=== PATIENT | female | born 1935 | race Caucasian/White ===

== ENCOUNTER 2017-01-25 10:34 | Outpatient (CLI) | payer MEDICARE, MEDICAID ==
[2017-01-25 13:15] LABS: ALT (SGPT) 21 U/L (8-55); AST (SGOT) 23 U/L (5-34); Alkaline Phosphatase 141 U/L (40-150); Anion Gap 13 mmol/L (10-20); BUN (Urea Nitrogen) 21 mg/dL (9.8-20.1); Calc. Creatinine Clearance 0 mL/min (70-130); Calcium 10.1 mg/dL (7.8-10.44); Carbon Dioxide 28 mmol/L (23-31); Chloride 104 mmol/L (98-107); Estimated GFR-MDRD 41; Globulin 3.5 g/dL (2.4-3.5); Protein, Total 7.7 g/dL (6.0-8.3)
[2017-01-25 13:17] LABS: #Eosinphils 0.2 thou/uL (0.0-0.7); #Lymphocytes 1.4 thou/uL (1.20-3.40); #Monocytes 0.7 thou/uL (0.11-0.59); #Neutrophils 6.4 thou/uL (1.40-6.50); %Basophils 0.5 % (0.0-1.0); %Eosinophils 2.4 % (0.0-10.0); %Lymphocytes 16.5 % (21.0-51.0); %Monocytes 7.4 % (0.0-10.0); Hematocrit 45.6 % (36.0-47.0); Macrocytosis SLIGHT = 6-15 cells (100X) (0-5/hpf); Mean Platelet Volume 7.6 fL (7.4-10.4); Polychromasia SLIGHT = 2-3 cells (100X) (0-2/hpf); Red Blood Cell (RBC) Count 4.16 mill/uL (4.20-5.40); White Blood Cell (WBC) Count 8.8 thou/uL (4.8-10.8)
--- NOTE | 2017-01-25 16:17 | RAD ---
TWO VIEW CHEST SERIES: 01/25/17 INDICATION: Preoperative evaluation. FINDINGS: The cardiac silhouette is enlarged. There has been placement of a left subclavian approach dual lead cardiac pacing device with leads overlying the expected region of the right atrium and right ventri ruben. There is vascular calcification. Chest is otherwise stable to 11/26/14. IMPRESSION: No focal consolidation. Prominent cardiac silhouette with indwelling left sided cardiac pacing device. POS: [facility]
== END 2017-01-25 10:35 | disposition home or self-care (01) ==
LOC: LABBT 10:34
PROVIDERS: ATTEND Specialist
DX: Z01.818 Encounter for other preprocedural examination (principal)
CPT/HCPCS: 71020; 80053; 85025; 93005; 93010

== ENCOUNTER 2017-02-05 08:43 | Observation (INO) | payer MEDICARE, MEDICAID ==
[2017-01-25 10:58] VITALS: BMI 28.7
[2017-02-05] MEDS ORDERED: CEFAZOLIN/Water 2 GM/20 ML SYRINGE ONE (09:32)
[2017-02-05] MEDS ORDERED: Bupivacaine PF 0.5% 30 ML VIAL ONE (10:06)
[2017-02-05] MEDS ORDERED: Midazolam HCl 2 mg/2 ml Vial ONE (10:07)
[2017-02-05] MEDS ORDERED: Fentanyl 100 MCG/2 ML VIAL ONE ×4 (10:07→15:05)
[2017-02-05] MEDS ORDERED: Ondansetron HCl/PF 4 MG/2 ML Vial ONE (11:10)
[2017-02-05] MEDS ORDERED: Lidocaine 1% PF 5 ML VIAL ONE (11:10)
[2017-02-05] MEDS ORDERED: diphenhydrAMINE 50 MG/ML VIAL ONE (11:10)
[2017-02-05] MEDS ORDERED: Metoclopramide HCl 10 MG/2 ML VIAL ONE (11:10)
[2017-02-05] MEDS ORDERED: Propofol 200 MG/20 ML VIAL ONE (11:10)
[2017-02-05] MEDS ORDERED: Glycopyrrolate 0.2 MG/ML 5 ML SYRINGE ONE (11:10)
[2017-02-05] MEDS ORDERED: Promethazine HCl 25 MG/ML VIAL IM/IV PRN (13:07)
[2017-02-05] MEDS ORDERED: Non-Formulary Medication 1 EACH PO PRN (13:07)
[2017-02-05] MEDS ORDERED: Ondansetron HCl/PF 4 MG/2 ML Vial IVP PRN ×2 (13:07→19:34)
[2017-02-05] MEDS ORDERED: Promethazine HCl 25 MG/ML VIAL ONE (13:23)
[2017-02-05] MEDS ORDERED: Morphine 4 MG/ML Carpuject ONE ×2 (15:36→16:14)
--- NOTE | 2017-02-05 18:52 | OP ---
DATE OF PROCEDURE: 02/05/2017 PREOPERATIVE DIAGNOSIS: Ventral incisional hernia. POSTOPERATIVE DIAGNOSIS: Ventral incisional hernia. OPERATION PERFORMED: Laparoscopic ventral hernia repair using a 10 x 15 cm Ventralex mesh patch. SURGEON: Panchito Martinez M.D. ANESTHESIA: General endotracheal. INDICATIONS: The patient is a 81-year-old white female. She is 3 years status post laparoscopic ri ght hemicolectomy. Her extraction site was in the right upper quadrant. She was recently recognize d to have developed an incisional hernia at this location. This appeared to be reducible, but enlar ging and I recommended repair. OPERATIVE PROCEDURE IN DETAIL: Informed consent was obtained. The patient was taken to the operati ng room where general endotracheal anesthesia was obtained with the patient in supine position. Abd omen was prepped with ChloraPrep and draped in sterile fashion. Local anesthetic was infiltrated an d a 5 mm left lateral abdominal incision was created through which a Veress needle was passed into t he peritoneal cavity and pneumoperitoneum established using carbon dioxide up to a pressure of 15 mm Hg. A 5 mm trocar port was passed through this same incision. Laparoscopic camera was passed throu gh this port. Under direct vision, 2 additional ports were placed including a 12 mm left upper quad rant port and a 5 mm left lower quadrant port. Attention was turned to the hernia in the right upper quadrant. There were absolutely no adhesions to the anterior abdominal wall. The hernia was easily visualized. It was significantly larger than anticipated, although there did not appear to be a large hernia sac. It is possible that this was a partial thickness hernia with complete disruption of the posterior layer and only partial disrupti on of the anterior layer. The fascial dimensions of this appeared to be 7 cm x 4 cm. Using 2 percutaneous puncture sites, the defect was closed using 4 interrupted sutures of 0 Ethibond , placed with the GraNee needle. These were tied with a pressure deflated with excellent closure of the defect. A 10 x 15 cm Ventralex mesh patch was obtained and prepared on the back table with placement of 4 qu adrant stay sutures, again using 0 Ethibond. The mesh was moistened and placed in the abdominal cav ity. The stay sutures were withdrawn through the abdominal wall at appropriate locations again usin g the GraNee needle. These sutures were all secured giving excellent approximation of the mesh over the hernia defect. A final Ethibond suture was placed in the center of the mesh using the GraNee n eedle. The secure strap device was then used to place a series of tacks circumferentially around the outsid e of the mesh patch as well as internally. This led to excellent mesh coverage. The 12 mm port site fascia was closed with 0 Vicryl suture using a GraNee needle. All ports and ins truments were removed under direct vision. Pneumoperitoneum was carefully evacuated. A 0.25% James ine with epinephrine was infiltrated in each port site and skin edges approximated with 4-0 Monocryl subcuticular suture. Dermabond was placed externally. An abdominal binder was placed as well. Th ere were no complications. The patient tolerated the procedure well and was taken to recovery room in stable condition.
[2017-02-05 19:28] LABS: Prothrombin Time 17.9 SEC (12.0-14.7)
[2017-02-05] MEDS ORDERED: Dextrose 50% Abboject 50 ML SYRINGE SLOW IVP PRN (19:34)
[2017-02-05] MEDS ORDERED: Promethazine HCl 25 MG/ML VIAL IM PRN (19:34)
[2017-02-05] MEDS ORDERED: hydrALAZINE 20 MG/ML VIAL SLOW IVP PRN (19:34)
[2017-02-05] MEDS ORDERED: HYDROcodone/Acetaminophen 7.5/325 mg Tablet PO PRN (19:34)
[2017-02-05] MEDS ORDERED: Dextrose 5% in Water 1,000 ML IV PRN (19:34)
[2017-02-05] MEDS ORDERED: Morphine 10 MG/ML VIAL SLOW IVP PRN (19:34)
[2017-02-05] MEDS: Morphine 10 MG/ML VIAL SLOW IVP PRN ×2 (20:03→22:40)
[2017-02-05] MEDS: D5 1/2 NS w/20 mEq KCL 1,000 ML IV SCH (20:09)
[2017-02-05] MEDS: Flecainide 50 MG TAB PO SCH (20:12)
[2017-02-05] MEDS ORDERED: Famotidine 20 MG TAB PO SCH (21:00)
[2017-02-05] MEDS ORDERED: cloNIDine 0.1 MG TAB PO SCH (21:00)
[2017-02-05] MEDS ORDERED: Digoxin 0.125 MG TAB PO SCH (21:00)
[2017-02-05] MEDS ORDERED: Atorvastatin Calcium 20 MG TAB PO SCH (21:00)
[2017-02-05] MEDS ORDERED: Enoxaparin Sodium 30 MG/0.3 ML SYRINGE SC SCH (21:00)
[2017-02-05] MEDS: HYDROcodone/Acetaminophen 7.5/325 mg Tablet PO PRN (21:04)
[2017-02-06 04:33] LABS: #Lymphocytes 1.3 thou/uL (1.20-3.40); #Monocytes 0.5 thou/uL (0.11-0.59); #Neutrophils 11.5 thou/uL (1.40-6.50); %Basophils 0.3 % (0.0-1.0); %Eosinophils 0.3 % (0.0-10.0); %Lymphocytes 9.5 % (21.0-51.0); %Monocytes 3.4 % (0.0-10.0); Hematocrit 45.9 % (36.0-47.0); Mean Platelet Volume 7.3 fL (7.4-10.4); Red Blood Cell (RBC) Count 4.19 mill/uL (4.20-5.40); White Blood Cell (WBC) Count 13.3 thou/uL (4.8-10.8)
[2017-02-06 04:49] LABS: Prothrombin Time 18.5 SEC (12.0-14.7)
[2017-02-06 04:51] LABS: Anion Gap 18 mmol/L (10-20); BUN (Urea Nitrogen) 17 mg/dL (9.8-20.1); Calc. Creatinine Clearance 49 mL/min (70-130); Calcium 9.3 mg/dL (7.8-10.44); Carbon Dioxide 20 mmol/L (23-31); Chloride 102 mmol/L (98-107); Estimated GFR-MDRD 49
[2017-02-06] MEDS: HYDROcodone/Acetaminophen 7.5/325 mg Tablet PO PRN ×2 (05:08→14:57)
[2017-02-06] MEDS ORDERED: Aspirin 325 mg Enteric Coated Tablet PO SCH (09:00)
[2017-02-06] MEDS ORDERED: Allopurinol 100 MG TAB PO SCH (09:00)
[2017-02-06] MEDS ORDERED: Letrozole 2.5 MG TAB PO SCH (09:00)
[2017-02-06] MEDS ORDERED: Potassium Chloride 20 MEQ TAB PO SCH (09:00)
[2017-02-06] MEDS ORDERED: FLU VACC TS2017-18 (>65YR) 0.5 ML SYRINGE IM ONE (09:00)
[2017-02-06] MEDS ORDERED: Furosemide 40 MG TAB PO SCH (09:00)
[2017-02-06] MEDS ORDERED: Hydroxyurea 500 MG CAP PO SCH (09:00)
[2017-02-06] MEDS: D5 1/2 NS w/20 mEq KCL 1,000 ML IV SCH (09:56)
[2017-02-06] MEDS: Flecainide 50 MG TAB PO SCH (09:59)
[2017-02-06] MEDS ORDERED: Aspirin 81 mg Enteric Coated Tablet PO SCH (10:45)
[2017-02-06 12:15] VITALS: BP 142/83; TEMP 98.2
[2017-02-06] MEDS ORDERED: Warfarin Sodium 5 MG TAB PO SCH (17:00)
[2017-02-07] MEDS ORDERED: Aspirin 81 mg Enteric Coated Tablet PO SCH (09:00)
[2017-02-07] MEDS ORDERED: Warfarin Sodium 2.5 MG TAB PO SCH (17:00)
== END 2017-02-06 16:22 | disposition home or self-care (01) ==
LOC: SDC 08:43 → SURG A 19:33
PROVIDERS: ADMIT Specialist; ATTEND Specialist
PROC: 0WUF4JZ Supplement Abdominal Wall with Synthetic Substitute, Percutaneous Endoscopic Approach (ICD-10-PCS; principal; 2017-02-05)
DX: K43.2 Incisional hernia without obstruction or gangrene (principal); I48.0 Paroxysmal atrial fibrillation; I10 Essential (primary) hypertension; Z79.82 Long term (current) use of aspirin; Z79.01 Long term (current) use of anticoagulants; Z79.899 Other long term (current) drug therapy; Z86.73 Personal history of transient ischemic attack (TIA), and cerebral infarction without residual deficits; Z85.3 Personal history of malignant neoplasm of breast; Z82.49 Family history of ischemic heart disease and other diseases of the circulatory system
CPT/HCPCS: 49654; 80048; 85025; 85610 ×2; 96361 ×2; 96372; 96374 ×2; 96376; 97139; G0008; G0378; Q2036; 36415; 90471; 90682; J0131; J1200; J1650; J2001; J2250; J2270; J2405; J2550; J2704; J2765; J3010; S0020

== ENCOUNTER 2017-08-31 13:46 | Observation (INO) | payer MEDICARE, MEDICAID ==
[~2017-08-31 13:46] MED LIST: Iopamidol 370 76% 100 ML VIAL ONE
[2017-08-31 14:13] LABS: Hemoglobin 15.1 g/dL (12.0-16.0); Mean Corpuscular HGB CONC 34.4 g/dL (32.0-36.0); Mean Corpuscular Hemoglobin 37.1 pg (27.0-31.0); Mean Platelet Volume 7.5 fL (7.4-10.4); Platelet Count 346 thou/uL (130-400); RBC Distribution Width 15.1 % (11.5-14.5); Red Blood Cell (RBC) Count 4.08 mill/uL (4.20-5.40); White Blood Cell (WBC) Count 7.9 thou/uL (4.8-10.8)
[2017-08-31 14:19] LABS: INR-International Normal Ratio 2.9; PTT 55.9 SEC (22.9-36.1); Prothrombin Time 31.3 SEC (12.0-14.7)
[2017-08-31 14:24] LABS: ALT (SGPT) 23 U/L (8-55); AST (SGOT) 30 U/L (5-34); Alkaline Phosphatase 110 U/L (40-150); Anion Gap 15 mmol/L (10-20); BUN (Urea Nitrogen) 20 mg/dL (9.8-20.1); CK (CPK) 103 U/L (29-168); Calc. Creatinine Clearance 0 mL/min (70-130); Carbon Dioxide 23 mmol/L (23-31); Chloride 106 mmol/L (98-107); Estimated GFR-MDRD 40; Globulin 3.9 g/dL (2.4-3.5); Glucose 101 mg/dL (83-110); Potassium 4.7 mmol/L (3.5-5.1); Protein, Total 7.9 g/dL (6.0-8.3); Sodium 139 mmol/L (136-145)
[2017-08-31 14:28] LABS: CKMB 3.6 ng/mL (0-6.6); Troponin I 0.015 ng/mL (< 0.028)
--- NOTE | 2017-08-31 14:36 | CT ---
NONCONTRAST HEAD CT: COMPARISON: 05/05/15. TECHNIQUE: Noncontrast head CT is performed from the skull base to the skull vertex. HISTORY: Left arm tingling since this morning. The patient has dizziness, syncope, and nausea. FINDINGS: Stable malacic changes involving the right occipital parietal and posterior frontal lobe. There is a ssociated white matter hypodensity. Additional malacic change is identified in the right frontal lob e. The remainder of the cerebrum demonstrates preservation of cortical peters-white matter differentia tion. No evidence of hydrocephalus. No midline shift. Basilar cisterns are patent. No parenchymal hemorrhage or extraaxial hematoma. Calvarium is intact. Adequate aeration of the sinuses and mastoid air cells. There is cavernous carotid atherosclerosis. IMPRESSION: No acute intracranial process. Results of the study were discussed with Dr. Voss, 08/31/17 at 2:08 p.m. CODE CR POS: [facility]
[2017-08-31 14:37] LABS: #Basophils 0.1 thou/uL (0.0-0.2); #Eosinphils 0.2 thou/uL (0.0-0.7); #Lymphocytes 1.9 thou/uL (1.20-3.40); #Monocytes 0.5 thou/uL (0.11-0.59); #Neutrophils 5.3 thou/uL (1.40-6.50); %Basophils 1.3 % (0.0-1.0); %Lymphocytes 23.6 % (21.0-51.0); %Monocytes 6.4 % (0.0-10.0); %Neutrophils 66.8 % (42.0-75.0); MDiff Complete? YES; Macrocytosis SLIGHT = 6-15 cells (100X) (0-5/hpf); PLT Morphology Comment Appears Adequate; Polychromasia SLIGHT = 2-3 cells (100X) (0-2/hpf)
--- NOTE | 2017-08-31 14:51 | CT ---
CT ANGIOGRAM OF THE NECK CT ANGIOGRAM OF THE HEAD: HISTORY: Left-sided tingling and dizziness. Syncope. COMPARISON: 05/05/15. TECHNIQUE: CT angiogram of the head and neck were performed in the axial plane. Three-dimensional reformatted i mages are submitted for interpretation. FINDINGS: Postcontrast head CT demonstrates malacic and gliotic changes which have already been described. No obvious loss of cortical peters-white matter differentiation. Bilateral ocular lens implants are noted and intact. Both globes are intact. Retrobulbar fat is pre served. Symmetric attenuation of the optic nerve and ocular rectus muscles. Adequate aeration of sinuses and mastoid air cells. Aerodigestive tract is patent. No mucosal abnormality. No obvious masses within the oral cavity. M idline fatty raphae of the tongue appears to be preserved. Epiglottis has a normal caliber. Preepig lottic fat is preserved. Minimal heterogeneity of the right thyroid lobe. Symmetric attenuation of the parotid and submandibular glands. Sternocleidomastoid is unremarkable. No evidence of lymphadenopathy by size criteria. Cervical spine vertebral body height is maintained. No fracture. Varying degrees of central canal s tenosis and foraminal narrowing on the basis of degenerative change. The current study is not tailor ed to assess the overall degree of stenosis. Lung apices and upper mediastinum are unremarkable. CT ANGIOGRAM: The aortic arch has appropriate enhancement and luminal diameter. Atherosclerosis is noted. RIGHT CAROTID: The right carotid artery origin has appropriate enhancement and luminal diameter. There is calcified and noncalcified plaque in the right carotid bifurcation. There is absence of contrast in the right carotid bifurcation and throughout the entire right internal carotid artery to the level of the mast oid segment. LEFT CAROTID: The origin of the left carotid artery is appropriate in terms of its degree of enhancement and lumina l diameter. The left common carotid artery has appropriate enhancement and luminal diameter. There is evidence of previous left carotid endarterectomy change, similar to the prior examination. The le ft carotid bifurcation and internal carotid artery have appropriate enhancement and luminal diameter. Bilateral subclavian arteries are patent. The left and right cervicovertebral arteries are patent th roughout the course of the neck. The left vertebral artery is dominant. CT ANGIOGRAM OF THE HEAD: There is diminutive intracranial right internal carotid artery. Atherosclerosis in both cavernous se gments are noted. The intracranial left internal carotid artery is unremarkable. ANTERIOR CIRCULATION: The left and right A1 segments have appropriate enhancement and luminal diameter. Both A2 segments h ave appropriate enhancement and luminal diameter. The left and right M1 segments have appropriate en hancement and luminal diameter. Symmetric proximal MVA branches. POSTERIOR CIRCULATION: Both vertebral arteries supply a normal-appearing basilar artery. Limited evaluation of the PICA art eries. Both P1 segments have symmetric enhancement and luminal diameter. 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 Findings are similar to the previous exami nation. There is a small amount of enhancement in the intracranial segment of the right internal car otid artery which is presumed to be due to collateral flow. Findings are similar to the previous exa mination. Nevertheless, no significant stenosis in the anterior circulation on the right side. Results of the study were discussed with Dr. Gtz 08/31/17 at 2:26 p.m. CODE CR POS: [facility]
[2017-08-31 15:06] LABS: Bilirubin Negative (Negative); Blood, Urine Small (Negative); Clarity CLEAR (Clear); Glucose, Urine (Dipstick) Negative (Negative); Leukocyte Negative (Negative); Nitrite Negative (Negative); Protein, Urine (Dipstick) Negative (Neg-Trace); Urobilinogen 0.2 mg/dL (0.2-1.0)
[2017-08-31 15:08] LABS: Bacteria/HPF None Seen HPF (None Seen); Hyaline Casts/LPF 0-3 HYALINE CAST LPF (0-3 Hyaline); Pathc Cast-AUWi Flag 0.14 (0-2.49); Squamous Epithelial 0-3 HPF (0-3); WBC/HPF 0-3 HPF (0-3)
[2017-08-31] MEDS ORDERED: hydrALAZINE 20 MG/ML VIAL SLOW IVP PRN (16:38)
[2017-08-31] MEDS ORDERED: Milk Of Magnesia 30 ML UDCUP PO PRN (16:39)
[2017-08-31] MEDS ORDERED: Acetaminophen 325 MG TAB PO PRN (16:39)
[2017-08-31] MEDS ORDERED: Ondansetron HCl/PF 4 MG/2 ML Vial IVP PRN (16:39)
[2017-08-31 17:38] LABS: Troponin I 0.011 ng/mL (< 0.028)
[2017-08-31 18:43] VITALS: BMI 30.7
[2017-08-31 20:26] LABS: Troponin I 0.018 ng/mL (< 0.028)
[2017-08-31] MEDS: Docusate 100 MG CAP PO SCH (22:04)
--- NOTE | 2017-09-01 02:00 | HP ---
PRIMARY CARE PHYSICIAN: Heidi Domingo M.D. PRESENTING COMPLAINT: Left arm tingling, "my face was drooping." HISTORY OF PRESENT ILLNESS: Ms. 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 She presented to the hospital after she had some dizziness and nausea around noon today. It was associated with left facial droop and left arm tingling. She also had some slurred speech and dizziness, associated with headache. She will remain well oriented. Denied chest pain, shortness of breath, fevers, chills, cough, sputum production. She had no other abdominal or urinary symptoms. At the emergency room, she had a NIH score of 2. CT brain and CT [place] of [place] angio with contrast, report negative. Labs were relatively unremarkable. An assessment of TIA, as symptoms had mostly resolved while in the emergency room was made and the patient was admitted for observation. PAST MEDICAL HISTORY: As stated in the HPI. PAST SURGICAL HISTORY: Mastectomy, carotid endarterectomy, herniorrhaphy and colectomy. FAMILY HISTORY: Reviewed and noncontributory. SOCIAL HISTORY: Does not drink alcohol, smoke cigarettes or use illicit drugs. ALLERGIES: No known drug allergies. HOME MEDICATIONS: Allopurinol 100 mg q.a.m., aspirin 81 mg daily, atorvastatin 20 mg at bedtime, clonidine 0.1 mg q.p.m., digoxin 0.125 mg q.p.m., flecainide 100 mg b.i.d., furosemide 40 mg q.a.m., hydrocodone/acetaminophen 1-2 tablets p.o. q.4 hours p.r.n. for pain, Hydrea 500 mg q.a.m., letrozole 2.5 mg q.a.m., potassium chloride 20 mEq q.a.m., warfarin 2.5 mg daily. REVIEW OF SYSTEMS: Twelve point review of systems conducted and negative except as stated in HPI. PHYSICAL EXAMINATION: VITAL SIGNS: On presentation, blood pressure 163/92, pulse rate 65, oxygen saturation is 98% on room air, respiratory rate 20. GENERAL: Not in acute distress, lying comfortably in bed. HEENT: Normocephalic, atraumatic. Not pale, anicteric. Eyes, residual peripheral field defects. Moist mucous membranes. RESPIRATORY: Vesicular breath sounds bilaterally. No wheezes, rales or rhonchi. CARDIOVASCULAR: S1 and S2, only irregularly irregular rhythm, regular rate. No murmurs, rubs or gallops. ABDOMEN: Soft, nontender, nondistended. No hepatosplenomegaly. Bowel sounds normoactive. EXTREMITIES: Moves all extremities. Strength 4/5 bilateral upper and lower extremities. NEUROLOGIC: Alert and well oriented. No obvious focal deficits. No hyperreflexia. SKIN: Warm, dry, well-perfused. No rashes or lesions. PSYCHIATRIC: Normal mood and affect. LABORATORY DATA: WBC 7.9, hemoglobin 15.1, platelet count 346. INR 2.9. Sodium 139, potassium 4.7, chloride 106, carbon dioxide 23, anion gap 15, BUN 20 , creatinine 1.27, glucose 106, calcium 10. IMAGING: Brain CT, CT angiography, CT [place] angio with contrast negative as stated in the HPI. EKG with no signs of acute ischemia. ASSESSMENT AND PLAN: 1. Transient ischemic attack: The patient with history of CVA who presents with TIA-like symptoms, which have likely resumed while in the hospital. She will be admitted to the stroke unit and monitored on telemetry. Lipid profile will be dropping as well as a TSH. A bedside evaluation will be made, PT/OT will also be consulted as well as Neurology. We will monitor her vital signs closely and continue on her home medications of aspirin and atorvastatin for secondary prevention. She might likely require an MRI, but we will await neurologic evaluation for now. 2. Hypertension: Blood pressure was slightly elevated on admission. We will resume her home medications and monitor blood pressure closely. 3. Paroxysmal atrial fibrillation: The patient is currently rate controlled. We will resume home medications and monitor INR daily. 4. History of CVA: See problem #1. 5. Status post pacemaker placement. CODE STATUS: DNR, confirmed with the patient. She has a living will. Deep venous thrombosis prophylaxis: The patient on therapeutic Coumadin. MTDD
[2017-09-01 05:19] LABS: #Basophils 0.1 thou/uL (0.0-0.2); #Eosinphils 0.2 thou/uL (0.0-0.7); #Lymphocytes 2.1 thou/uL (1.20-3.40); #Monocytes 0.6 thou/uL (0.11-0.59); #Neutrophils 6.2 thou/uL (1.40-6.50); %Basophils 0.9 % (0.0-1.0); %Eosinophils 1.9 % (0.0-10.0); %Lymphocytes 23.1 % (21.0-51.0); %Monocytes 6.9 % (0.0-10.0); %Neutrophils 67.1 % (42.0-75.0); Hemoglobin 15.7 g/dL (12.0-16.0); Mean Corpuscular HGB CONC 33.7 g/dL (32.0-36.0); Mean Corpuscular Hemoglobin 36.4 pg (27.0-31.0); Mean Platelet Volume 7.6 fL (7.4-10.4); Platelet Count 360 thou/uL (130-400); Red Blood Cell (RBC) Count 4.33 mill/uL (4.20-5.40); White Blood Cell (WBC) Count 9.3 thou/uL (4.8-10.8)
[2017-09-01 05:22] LABS: INR-International Normal Ratio 2.7; Prothrombin Time 29.7 SEC (12.0-14.7)
[2017-09-01 06:01] LABS: Anion Gap 14 mmol/L (10-20); BUN (Urea Nitrogen) 19 mg/dL (9.8-20.1); Calc. Creatinine Clearance 48 mL/min (70-130); Calcium 9.7 mg/dL (7.8-10.44); Carbon Dioxide 21 mmol/L (23-31); Cardiac Risk 3.7 (Less than 4.5); Chloride 106 mmol/L (98-107); Cholesterol 167 mg/dl (< 200 Desired); Estimated GFR-MDRD 46; Glucose 114 mg/dL (83-110); HDL Cholesterol 45 mg/dL (>60 Neg Risk); LDL Cholesterol, Calculated 94 mg/dL; Potassium 4.1 mmol/L (3.5-5.1); Sodium 137 mmol/L (136-145); Triglycerides 141 mg/dL (Less than 150)
[2017-09-01] MEDS ORDERED: Aspirin 325 mg Enteric Coated Tablet PO SCH ×2 (09:00)
[2017-09-01] MEDS: Allopurinol 100 MG TAB PO SCH (09:32)
[2017-09-01] MEDS: Aspirin 81 mg Enteric Coated Tablet PO SCH (09:32)
[2017-09-01] MEDS: Furosemide 40 MG TAB PO SCH (09:33)
[2017-09-01] MEDS: Docusate 100 MG CAP PO SCH ×2 (09:33→20:22)
[2017-09-01] MEDS: Hydroxyurea 500 MG CAP PO SCH (09:33)
[2017-09-01] MEDS: Potassium Chloride 20 MEQ TAB PO SCH (09:33)
--- NOTE | 2017-09-01 13:44 | PDOC.PN ---
- Subjective Encounter Start Date: 09/01/17 Encounter Start Time: 13:44 Patient seen and examined following admission for stroke-like symptoms which have since resolved and patient feels back to her baseline. Nurology consulted and will evaluate patient. She has no complaints and feels well. No acute events overnight. - Objective Resuscitation Status: Resuscitation Status DNR:Do Not Resuscitate MAR Reviewed: Yes Vital Signs & Weight: Vital Signs (12 hours) Temp Pulse Pulse Pulse Resp BP BP 09/01/17 11:45 97.5 F L 73 20 09/01/17 10:00 70 81 140/77 133/77 09/01/17 08:00 97.4 F L 83 20 09/01/17 03:58 97.3 F L 65 16 BP Pulse Ox 09/01/17 11:45 129/83 98 09/01/17 10:00 09/01/17 08:00 150/78 H 98 09/01/17 03:58 134/98 H 97 Weight Weight 168 lb I&O: 08/31/17 09/01/17 09/02/17 06:59 06:59 06:59 Intake Total 240 Balance 240 Result Diagrams: 09/01/17 04:47 09/01/17 04:47 Phys Exam - Physical Examination Constitutional: NAD HEENT: PERRLA, moist MMs, sclera anicteric Neck: no JVD, supple, full ROM Respiratory: no wheezing, no rales, no rhonchi, clear to auscultation bilateral Cardiovascular: RRR, no significant murmur, no rub Gastrointestinal: soft, non-tender, no distention, positive bowel sounds Musculoskeletal: no edema, pulses present Neurological: non-focal, moves all 4 limbs Psychiatric: normal affect, A&O x 3 Skin: no rash, normal turgor Dx/Plan (1) TIA (transient ischemic attack) Status: Resolved Qualifiers: Transient cerebral ischemia type: unspecified Qualified Code(s): G45.9 - Transient cerebral ischemic attack, unspecified Comment: Imagine without new changes. Patient back to her baseline and awaiting neurology evaluation. (2) S/P placement of cardiac pacemaker Code(s): Z95.0 - PRESENCE OF CARDIAC PACEMAKER Status: Chronic (3) History of CVA (cerebrovascular accident) Code(s): Z86.73 - PRSNL HX OF TIA (TIA), AND CEREB INFRC W/O RESID DEFICITS Status: Chronic (4) Anticoagulant long-term use Code(s): Z79.01 - ASSISTED (CURRENT) USE OF ANTICOAGULANTS Status: Chronic Comment: INR therapeutic. Continue home dose of Coumadin. Daily INR. (5) Atrial fibrillation Code(s): I48.91 - UNSPECIFIED ATRIAL FIBRILLATION Status: Chronic Qualifiers: Atrial fibrillation type: paroxysmal Qualified Code(s): I48.0 - Paroxysmal atrial fibrillation Comment: Stable, rate controlled and chest pain free. (6) HTN (hypertension) Code(s): I10 - ESSENTIAL (PRIMARY) HYPERTENSION Status: Chronic Qualifiers: Hypertension type: essential hypertension Qualified Code(s): I10 - Essential (primary) hypertension Comment: Fairly well controlled. Continue home meds. (7) Paroxysmal atrial fibrillation Code(s): I48.0 - PAROXYSMAL ATRIAL FIBRILLATION Status: Chronic - Plan cont current plan of care, plan discussed w/ family, PT/OT, out of bed/ambulate f/u Neuo recs. Continue current management. PT/OT. Review of Systems - Medications/Allergies Allergies/Adverse Reactions: Allergies Allergy/AdvReac Type Severity Reaction Status Date / Time No Known Allergies Allergy Verified 01/25/17 10:58 Medications: Current Medications Acetaminophen (Tylenol) 650 mg PO Q4H PRN PRN Reason: Headache/Fever or Pain Allopurinol (Zyloprim) 100 mg PO QAM [facility] Last Admin: 09/01/17 09:32 Dose: 100 mg Aspirin (Ecotrin) 81 mg PO DAILY [facility] [place] Last Admin: 09/01/17 09:32 Dose: 81 mg Atorvastatin Calcium (Lipitor) 20 mg PO HS [facility] [place] Digoxin (Lanoxin) 0.125 mg PO QPM [facility] [place] Docusate Sodium (Colace) 100 mg PO BID [facility] [place] Last Admin: 09/01/17 09:33 Dose: Not Given Furosemide (Lasix) 40 mg PO QAM [facility] [place] Last Admin: 09/01/17 09:33 Dose: 40 mg Hydralazine HCl (Apresoline) 10 mg SLOW IVP Q4H PRN PRN Reason: BP > 220/110 Hydroxyurea (Hydrea) 500 mg PO QAM [facility] [place] Last Admin: 09/01/17 09:33 Dose: 500 mg Magnesium Hydroxide (Milk Of Magnesium) 30 ml PO DAILYPRN PRN PRN Reason: Constipation Ondansetron HCl (Zofran) 4 mg IVP Q6H PRN PRN Reason: Nausea/Vomiting Potassium Chloride (K-Dur) 20 meq PO QAM [facility] [place] Last Admin: 09/01/17 09:33 Dose: 20 meq Sodium Chloride (Flush - Normal Saline) 10 ml IVF Q12HR [facility] [place] Last Admin: 09/01/17 09:33 Dose: 10 ml Sodium Chloride (Flush - Normal Saline) 10 ml IVF PRN PRN PRN Reason: Saline Flush Warfarin Sodium (Coumadin) 2.5 mg PO SuTuThSa@1700 JENNIFER Warfarin Sodium (Coumadin) 1.25 mg PO MoWeFr@1700 [facility]
[2017-09-01] MEDS ORDERED: Warfarin Sodium 2.5 MG TAB PO SCH ×2 (17:00)
[2017-09-01] MEDS ORDERED: Warfarin Sodium 5 MG TAB PO SCH (17:00)
[2017-09-01] MEDS ORDERED: Digoxin 0.125 MG TAB PO SCH (21:00)
[2017-09-01] MEDS ORDERED: Atorvastatin Calcium 20 MG TAB PO SCH (21:00)
[2017-09-02 04:43] VITALS: BP 118/59
[2017-09-02 05:40] LABS: #Basophils 0.1 thou/uL (0.0-0.2); #Eosinphils 0.2 thou/uL (0.0-0.7); #Lymphocytes 1.5 thou/uL (1.20-3.40); #Monocytes 0.6 thou/uL (0.11-0.59); #Neutrophils 5.2 thou/uL (1.40-6.50); %Eosinophils 2.7 % (0.0-10.0); %Lymphocytes 19.9 % (21.0-51.0); %Monocytes 7.8 % (0.0-10.0); %Neutrophils 68.6 % (42.0-75.0); Hemoglobin 14.8 g/dL (12.0-16.0); Mean Corpuscular HGB CONC 34.1 g/dL (32.0-36.0); Mean Corpuscular Hemoglobin 36.6 pg (27.0-31.0); Mean Platelet Volume 7.3 fL (7.4-10.4); Platelet Count 312 thou/uL (130-400); RBC Distribution Width 15.1 % (11.5-14.5); Red Blood Cell (RBC) Count 4.04 mill/uL (4.20-5.40); White Blood Cell (WBC) Count 7.5 thou/uL (4.8-10.8)
[2017-09-02 05:44] LABS: INR-International Normal Ratio 2.7; Prothrombin Time 29.7 SEC (12.0-14.7)
[2017-09-02 05:57] LABS: Anion Gap 16 mmol/L (10-20); BUN (Urea Nitrogen) 18 mg/dL (9.8-20.1); Calc. Creatinine Clearance 45 mL/min (70-130); Calcium 9.2 mg/dL (7.8-10.44); Carbon Dioxide 21 mmol/L (23-31); Chloride 102 mmol/L (98-107); Estimated GFR-MDRD 44; Glucose 98 mg/dL (83-110); Potassium 3.9 mmol/L (3.5-5.1); Sodium 135 mmol/L (136-145)
[2017-09-02 08:03] VITALS: TEMP 97.6
[2017-09-02] MEDS: Potassium Chloride 20 MEQ TAB PO SCH (08:03)
[2017-09-02] MEDS: Docusate 100 MG CAP PO SCH (08:03)
[2017-09-02] MEDS: Hydroxyurea 500 MG CAP PO SCH (08:03)
[2017-09-02] MEDS: Allopurinol 100 MG TAB PO SCH (08:03)
[2017-09-02] MEDS: Furosemide 40 MG TAB PO SCH (08:03)
[2017-09-02] MEDS: Aspirin 81 mg Enteric Coated Tablet PO SCH (08:04)
--- NOTE | 2017-09-02 09:41 | CON ---
DATE OF CONSULTATION: 09/02/2017 CONSULTING PHYSICIAN: Hospitalist Service. IMPRESSION: 1. Transient ischemic attack, possibly in the basilar artery distribution despite aspirin and Coumad in. 2. History of atrial fibrillation. 3. 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 4. Pacemaker implantation. PLAN: 1. Continue aspirin and Coumadin for the time being. 2. Discuss the situation with Dr. Gaffney tomorrow to determine whether she wants to change anticoagula nts. HISTORY OF PRESENT ILLNESS: Ms. Rincon is an 82-year-old female with a past history of a right hemisp heric stroke, hypertension, GERD, pacemaker, DVT, and atrial fibrillation. She presented with a 2-da y history of some vertigo-like dizziness with nausea, left facial drooping and left hand tingling. T his lasted throughout the day, but has cleared up at this point. She came in and had a CT and CT ang iogram. There is a right internal carotid artery occlusion. There is encephalomalacia in the right parietal and posterior artery distribution. No acute changes were noted. She had had a therapeutic INR. PAST MEDICAL HISTORY: As listed above. ALLERGIES: None. SOCIAL HISTORY: No tobacco or alcohol use. PAST SURGICAL HISTORY: Endarterectomy, mastectomy. MEDICATION LIST: Reviewed. REVIEW OF SYSTEMS: Positive for excessive platelets and red cells. PHYSICAL EXAMINATION: GENERAL: She is a healthy-appearing elderly lady, sitting up, in no distress. VITAL SIGNS: Stable. She is afebrile. HEENT: Pupils equal and reactive. Conjunctivae clear. Oropharynx clear. NECK: Supple. EXTREMITIES: No cyanosis. NEUROLOGIC EXAM: She is alert and appropriate. Her speech is fluent and clear. Cranial nerve exam shows a left homonomous field cut of a mild degree. Her motor exam shows symmetric strength. She stevenson s good balance. She can walk independently. No abnormal movements were seen. LABORATORY STUDIES: Reviewed with an INR of 2.9. CT images were reviewed. SUMMARY: This is an elderly woman with a past history of stroke and recurrent ischemic symptoms desp ite aspirin and Coumadin. We would consider switching her from Coumadin to Pradaxa if Cardiology is in agreement. She will follow up with her this week and get their opinion.
--- NOTE | 2017-09-02 13:48 | DIS ---
DATE OF ADMISSION: 08/31/2017 DATE OF DISCHARGE: 09/02/2017 DISCHARGE DIAGNOSES: 1. Transient ischemic attack. 2. History of cerebrovascular accident. 3. Status post cardiac pacemaker placement. 4. Long-term anticoagulant use. 5. Atrial fibrillation, paroxysmal. 6. Hypertension. HISTORY OF PRESENT ILLNESS/HOSPITAL COURSE: Ms. Karissa Rincon is an 82-year-old female who presented t o the emergency room with left arm tingling and facial drooping. She has a history of CVA, hypertens ion, GERD, diverticulitis, atrial fibrillation, previous DVTs and PEs, on Coumadin. She presented af ter she sustained dizziness and nausea around noon on the day of presentation. This was associated w ith left facial droop and left arm tingling, as well as slurred speech and a headache. She remained well oriented. She has had no chest pain, shortness of breath, fever, chills, cough or sputum produc tion. She had no other symptoms. At the emergency room, she was evaluated and found to have an NIH score of 2. CT brain without contrast and CTA showed no new findings. It showed old stenosis, but n othing acute, an assessment of TIA was made and the patient was admitted for further workup. On admi ssion, her symptoms completely resolved and she had 5/5 strength and facial droop completely resolved as well as her speech. She was evaluated by Cardiology and no further recommendations were made. C onsideration was made to likely switch her from Coumadin to Pradaxa if Cardiology was in agreement. She is to follow up with Cardiology this week and get their opinion regarding the switch of her medic ations. Otherwise, she was back to her baseline and deemed stable for discharge. DISCHARGE MEDICATIONS: Aspirin 81 mg daily, atorvastatin 20 mg at bedtime, digoxin 0.125 mg every , potassium chloride 20 mEq daily, letrozole 2.5 mg daily, furosemide 40 mg daily, allopurinol 1 00 mg daily, Hydrea 500 mg daily, Coumadin 2.5 mg every Saturday, Saturday, , and Saturday, and Coumadin 1.25 mg every Saturday, Saturday, and Saturday. PHYSICAL EXAMINATION: The patient was seen and examined. VITAL SIGNS: On day of discharge, temperature 97.6 degree Fahrenheit, pulse rate 63, respiratory rat e 18, oxygen saturation 98% on room air, blood pressure 118/59. GENERAL: Not in acute distress, sitting actively in bed. HEENT: Normocephalic and atraumatic. PERRLA, EOMI. Moist mucous membranes. NECK: Supple, full range of movement. No JVD. RESPIRATORY: Vesicular breath sounds bilaterally. No wheezes, rales or rhonchi. CARDIOVASCULAR: S1 and S2 only, with regular rate and irregular rhythm. No murmurs, rubs or gallops . ABDOMEN: Soft, nontender, nondistended, positive bowel sounds. EXTREMITIES: No edema. Moves all extremities spontaneously. NEUROLOGIC: Alert and well-oriented to time, place and person. No focal deficits. Strength 5/5 carlos bally. PSYCHIATRIC: Normal with affect. SKIN: Warm, dry, well-perfused. No rashes or lesions. LABORATORY DATA: WBC is 7.5, hemoglobin 14.8, platelet count 312. INR 2.7. Sodium 135, potassium 3 .9, chloride 102, carbon dioxide 21, anion gap 16, BUN 18, creatinine 1.19, glucose 98, calcium 9.2. IMAGING: CT angiography, normal CT [place] of [place] angio with contrast. CT without contrast, no ac rampart findings. CONSULTS: Neurology. CONDITION AT DISCHARGE: Stable and improved. PROCEDURES: None. DIET: Heart healthy. CARE GOALS: To follow up with Cardiology in clinic this week regarding switching the patient from Co umadin to Pradaxa. ACTIVITIES: Resume as tolerated. Discharge time 65 minutes including chart review and documentation.
[2017-09-02] MEDS ORDERED: Warfarin Sodium 1.25 MG HALF.TAB PO SCH (17:00)
--- NOTE | 2017-09-04 14:24 | EKG ---
Test Reason : Blood Pressure : / mmHG Vent. Rate : 080 BPM Atrial Rate : 096 BPM P-R Int : 000 ms QRS Dur : 158 ms QT Int : 450 ms P-R-T Axes : 000 -77 100 degrees QTc Int : 519 ms Ventricular-paced rhythm Abnormal ECG Confirmed by PARVIN DAVIS, DEAN ([id number]), editor farm journal GRANT NEVAREZ ([id number] on 09/04/2017 2:24:05 PM Referred By: PARVIN Confirmed By:DEAN MELENDREZ MD
== END 2017-09-02 10:25 | disposition home or self-care (01) ==
LOC: ERS 13:46 → 2SE 16:07
PROVIDERS: ADMIT Internal Medicine; ATTEND Internal Medicine
DX: G45.9 Transient cerebral ischemic attack, unspecified (principal); I48.0 Paroxysmal atrial fibrillation; I10 Essential (primary) hypertension; Z79.01 Long term (current) use of anticoagulants; Z86.73 Personal history of transient ischemic attack (TIA), and cerebral infarction without residual deficits; Z95.0 Presence of cardiac pacemaker; Z79.82 Long term (current) use of aspirin; Z79.899 Other long term (current) drug therapy
CPT/HCPCS: 70450; 70496; 70498; 80048 ×2; 80053; 80061; 82550; 82553; 82962; 84484 ×2; 85025 ×3; 85610 ×3; 85730; 86850; 86900; 86901; 93005; 97116; 97139; 99285; G0378; G8978; G8979; G8980; 36415; 36416; 81003; 81015; A4216; G8996-GN-CH; G8997-GN-CH

== ENCOUNTER 2017-10-08 08:55 | Outpatient (CLI) | payer MEDICARE, MEDICAID ==
[2017-10-08 10:10] LABS: Hemoglobin 15.4 g/dL (12.0-16.0); Mean Corpuscular HGB CONC 33.9 g/dL (32.0-36.0); Mean Corpuscular Hemoglobin 36.3 pg (27.0-31.0); Mean Platelet Volume 7.3 fL (7.4-10.4); Platelet Count 368 thou/uL (130-400); RBC Distribution Width 15.1 % (11.5-14.5); Red Blood Cell (RBC) Count 4.25 mill/uL (4.20-5.40); White Blood Cell (WBC) Count 9.3 thou/uL (4.8-10.8)
[2017-10-08 10:19] LABS: INR-International Normal Ratio 2.7; PTT 49.3 SEC (22.9-36.1); Prothrombin Time 28.6 SEC (12.0-14.7)
[2017-10-08 10:25] LABS: Anion Gap 17 mmol/L (10-20); BUN (Urea Nitrogen) 30 mg/dL (9.8-20.1); Calc. Creatinine Clearance 0 mL/min (70-130); Calcium 10.2 mg/dL (7.8-10.44); Carbon Dioxide 26 mmol/L (23-31); Chloride 102 mmol/L (98-107); Estimated GFR-MDRD 36; Glucose 119 mg/dL (83-110); Potassium 4.1 mmol/L (3.5-5.1); Sodium 141 mmol/L (136-145)
--- NOTE | 2017-10-08 17:21 | EKG ---
Test Reason : Blood Pressure : / mmHG Vent. Rate : 082 BPM Atrial Rate : 082 BPM P-R Int : 000 ms QRS Dur : 088 ms QT Int : 358 ms P-R-T Axes : 000 070 -84 degrees QTc Int : 418 ms Atrial fibrillation with premature ventricular or aberrantly conducted complexes and some paced beats Abnormal ECG When compared with ECG of 31-AUG-2017 13:51, Atrial fibrillation has replaced Electronic ventricular pacemaker Confirmed by DR. Terra PINA ([id number]) on 10/08/2017 5:20:59 PM Referred By: [facility] Confirmed By:DR. Terra PINA
== END 2017-10-08 08:56 | disposition home or self-care (01) ==
LOC: LABBT 08:55
PROVIDERS: ATTEND Internal Medicine Cardiovascular Disease
DX: Z01.818 Encounter for other preprocedural examination (principal); I48.91 Unspecified atrial fibrillation
CPT/HCPCS: 80048; 85027; 85610; 85730; 93005; 93010

== ENCOUNTER 2017-10-14 09:24 | Day surgery (SDC) | payer MEDICARE, MEDICAID ==
[2017-10-08 09:14] VITALS: BMI 30.4
[2017-10-14 10:22] LABS: INR-International Normal Ratio 1.8; PTT 40.6 SEC (22.9-36.1); Prothrombin Time 20.9 SEC (12.0-14.7)
[2017-10-14] MEDS ORDERED: Heparin 10,000 UNITS/1 ML VIAL ONE (11:27)
[2017-10-14] MEDS ORDERED: Heparin 0 ML ONE (11:27)
[2017-10-14] MEDS ORDERED: Lidocaine 1% (PF) 30 ML VIAL ONE (11:27)
[2017-10-14] MEDS ORDERED: PROPOFOL 0 ML ONE (12:31)
[2017-10-14] MEDS ORDERED: Propofol 500 MG/50 ML VIAL ONE ×2 (13:25→14:04)
[2017-10-14] MEDS ORDERED: DOPamine 400 MG/D5W 250 ML 250 ML ONE (14:12)
[2017-10-14] MEDS ORDERED: PHENYLEPHRINE-NS 100 MCG/ML 10 ML SYRINGE ONE (14:48)
[2017-10-14] MEDS ORDERED: PROPOFOL 200 MG/20 ML VIAL ONE (14:48)
--- NOTE | 2017-10-14 15:35 | ECHO ---
TRANSESOPHAGEAL ECHOCARDIOGRAM: Date: 10/14/17 Ms. Rincon is an 82-year-old woman with prior history of atrial fibrillation and flutter. She has had a complete right coronary artery occlusion and subsequent induction of the left side, a negative stress test in the past, history of stage III breast cancer with mastectomy and chemotherapy. She has had history of paroxysmal atrial fibrillation/flutter with pacemaker sufficiently controlling her rates and overlying her atrial flutters about 60% of the time. Flecainide was stopped recently. She is here for an ablation procedure. The INR was found to be low and a decision made to proceed with XIOMY to rule out intracardiac clots prior to cardioversion/ablation procedure. PROCEDURE: The patient received propofol from the anesthesia specialist. After adequate level of sedation achieved, the standard transesophageal echocardiogram probe was passed into the esophagus without difficulty. Patient tolerated procedure well. No complications. RESULTS: Left atrium is enlarged about 6.7 cm in horizontal diameter. Left atrial appendage is well visualized, contains no clots. Left atrial appendage velocities up to 60 cm per second. Four of four pulmonary veins are well seen. The mitral valve is without significant regurgitation. Left ventricular systolic function is preserved, about 60% noted. There is mild concentric left ventricle hypertrophy seen. Right chambers nondilated. Pericardial space with fat pad noted in it. The aortic valve leaflet with calcification noted in the right coronary artery a cause. The left main coronary artery is clearly delineated. Calcium deposits noted around it. Tricuspid valve borderline visualized, appears to be normal with mild regurgitation only. Pulmonic valve not well seen. Visualized portion of the ascending and descending aorta without aneurysm or dissection. CONCLUSION: 1. No intracardiac clots. 2. Moderate to severe left atrial enlargement. 3. Normal left ventricular systolic function. 4. Concentric left hypertrophy. 5. No shunts evident with bubble study. 6. Mild aortic regurgitation, heavy focal calcification without evidence of stenosis. 7. No other valvular heart disease. 8. Fat pad in the pericardium. MTDD
--- NOTE | 2017-10-14 22:00 | OP ---
DATE OF PROCEDURE: 10/14/2017 ELECTROPHYSIOLOGY AND RADIOFREQUENCY ABLATION REPORT REFERRING PHYSICIAN: Mercy Gaffney M.D. REASON FOR PROCEDURE: Mrs. Rincon is an 82-year-old woman with history of atrial fibrillation and flutter. She has been on flecainide, which recently stopped, but prior to that she mostly had atrial flutter which was partially pace terminated. She had increasing frequency of episodes and plan was to ablate her cavotricuspid isthmus to reduce the atrial flutter tendency. On arrival to the hospital, though she was in atrial fibrillation. We discussed the merits of both CTI ablation with probably venous isolation procedure, but due to her comorbidities, eventually, she decided not to go for elected ablation. She has a history of carotid artery stenosis and prior CVAs not unreasonable. Plan was to proceed with XIOMY which showed no intracardiac clots and then an ablation procedure for of the cavotricuspid isthmus. PROCEDURE IN DETAIL: The patient received propofol by Anesthesia specialist. After adequate sedation achieved, the right femoral venous area was prepped, draped and anesthetized using subcutaneous lidocaine. Under ultrasound guidance , the right femoral vein was cannulated and two 8-English short sheaths were introduced. Through this, a Decapolar catheter was advanced to the CS position as His bundle position and right ventricle. Pace mapping, recording was performed in each location, then a ThermoCool SF ST ablation catheter was advanced to the right atrium. It was used to obtain right atrial map and cavotricuspid isthmus ablation was performed. Due to the persistent atrial fibrillation, amiodarone IV 150 gram was given, also a cardioversion was performed at 150 joule shock promptly back to sinus rhythm. Following that with proximal CS pacing, a 3D map of the right atrium was performed and we were able to demonstrate cavotricuspid isthmus block. The prolongation of transisthmus time over 200 milliseconds seen due to the longest transisthmus time by the ablation line, a complete cavotricuspid isthmus block was diagnosed. Dopamine was administered at this point and all were able to induce some atypical flutters, no typical flutter was seen. The atrial flutter was self- terminating. No fibrillations were seen at this point. Before end of the case, the preexisting pacemaker was interrogated and found to be adequate order. The cardiac silhouette did not change p.m. post-ablation. CONCLUSION: 1. Successful cavotricuspid isthmus ablation. 2. Successful termination of atrial fibrillation with cardioversion and amiodarone injection. 3. Adequate pacemaker function. PLAN: Consider re-adding flecainide versus amiodarone. MTDD
--- NOTE | 2017-10-15 12:36 | EKG ---
Test Reason : PREOP Blood Pressure : / mmHG Vent. Rate : 061 BPM Atrial Rate : 250 BPM P-R Int : 000 ms QRS Dur : 172 ms QT Int : 492 ms P-R-T Axes : 000 -79 097 degrees QTc Int : 495 ms Electronic ventricular pacemaker Atrial fibrillation Abnormal ECG Confirmed by SIMIN CHAUDHARI ([id number]) on 10/15/2017 12:36:21 PM Referred By: JUAN Confirmed By:SIMIN CHAUDHARI
--- NOTE | 2017-10-15 12:53 | EKG ---
Test Reason : POST ABLATION Blood Pressure : / mmHG Vent. Rate : 060 BPM Atrial Rate : 060 BPM P-R Int : 000 ms QRS Dur : 096 ms QT Int : 450 ms P-R-T Axes : 000 050 264 degrees QTc Int : 450 ms Electronic atrial pacemaker Abnormal ECG Confirmed by SIMIN CHAUDHARI ([id number]) on 10/15/2017 12:53:32 PM Referred By: JUAN Confirmed By:SIMIN CHAUDHARI
== END 2017-10-14 18:10 | disposition home or self-care (01) ==
LOC: CCL 09:24
PROVIDERS: ATTEND Internal Medicine Cardiovascular Disease
DX: I48.0 Paroxysmal atrial fibrillation (principal); I48.92 Unspecified atrial flutter; R60.0 Localized edema; Z79.82 Long term (current) use of aspirin; Z79.899 Other long term (current) drug therapy; Z95.0 Presence of cardiac pacemaker
CPT/HCPCS: 76942; 85610; 85730; 92960; 93005 ×2; 93312; 93613; 93623; 93653; C1730 ×2; C1769; 36415; 93010; J0282; J1265; J1644; J2001; J2704

== ENCOUNTER 2017-10-23 14:50 | Outpatient (CLI) | payer MEDICARE, MEDICAID | END 2017-10-23 14:51 | disposition home or self-care (01) | LOC: BICRAD 14:50 | PROVIDERS: ATTEND Family Medicine | DX: M25.562 Pain in left knee (principal) ==

== ENCOUNTER 2017-12-12 10:22 | Outpatient (CLI) | payer MEDICARE, MEDICAID ==
--- NOTE | 2017-12-12 14:25 | CT ---
LUMBAR SPINE CT WITHOUT CONTRAST: HISTORY: Left-sided lumbar radiculopathy. Low back pain with pain radiating down the left leg x2 months. COMPARISON: None. TECHNIQUE: CT lumbar spine is performed without contrast. Reformatted images are submitted for interpretation. FINDINGS: There are five lumbar type vertebral bodies. Lumbar spine vertebral body height is maintained. Ther e is no fracture. There is vacuum disk phenomenon at L4-L5 and at L5-S1. Mild rightward curvature o f the lumbar spine centered at L2. There is 5.7 mm of anterolisthesis of L2 upon L3. There are dege nerative changes involving the posterior elements at L2-L3 and L3-L4 and, to a lesser extent, at L4-L 5. Symmetric attenuation of the psoas muscles. The visualized solid organs are unremarkable. Atheroscl erosis of the aorta is noted. Lumbar spine vertebral body height is maintained. There is no fracture. Limited evaluation of the contents of the central spinal canal and neural foramina due to technique. Hypodensities noted at the S1 and S2 levels may represent bilateral Tarlov cysts. T11-T12/T12-L1: No high grade central canal stenosis or high grade neural foraminal narrowing. L1-L2: Mild loss of disk space height. No significant central canal stenosis. The right neural for amen is patent. The left neural foramen is mildly narrowed. L2-L3: Generalized disk bulge, ligamentum flavum thickening, and facet hypertrophy result in severe central canal stenosis. Mild bilateral neural foraminal narrowing. L3-L4: Broad-based disk bulge, ligamentum flavum thickening, and facet hypertrophy result in moderat e central canal stenosis. Mild right and minimal left neural foraminal narrowing. L4-L5: Broad-based disk bulge, ligamentum flavum thickening, and facet hypertrophy result in moderat e to severe central canal stenosis. Moderate bilateral neural foraminal narrowing. L5-S1: Generalized disk bulge without high grade central canal stenosis. Moderate right and left ne ural foraminal narrowing. IMPRESSION: Degenerative disk disease of the lumbar spine, as above. There is severe central canal stenosis at L 2-L3, moderate central canal stenosis at L3-L4, and moderate to severe central canal stenosis at L4-L 5. Varying degrees of foraminal stenosis, as defined above. POS: [facility]
== END 2017-12-12 10:23 | disposition home or self-care (01) ==
LOC: CT 10:22
PROVIDERS: ATTEND Family Medicine
DX: M51.16 Intervertebral disc disorders with radiculopathy, lumbar region (principal); M48.061 Spinal stenosis, lumbar region without neurogenic claudication; M99.83 Other biomechanical lesions of lumbar region
CPT/HCPCS: 72131

== ENCOUNTER 2017-12-19 08:47 | Day surgery (SDC) | payer MEDICARE, MEDICAID ==
[2017-12-18 14:51] VITALS: BMI 30.5
[2017-12-19 10:46] LABS: INR-International Normal Ratio 3.6; PTT 55.4 SEC (22.9-36.1); Prothrombin Time 35.9 SEC (12.0-14.7)
[2017-12-19] MEDS ORDERED: PROPOFOL 200 MG/20 ML VIAL ONE (10:53)
--- NOTE | 2017-12-19 17:21 | PRG ---
DATE OF SERVICE: 12/19/2017 SUBJECTIVE: Ms. Rincon is here for cardioversion, but she seems to have already converted back to sinus rhythm. She seems to be feeling fine, occasional palpitation noted. Interrogate the pacemaker reprogram as necessary. OBJECTIVE: VITAL SIGNS: Blood pressure is 132/66, heart rate 61, respirations 16, oxygen saturation 98%. GENERAL: Alert and oriented woman, in no apparent distress. CHEST: Coarse no crackles. HEART: Sounds are regular to rate and rhythm. Pacemaker site is well healed. ABDOMEN: Benign. Bowel sounds positive. DATABASE: The patient's interrogation reveals a MRI compatible dual chamber pacemaker with battery longevity. Lead parameters are good. The patient has been in atrial fibrillation, but most recent fasting episode was in 12/17/2017. Ventricular rate control seems to have improved. There is a long SC is seen. EKG does reveal sinus rhythm prolonged AV conduction and intermittent AV block, Mobitz type 1 second degree AV block is noted. ASSESSMENT AND PLAN: Ms. Rincon is a pleasant 82-year-old woman with history of atrial arrhythmias, previously on flecainide and now switched to Multaq. It seems to be intermittently be effective for intermittent arrhythmia and gives her better rate control. Currently, she is in sinus rhythm; therefore cardioversion will be canceled. We will continue Multaq, also continue oral anticoagulation. Her pacemaker was reprogrammed adding atrial ATP therapies. SHAE
--- NOTE | 2017-12-23 10:04 | EKG ---
Test Reason : PREOP Blood Pressure : / mmHG Vent. Rate : 055 BPM Atrial Rate : 064 BPM P-R Int : 000 ms QRS Dur : 096 ms QT Int : 418 ms P-R-T Axes : 000 078 -56 degrees QTc Int : 399 ms Demand pacemaker; interpretation is based on intrinsic rhythm Atrial fibrillation with slow ventricular response with premature ventricular or aberrantly conducted complexes Abnormal ECG Probable loss of atrial capture, likely due to atrial fibrillation Nonspecific T wave abnormality has replaced inverted T waves in Lateral leads Confirmed by DR. Guzman IBRAHIM ([id number]) on 12/23/2017 10:03:12 AM Referred By: JUAN Confirmed By:DR. Guzman IBRAHIM
== END 2017-12-19 14:15 | disposition home or self-care (01) ==
LOC: CCL 08:47
PROVIDERS: ATTEND Internal Medicine Cardiovascular Disease
DX: I48.0 Paroxysmal atrial fibrillation (principal); I48.92 Unspecified atrial flutter; I49.5 Sick sinus syndrome; I10 Essential (primary) hypertension; Z85.3 Personal history of malignant neoplasm of breast; Z85.038 Personal history of other malignant neoplasm of large intestine; Z86.73 Personal history of transient ischemic attack (TIA), and cerebral infarction without residual deficits; Z79.01 Long term (current) use of anticoagulants; Z79.82 Long term (current) use of aspirin; Z79.899 Other long term (current) drug therapy; Z95.0 Presence of cardiac pacemaker; Z53.8 Procedure and treatment not carried out for other reasons
CPT/HCPCS: 85610; 85730; 93005; 93010; J2704

== ENCOUNTER 2017-12-31 16:35 | Inpatient (IN) | payer MEDICARE, MEDICAID ==
[2017-12-31 17:36] LABS: #Eosinphils 0.3 thou/uL (0.0-0.7); #Monocytes 0.6 thou/uL (0.11-0.59); #Neutrophils 4.6 thou/uL (1.40-6.50); %Basophils 0.5 % (0.0-1.0); %Eosinophils 5.1 % (0.0-10.0); %Lymphocytes 14.5 % (21.0-51.0); %Monocytes 9.2 % (0.0-10.0); %Neutrophils 70.7 % (42.0-75.0); Hemoglobin 14.3 g/dL (12.0-16.0); Mean Corpuscular HGB CONC 32.7 g/dL (32.0-36.0); Mean Platelet Volume 8.1 fL (7.4-10.4); Platelet Count 368 thou/uL (130-400); RBC Distribution Width 14.8 % (11.5-14.5); Red Blood Cell (RBC) Count 4.08 mill/uL (4.20-5.40); White Blood Cell (WBC) Count 6.6 thou/uL (4.8-10.8)
--- NOTE | 2017-12-31 17:38 | RAD ---
RADIOGRAPH CHEST 1 VIEW: HISTORY: 82-year-old female with dyspnea. FINDINGS: There is no air space density, pulmonary edema, or pneumothorax. The lateral costophrenic angles are sharp. There is a dual lead left subclavian pacemaker. IMPRESSION: 1. No acute pulmonary findings. 2. Pacemaker. shine moran POS: [facility]
[2017-12-31 17:43] LABS: Prothrombin Time 43.6 SEC (12.0-14.7)
[2017-12-31 17:44] LABS: PTT 67.6 SEC (22.9-36.1)
[2017-12-31 17:45] LABS: INR-International Normal Ratio 4.6
[2017-12-31 18:00] LABS: ALT (SGPT) 329 U/L (8-55); AST (SGOT) 282 U/L (5-34); Albumin 3.7 g/dL (3.4-4.8); Alkaline Phosphatase 448 U/L (40-150); Anion Gap 14 mmol/L (10-20); BUN (Urea Nitrogen) 22 mg/dL (9.8-20.1); Calc. Creatinine Clearance 0 mL/min (70-130); Calcium 9.2 mg/dL (7.8-10.44); Carbon Dioxide 27 mmol/L (23-31); Chloride 103 mmol/L (98-107); Estimated GFR-MDRD 38; Globulin 3.8 g/dL (2.4-3.5); Glucose 157 mg/dL (83-110); Potassium 3.9 mmol/L (3.5-5.1); Protein, Total 7.5 g/dL (6.0-8.3); Sodium 140 mmol/L (136-145)
[2017-12-31 18:03] LABS: CKMB 1.1 ng/mL (0-6.6); Troponin I Less than 0.010 ng/mL (< 0.028)
--- NOTE | 2017-12-31 19:34 | ULT ---
ULTRASOUND ABDOMEN LIMITED: (RIGHT UPPER QUADRANT) 12/31/17 at 6:44 p.m. HISTORY: 82-year-old female with abnormal LFTs. FINDINGS: The gallbladder wall thickness is 2 to 3 mm in thickness. A mobile gallstone is visualized in the bod y/fundus of the lumen. It measures approximately 7 mm in greatest dimension. There is questionable sl udge within the gallbladder. No pericholecystic edema or sonographic Cruz's sign. Common duct calib er is 5 mm. The left lobe of the liver is enlarged. Hepatic echogenicity and echotexture are diffusel y slightly heterogeneous and coarse. No surrounding free fluid. Nonspecific sonographic appearance to the pancreas. Incidental finding of atherosclerotic calcified irregularity of the domínguez of the abdom inal aorta with ectasia. No hydronephrosis of the right kidney. IMPRESSION: 1. Cholelithiasis. 2. Heterogeneous echogenicity and heterogeneous echotexture of the liver. This is nonspecific, a nd indicates diffuse hepatocellular disease. Consider further evaluation with multiphase CT of the ab domen with and without contrast, liver mass protocol, on an elective, outpatient basis. GURU Valdez POS: [facility]
[2017-12-31] MEDS ORDERED: Ondansetron HCl/PF 4 MG/2 ML Vial IVP PRN (20:35)
[2017-12-31] MEDS ORDERED: Acetaminophen 325 MG TAB PO PRN (20:35)
[2017-12-31 23:59] VITALS: BMI 28.5
[2018-01-01 05:32] LABS: #Basophils 0.1 thou/uL (0.0-0.2); #Eosinphils 0.4 thou/uL (0.0-0.7); #Monocytes 0.8 thou/uL (0.11-0.59); #Neutrophils 4.8 thou/uL (1.40-6.50); %Basophils 0.9 % (0.0-1.0); %Eosinophils 5.1 % (0.0-10.0); %Lymphocytes 14.4 % (21.0-51.0); %Monocytes 11.4 % (0.0-10.0); %Neutrophils 68.2 % (42.0-75.0); Hemoglobin 13.7 g/dL (12.0-16.0); Mean Corpuscular HGB CONC 32.9 g/dL (32.0-36.0); Mean Corpuscular Hemoglobin 35.3 pg (27.0-31.0); Mean Platelet Volume 8.2 fL (7.4-10.4); Platelet Count 328 thou/uL (130-400); RBC Distribution Width 14.9 % (11.5-14.5)
[2018-01-01 05:39] LABS: INR-International Normal Ratio 3.8; Prothrombin Time 37.5 SEC (12.0-14.7)
[2018-01-01 05:54] LABS: ALT (SGPT) 290 U/L (8-55); AST (SGOT) 217 U/L (5-34); Albumin 3.2 g/dL (3.4-4.8); Alkaline Phosphatase 423 U/L (40-150); Bilirubin, Total 1.7 mg/dL (0.2-1.2); Protein, Total 6.4 g/dL (6.0-8.3)
[2018-01-01 05:56] LABS: Anion Gap 12 mmol/L (10-20); BUN (Urea Nitrogen) 20 mg/dL (9.8-20.1); Calc. Creatinine Clearance 53 mL/min (70-130); Carbon Dioxide 25 mmol/L (23-31); Chloride 107 mmol/L (98-107); Estimated GFR-MDRD 55; Glucose 105 mg/dL (83-110); Potassium 3.6 mmol/L (3.5-5.1); Sodium 140 mmol/L (136-145)
[2018-01-01] MEDS ORDERED: Ondansetron ODT 4 MG TAB PO PRN (07:17)
[2018-01-01] MEDS ORDERED: Loratadine 10 MG TAB PO PRN (07:17)
[2018-01-01] MEDS ORDERED: Sodium Chloride 0.65% Nasal 44 ML BOT EA NARE PRN (07:17)
[2018-01-01] MEDS ORDERED: Milk Of Magnesia 30 ML UDCUP PO PRN (07:17)
[2018-01-01] MEDS ORDERED: Artificial Tears 18 DROP/0.9 ML EA EYE PRN (07:17)
[2018-01-01] MEDS ORDERED: Diabetic Tussin 200 MG/10 ML UDCUP PO PRN (07:17)
[2018-01-01] MEDS ORDERED: Temazepam 15 MG CAP PO PRN (07:17)
[2018-01-01] MEDS ORDERED: Chloraseptic Spray 180 ml Bottle PO PRN (07:17)
[2018-01-01] MEDS ORDERED: Mag-Al 1200 mg/1200 mg/30 ML UDCUP PO PRN (07:17)
[2018-01-01] MEDS ORDERED: Eucerin (Mineral Oil/Petrolatum,White) 30 gm Jar TOP PRN (07:17)
[2018-01-01] MEDS ORDERED: HYDROcodone/Acetaminophen 5/325 mg Tablet PO PRN (07:17)
[2018-01-01] MEDS ORDERED: Loperamide HCl 2 MG CAP PO PRN (07:17)
[2018-01-01] MEDS ORDERED: hydrALAZINE 20 MG/ML VIAL SLOW IVP PRN (07:17)
[2018-01-01] MEDS ORDERED: Carvedilol 6.25 MG TAB PO SCH (09:00)
[2018-01-01] MEDS ORDERED: Allopurinol 300 MG TAB PO SCH (09:00)
[2018-01-01] MEDS ORDERED: Dronedarone HCl 400 MG TAB PO SCH (09:00)
[2018-01-01] MEDS ORDERED: Aspirin 325 mg Enteric Coated Tablet PO SCH (09:00)
[2018-01-01] MEDS: Carvedilol 6.25 MG TAB PO SCH ×2 (09:14→20:27)
[2018-01-01] MEDS: cloNIDine 0.1 MG TAB PO SCH (09:14)
[2018-01-01] MEDS: Aspirin 81 mg Enteric Coated Tablet PO SCH (09:15)
[2018-01-01] MEDS: Potassium Chloride 20 MEQ TAB PO SCH (09:15)
[2018-01-01] MEDS: Letrozole 2.5 MG TAB PO SCH (09:15)
[2018-01-01] MEDS: Allopurinol 100 MG TAB PO SCH (09:15)
[2018-01-01] MEDS: Hydroxyurea 500 MG CAP PO SCH (09:15)
[2018-01-01] MEDS: Famotidine/PF 20 mg/2ml Vial SLOW IVP SCH ×2 (09:16→20:28)
--- NOTE | 2018-01-01 09:43 | HP ---
TIME OF EVALUATION: 7:55 p.m. PRIMARY CARE PHYSICIAN: Heidi Domingo MD CODE STATUS: FULL CODE. CHIEF COMPLAINT: Near syncope. HISTORY OF PRESENT ILLNESS: This is an 82-year-old female patient with past medical history positive for history of left-sided breast cancer treated with chemo and surgery, , arrhythmia, atrial fi brillation, hypertension, diverticulitis, came to the hospital after having an episode of near syncop e, with no clear triggers, no aggravating factors. As of note, the patient has had diarrhea for the past week. She has been getting weaker and weaker over the past few days; however, diarrhea has impr bart in the past 2 days. The patient had associated chest pain, shortness of breath, she also report ed that her pacemaker is not being working well, that she received interrogation past few days ago an d could not be completed and that she needed to go to [place] to complete interrogation. Symptoms are moderate to severe. REVIEW OF SYSTEMS: Constitutional: No fever, chills, or generalized weakness. Respiratory: No cou gh, sputum production, or shortness of breath. Cardiovascular: The patient has reportedly chest mireya n, no palpitation. Gastrointestinal: No nausea, no vomiting, diarrhea, or abdominal pain. Central Nervous Systems: The patient had near syncope episode and feeling lightheaded. Genitourinary: No b urning on urination. Extremities: No leg swelling. All other systems were negative except for the findings mentioned above. PAST MEDICAL HISTORY: As mentioned in the HPI. PAST SURGICAL HISTORY: Mastectomy in the left breast, cataract surgery, colon surgery, hernia repair . PSYCHIATRIC HISTORY: No previous psychiatric history. SOCIAL HISTORY: The patient drinks socially once a month. No drug use. No smoking history. FAMILY HISTORY: Noncontributory to this case and was reviewed. KNOWN ALLERGIES: No known drug allergies. REPORTED MEDICATIONS: Allopurinol, letrozole, potassium, furosemide, carvedilol, atorvastatin, hydro xyurea, aspirin, Multaq. PHYSICAL EXAMINATION: VITAL SIGNS: Blood pressure 119/70, respiratory rate was 18, temperature 98, pain 0/10, oxygen satur ation 98 on room air. GENERAL APPEARANCE: The patient is alert, oriented, not in any acute distress. HEENT: Eyes: Normal conjunctivae. Moist oral mucosa. Anicteric. NECK: No JVD. RESPIRATORY: Bilateral air entry. No rales, no wheezing. Symmetric expansion. CARDIOVASCULAR: Normal rate, regular rhythm. No murmurs, no gallops. EXTREMITIES: No edema. ABDOMEN: Soft, normal bowel sounds. MUSCULOSKELETAL: Baseline range of motion and strength. No tenderness. Peripheral pulses are prese nt. Capillary refill seems to be intact. SKIN: Warm and intact. No pallor, no rash, no redness. NEUROLOGIC: Baseline sensorium. No evidence of any new focal weakness. Speech is normal. Cranial nerves seem to be intact. PSYCHIATRIC: The patient is in good mood. No anxiety. Oriented, optimal judgment. EKG: Discussed with the performing physician from ER, the patient had paced rhythm with AV sequentia l dual chamber electronic pacer. RADIOLOGY INTERPRETATION: Abdominal ultrasound shows cholelithiasis. Chest x-ray showed no acute pu lmonary findings and the pacemaker. LABORATORY DATA: Reviewed. White count 6.6, hemoglobin 14.3, hematocrit 43.7, platelet count 368,00 0. Coagulation: PT 43.6, INR 4.6, PTT 67.6. Chemistry: Sodium 140, potassium 3.9, chloride 103, c arbon dioxide 27, anion gap 14, BUN 22, creatinine 1.34. It has been the same previous admissions. GFR 38, glucose 157, calcium 9.2, total bilirubin 2.0, AST 282, ALT 329, alkaline phosphate 448, trop onin was negative. Beta natriuretic peptide 553. ASSESSMENT AND PLAN: The patient will be placed in the hospital for other medical problem: 1. Near syncope. Unclear etiology. Initially thought that was related to diarrhea, dehydration, at was present for the past 2 weeks; however, the patient was reported to have low blood pressure wit h arrhythmias. We will monitor on tele, will do echo, will follow workup, may need cardiology evalua tion depending on findings. 2. Elevated liver function tests. Unclear etiology, may be infection. Dr. Hickman was called in e ER. We will see the patient. We will follow recommendations. 3. Supratherapeutic INR. INR 4.6, pharmacy to dose Coumadin. 4. Chronic kidney disease. This is chronic. Seems to be stable. 5. Hyperlipidemia. Reconcile home medication. Low-cholesterol diet is advised. 6. History of gout. Reconcile home medications. 7. History of atrial fibrillation. Reconcile home medications. Cardiology assistance with th is case. 8. Deep venous thrombosis prophylaxis. 9. Hyperglycemia. No history of diabetes. We will monitor. no need for any acute intervention at this point.
[2018-01-01 09:56] LABS: HBSAg Index 0.21 S/CO (0-0.99); Hep B Surf Ag Non-Reactive S/CO (NonReactive); Hep C IgG Ab Non-Reactive (NonReactive); Hep C Index 0.11 S/CO (0-0.79)
[2018-01-01 09:57] LABS: Hep A IgM AB Non-Reactive (NonReactive); Hep A IgM S/CO 0.14 S/CO (0-0.79)
[2018-01-01 09:58] LABS: HBCM Index 0.09 S/CO (0-0.79); Hepatitis B Core IGM Abs Non-Reactive (NonReactive)
--- NOTE | 2018-01-01 10:44 | PDOC.PN ---
- Subjective Encounter Start Date: 01/01/18 Encounter Start Time: 07:30 -: old records requested/rev pt had diarrhoea, mild RUQ tenderness , no vomiting, - Objective Resuscitation Status: Resuscitation Status FULL:Full Resuscitation MAR Reviewed: Yes Vital Signs & Weight: Vital Signs (12 hours) Temp Pulse Resp BP BP Pulse Ox 01/01/18 09:14 145/62 H 01/01/18 08:14 98.0 F 60 18 142/65 H 93 L 01/01/18 04:00 98.2 F 61 16 140/66 92 L 01/01/18 00:53 97.7 F 61 16 156/72 H 95 12/31/17 23:41 97.7 F 61 18 156/72 H 95 12/31/17 23:00 97.7 F 60 18 133/64 94 L Weight Weight 160 lb 12.8 oz I&O: 12/31/17 01/01/18 01/02/18 06:59 06:59 06:59 Intake Total 200 Output Total 230 Balance -30 Result Diagrams: 01/01/18 05:05 01/01/18 05:05 Radiology Reviewed by me: Yes (US RUQ noted) EKG Reviewed by me: Yes (pacing) Phys Exam - Physical Examination Constitutional: NAD HEENT: PERRLA, moist MMs, sclera anicteric Neck: no JVD, supple Respiratory: no wheezing, no rales, no rhonchi Cardiovascular: RRR, no significant murmur, no rub Gastrointestinal: soft, no distention, positive bowel sounds mild RUQ tenderness Musculoskeletal: no edema, pulses present Neurological: non-focal, normal sensation, moves all 4 limbs Psychiatric: normal affect, A&O x 3 Skin: no rash, normal turgor Dx/Plan (1) Abnormal LFTs Code(s): R94.5 - ABNORMAL RESULTS OF LIVER FUNCTION STUDIES Status: Acute (2) Cholelithiasis Code(s): K80.20 - CALCULUS OF GALLBLADDER W/O CHOLECYSTITIS W/O OBSTRUCTION Status: Acute (3) Diarrhea Code(s): R19.7 - DIARRHEA, UNSPECIFIED Status: Acute (4) Supratherapeutic INR Code(s): R79.1 - ABNORMAL COAGULATION PROFILE Status: Acute (5) Anticoagulant long-term use Code(s): Z79.01 - SENIOR LIVING (CURRENT) USE OF ANTICOAGULANTS Status: Chronic Comment: INR therapeutic. Continue home dose of Coumadin. Daily INR. (6) Chronic stage c diastolic heart failure Code(s): I50.32 - CHRONIC DIASTOLIC (CONGESTIVE) HEART FAILURE Status: Chronic (7) H/O malignant neoplasm of breast Code(s): Z85.3 - PERSONAL HISTORY OF MALIGNANT NEOPLASM OF BREAST Status: Chronic (8) HTN (hypertension) Code(s): I10 - ESSENTIAL (PRIMARY) HYPERTENSION Status: Chronic Qualifiers: Comment: Fairly well controlled. Continue home meds. (9) History of CVA (cerebrovascular accident) Code(s): Z86.73 - PRSNL HX OF TIA (TIA), AND CEREB INFRC W/O RESID DEFICITS Status: Chronic (10) Macrocytosis Code(s): D75.89 - OTHER SPECIFIED DISEASES OF BLOOD AND BLOOD-FORMING ORGANS Status: Chronic (11) Paroxysmal atrial fibrillation Code(s): I48.0 - PAROXYSMAL ATRIAL FIBRILLATION Status: Chronic - Plan cont current plan of care * she has cholilithesis and abnormal LFT, mild tenderness on deep palpation, DD choleycystitis vs medication related abnormal LFT * hepatitis profile negative * check stool study to rule out infection * GI consult * repeat labs tomorrow * selected home meds reconciled * medication reviewed as below * symptomatic treatment. Review of Systems - Review of Systems Constitutional: negative: fever, chills, sweats, weakness, malaise, other Eyes: negative: Pain, Vision Change, Conjunctivae Inflammation, Eyelid Inflammation, Redness, Other ENT: negative: Ear Pain, Ear Discharge, Nose Pain, Nose Discharge, Nose Congestion, Mouth Pain, Mouth Swelling, Throat Pain, Throat Swelling, Other Respiratory: negative: Cough, Dry, Shortness of Breath, Hemoptysis, SOB with Excertion, Pleuritic Pain, Sputum, Wheezing Cardiovascular: negative: chest pain, palpitations, orthopnea, paroxysmal nocturnal dyspnea, edema, light headedness, other Gastrointestinal: Nausea, Abdominal Pain, Diarrhea. negative: Vomiting, Constipation, Melena, Hematochezia, Other Genitourinary: negative: Dysuria, Frequency, Incontinence, Hematuria, Retention , Other Musculoskeletal: negative: Neck Pain, Shoulder Pain, Arm Pain, Back Pain, Hand Pain, Leg Pain, Foot Pain, Other Skin: negative: Rash, Lesions, Baltazar, Bruising, Other - Medications/Allergies Allergies/Adverse Reactions: Allergies Allergy/AdvReac Type Severity Reaction Status Date / Time No Known Allergies Allergy Verified 10/08/17 09:13 Medications: Current Medications Acetaminophen (Tylenol) 650 mg PO Q4H PRN PRN Reason: Headache/Fever or Pain Hydrocodone Bitart/Acetaminophen ([place] 5/325) 1 tab PO Q4H PRN PRN Reason: Moderate Pain (4-6) Al Hydroxide/Mg Hydroxide (Maalox) 15 ml PO Q4H PRN PRN Reason: Heartburn or Indigestion Allopurinol (Zyloprim) 100 mg PO QAM [facility] Last Admin: 01/01/18 09:15 Dose: 100 mg Artificial Tears (Tears Naturale) 0 drop EA EYE PRN PRN PRN Reason: Dry Eyes Aspirin (Ecotrin) 81 mg PO DAILY [facility] Last Admin: 01/01/18 09:15 Dose: 81 mg Carvedilol (Coreg) 6.25 mg PO BID [facility] Last Admin: 01/01/18 09:14 Dose: 6.25 mg Clonidine (Catapres) 0.1 mg PO DAILY [facility] Last Admin: 01/01/18 09:14 Dose: 0.1 mg Cyanocobalamin (Vitamin B-12) 1,000 mcg PO DAILY [facility] Digoxin (Lanoxin) 0.125 mg PO QPM [facility] Famotidine (Pepcid) 20 mg SLOW IVP Q12HR [facility] Last Admin: 01/01/18 09:16 Dose: 20 mg Folic Acid (Folvite) 1 mg PO DAILY [facility] Guaifenesin (Robitussin Sf) 200 mg PO Q4H PRN PRN Reason: Cough Hydralazine HCl (Apresoline) 10 mg SLOW IVP Q4H PRN PRN Reason: Systolic BP > 180 Hydroxyurea (Hydrea) 500 mg PO QAM [facility] Last Admin: 01/01/18 09:15 Dose: 500 mg Letrozole (Femara) [facility] Last Admin: 01/01/18 09:15 Dose: 2.5 mg Loperamide HCl (Imodium) 2 mg PO PRN PRN PRN Reason: Diarrhea/Loose Stools Loratadine (Claritin) 10 mg PO DAILYPRN PRN PRN Reason: Sinus Symptoms Magnesium Hydroxide (Milk Of Magnesium) 30 ml PO DAILYPRN PRN PRN Reason: Constipation Mineral Oil/White Petrolatum (Eucerin Cream) 0 gm TOP BIDPRN PRN PRN Reason: Dry Skin Miscellaneous Medication (Pharmacy To Dose) 1 each PO ASDIR JENNIFER Ondansetron HCl (Zofran) 4 mg IVP Q6H PRN PRN Reason: Nausea/Vomiting Ondansetron HCl (Zofran Odt) 4 mg PO Q6H PRN PRN Reason: Nausea/Vomiting Phenol (Chloraseptic [place] 180 Ml Bot) 0 ml PO PRN PRN PRN Reason: Sore Throat Potassium Chloride (K-Dur) 20 meq PO QAM [facility] Last Admin: 01/01/18 09:15 Dose: 20 meq Sodium Chloride ([place] Nasal [place] 0.65%) 0 ml EA NARE QIDPRN PRN PRN Reason: Nasal Congestion Sodium Chloride (Flush - Normal Saline) 10 ml IVF Q12HR [facility] Last Admin: 01/01/18 09:16 Dose: 10 ml Sodium Chloride (Flush - Normal Saline) 10 ml IVF PRN PRN PRN Reason: Saline Flush Temazepam (Restoril) 15 mg PO HSPRN PRN PRN Reason: Insomnia
--- NOTE | 2018-01-01 16:24 | CON ---
DATE OF CONSULTATION: 01/01/2018 REQUESTING PHYSICIAN: Dr. Jere Tinajero. REASON FOR CONSULTATION: Abnormal LFTs. HISTORY OF PRESENT ILLNESS: Ms. Karissa Rincon is a very pleasant 82-year-old woman with a significant past medical history of myeloproliferative disorder, left-sided breast cancer status post surgery and chemotherapy in 2014 with ongoing letrozole treatment, pulmonary embolus in 2014, on chronic Coumadi n therapy, atrial fibrillation, pacemaker placement, prior CVA with right carotid artery occlusion. I met her back in 11/2014, she had undergone a PET scan for staging of her breast cancer at that time and she had had positive findings at the hepatic flexure in the sigmoid colon. I performed a colono scopy in 11/2014, which showed tubulovillous adenomas in the ascending colon and the sigmoid colon, w jose miguelh were completely removed with a very large tubulovillous adenoma at the hepatic flexure, which wa s unresectable endoscopically. She saw Dr. Martinez and underwent right hemicolectomy and pathology e nded up being benign showing tubulovillous adenoma. She had not followed up with me since that time. The patient states that over about the past week, she was having some diarrhea with multiple loose st ools per day. No bleeding, no significant abdominal pain. She was feeling progressively weak over t he course of the week, even though the diarrhea seems to be improving the past couple of days. Yeste rday, she was having some near syncope and feeling like she was going to black out. She was seen by her primary care physician and was found to be tachycardic and was sent to the hospital for further e valuation. On evaluation, she was found to have a supratherapeutic INR and also some elevation in LF Ts. This appears to be new. Her LFTs were normal as of August of this year. Her only new medication s he can recall since then is Multaq. Today LFTs have trended down slightly. An abdominal ultrasound showed cholelithiasis and gallbladder sludge, but a normal common bile duct. There is some heterogen eity of the liver. The patient really denies any abdominal pain through this, she only has some mild tenderness to palpation in the right upper quadrant to deep palpation, but she has been tolerating h er diet with no spontaneous abdominal pain. She has had only one bowel movement today and stool stud ies have been ordered on that. REVIEW OF SYSTEMS: Full review of systems including constitutional, head, eyes, ears, nose, throat, GI, , cardiovascular, respiratory, musculoskeletal, and neurologic systems is negative except as no jeremiah in the HPI. PAST MEDICAL HISTORY: Multiple tubulovillous adenomas of the colon, status post right hemicolectomy in 2015, pulmonary embolus in 2015, myeloproliferative disorder, left-sided breast cancer, invasive d uctal carcinoma, status post surgery and chemotherapy in 2015, hyperlipidemia, hypertension, gout, CV A, right carotid artery occlusion, atrial fibrillation, pacemaker placement, GERD, DVT. ALLERGIES: No known drug allergies. OUTPATIENT MEDICATIONS: Allopurinol, letrozole, Lasix, Coreg, Lipitor, Coumadin, hydroxyurea, aspiri n, and Multaq. SOCIAL HISTORY: Alcohol use is rare. No smoking, no drug use. FAMILY HISTORY: Noncontributory. PHYSICAL EXAMINATION: VITAL SIGNS: Temperature is 97.8, pulse 62, blood pressure 146/68, and 94% oxygen saturation on room air. GENERAL: Elderly 82-year-old woman sitting up on the side of the bed comfortably, in no distress. SKIN: No jaundice, no rashes were palpable. EYES: No scleral icterus. Extraocular movements intact. ENT: Mucous membranes moist, no oral lesions. LYMPH: No submandibular, supraclavicular lymphadenopathy. THYROID: Nontender to palpation. HEART: Irregular rhythm. Pacemaker in place. LUNGS: Clear to auscultation bilaterally. ABDOMEN: Bowel sounds present. The abdomen is soft. Tenderness only to deep palpation in the right upper quadrant. No guarding or rebound tenderness. No masses or organomegaly appreciated. EXTREMITIES: No peripheral edema. VESSELS: Radial pulses 2+ bilaterally. LABORATORY STUDIES: WBC 7.0, hemoglobin 13.7, MCV 107.0, platelets 328. INR initially 4.6, now down to 3.8. Sodium 140, potassium 3.6, BUN 20, creatinine 0.98. Total bilirubin initially 2.0, now ariella n to 1.7. Direct bilirubin only 1.0. AST initially 282, now down to 217. ALT initially 329, now do wn to 290. Alkaline phosphatase initially 448, now down to 423. Troponin negative. BNP is elevated to 553.7. Albumin is 3.2. Viral hepatitis serologies are negative. IMAGING STUDIES: Chest x-ray showed pacemaker and no acute processes. Abdominal ultrasound showed c holelithiasis and some gallbladder sludge, but a normal caliber common bile duct of 5 mm. The liver is heterogeneous. ASSESSMENT AND PLAN: 1. Elevated liver function tests. This appears to be new since last labs in 08/2017, but unclear ho w acute this is. The patient is really not having any symptoms of biliary colic. Note, there is no evidence of common bile duct dilation on her abdominal ultrasound. I note the negative viral hepatit is serologies. Consider possible medication effect from the Multaq, also consider possibility of acu te passive hepatic congestion related to her presyncopal symptoms that were occurring yesterday. I w ill order some additional labs including autoimmune markers and iron studies, etc. I anticipate LFTs will gradually improve. We will plan to see her back in the GI clinic in 2-3 weeks, and at that sebastien e, we will recheck LFTs and also likely get CT imaging of the liver as recommended by the radiologist . 2. Acute diarrhea, improving. I viewed the patient's single bowel movement today, it is mostly chana d. Agree with sending it for examination for pathogens. Thank you for the consultation. I do think that if the patient is doing well tomorrow and LFTs have not significantly uptrended, that she could potentially be discharged from the hospital tomorrow from a GI standpoint.
--- NOTE | 2018-01-01 17:08 | EKG ---
Test Reason : Blood Pressure : / mmHG Vent. Rate : 080 BPM Atrial Rate : 076 BPM P-R Int : 000 ms QRS Dur : 158 ms QT Int : 454 ms P-R-T Axes : 000 -82 089 degrees QTc Int : 523 ms AV sequential or dual chamber electronic pacemaker Confirmed by DR. Luz Maria WRIGHT MD ([id number]) on 01/01/2018 5:07:53 PM Referred By: ER Confirmed By:DR. Luz Maria WRIGHT MD
[2018-01-01] MEDS: Digoxin 0.125 MG TAB PO SCH (20:27)
[2018-01-02 06:07] LABS: INR-International Normal Ratio 3.7; Prothrombin Time 36.7 SEC (12.0-14.7)
[2018-01-02 06:28] LABS: ALT (SGPT) 256 U/L (8-55); AST (SGOT) 158 U/L (5-34); Albumin 3.2 g/dL (3.4-4.8); Alkaline Phosphatase 443 U/L (40-150); Anion Gap 11 mmol/L (10-20); BUN (Urea Nitrogen) 20 mg/dL (9.8-20.1); Bilirubin, Direct 0.8 mg/dL (0.1-0.3); Bilirubin, Total 1.5 mg/dL (0.2-1.2); Calc. Creatinine Clearance 51 mL/min (70-130); Calcium 8.9 mg/dL (7.8-10.44); Carbon Dioxide 23 mmol/L (23-31); Chloride 106 mmol/L (98-107); Estimated GFR-MDRD 52; Globulin 3.1 g/dL (2.4-3.5); Glucose 122 mg/dL (83-110); Iron 57 ug/dL (50-170); Iron Binding Capacity, Total 165 mcg/dL (265-497); Potassium 3.8 mmol/L (3.5-5.1); Protein, Total 6.3 g/dL (6.0-8.3); Sodium 136 mmol/L (136-145)
[2018-01-02] MEDS: cloNIDine 0.1 MG TAB PO SCH (09:27)
[2018-01-02] MEDS: Aspirin 81 mg Enteric Coated Tablet PO SCH (09:27)
[2018-01-02] MEDS: Carvedilol 6.25 MG TAB PO SCH ×2 (09:28→20:08)
[2018-01-02] MEDS: Folic Acid 1 MG TAB PO SCH (09:28)
[2018-01-02] MEDS: Potassium Chloride 20 MEQ TAB PO SCH (09:28)
[2018-01-02] MEDS: Allopurinol 100 MG TAB PO SCH (09:28)
[2018-01-02] MEDS: Cyanocobalamin (Vitamin B-12) 1,000 MCG TAB PO SCH (09:28)
[2018-01-02] MEDS: Hydroxyurea 500 MG CAP PO SCH (09:28)
[2018-01-02] MEDS: Letrozole 2.5 MG TAB PO SCH (09:29)
[2018-01-02] MEDS: Famotidine/PF 20 mg/2ml Vial SLOW IVP SCH (09:29)
--- NOTE | 2018-01-02 19:00 | PRG ---
DATE OF SERVICE: 01/02/2018 SUBJECTIVE: Ms. Rincon is feeling well today. She denies any presyncopal symptoms. She denies any a bdominal pain or nausea. She has been tolerating a regular diet. Her diarrhea has also seemed to re solve. OBJECTIVE: VITAL SIGNS: Temperature 97.8, pulse 67, blood pressure 111/58, 96% oxygen saturation on room air. GENERAL: No acute distress. HEART: Regular rate and rhythm. LUNGS: Clear to auscultation bilaterally. ABDOMEN: Soft and nontender to palpation. EXTREMITIES: No peripheral edema. LABORATORY STUDIES: INR 3.7. Sodium 136, potassium 3.8, BUN 20, creatinine 1.02, glucose 122. Ferr itin is 468.64, iron 57, TIBC 165, lipase 142, albumin 3.2, total bilirubin down to 1.5, direct bilir ubin down to 0.8, alkaline phosphatase 443, AST down to 158, ALT down to 256. Viral hepatitis serolo gy is negative. Autoimmune markers pending. ASSESSMENT AND PLAN: 1. Elevated liver function tests, improving. 2. Acute diarrhea, appears to be resolving. 3. Cholelithiasis, appears likely to be an incidental finding. Transaminases have continued to fall . I do note the mild elevation in lipase, but clinically the patient does not have pancreatitis. St ill awaiting autoimmune markers, but those can be followed up on an outpatient basis. The patient's diarrhea also seems to have resolved. The patient is stable for discharge from a GI perspective in m y opinion. We will plan to see her back in clinic in 2-3 weeks with repeat LFTs. If LFTs remain lidia vated to about this degree, we could always consider MRCP imaging on an outpatient basis for better e valuation of the bile duct, but note that the bile duct was not dilated on admission ultrasound. GI will sign off, but please call any time with questions or concerns.
[2018-01-02] MEDS: Digoxin 0.125 MG TAB PO SCH (20:08)
[2018-01-02] MEDS: Famotidine 20 MG TAB PO SCH (20:09)
--- NOTE | 2018-01-02 20:39 | PDOC.PN ---
- Subjective Encounter Start Date: 01/02/18 Encounter Start Time: 09:45 Patient seen and examined for Abn LFTs. No diarrhea. No new complaints. No overnight events - Objective Resuscitation Status: Resuscitation Status FULL:Full Resuscitation MAR Reviewed: Yes Vital Signs & Weight: Vital Signs (12 hours) Temp Pulse Resp BP BP BP Pulse Ox 01/02/18 20:08 62 107/56 L 01/02/18 15:16 97.8 F 67 16 111/58 L 96 01/02/18 13:21 91/53 L 01/02/18 13:15 98 F 62 16 88/53 L 95 01/02/18 09:28 138/65 01/02/18 09:27 138/65 Weight Admit Weight 160 lb 12.8 oz Weight 160 lb 12.8 oz I&O: 01/01/18 01/02/18 01/03/18 06:59 06:59 06:59 Intake Total 200 960 820 Output Total 230 650 Balance -30 310 820 Result Diagrams: 01/01/18 05:05 01/02/18 05:15 EKG Reviewed by me: Yes (Tele SR/AF) Phys Exam - Physical Examination Constitutional: NAD Respiratory: no wheezing, no rhonchi Cardiovascular: RRR, no rub Gastrointestinal: soft, non-tender, no distention, positive bowel sounds Musculoskeletal: no edema Neurological: non-focal, moves all 4 limbs Psychiatric: A&O x 3 Dx/Plan - Plan IMPRESSION: 1. Near syncope/Acute diarrhea - improving 2. Abn LFTS - etio ? autoimmune marker pend 3. Supratherapeutic INR - improving, Warfarin on hold 4. Cholelithiases / HTN/ Chronic Afib / Other issues per previous notes PLAN: GI input appreciated LFTs in AM Warfarin on hold Cont to monitor DC planning in 24-48 hr if stable Review of Systems - Review of Systems Respiratory: negative: Cough, Dry, Shortness of Breath, Hemoptysis, SOB with Excertion, Pleuritic Pain, Sputum, Wheezing Cardiovascular: negative: chest pain, palpitations, orthopnea, paroxysmal nocturnal dyspnea, edema, light headedness, other - Medications/Allergies Allergies/Adverse Reactions: Allergies Allergy/AdvReac Type Severity Reaction Status Date / Time No Known Allergies Allergy Verified 10/08/17 09:13 Medications: Current Medications Al Hydroxide/Mg Hydroxide (Maalox) 15 ml PO Q4H PRN PRN Reason: Heartburn or Indigestion Allopurinol (Zyloprim) 100 mg PO QAM [facility] Last Admin: 01/02/18 09:28 Dose: 100 mg Artificial Tears (Tears Naturale) 0 drop EA EYE PRN PRN PRN Reason: Dry Eyes Aspirin (Ecotrin) 81 mg PO DAILY [facility] Last Admin: 01/02/18 09:27 Dose: 81 mg Carvedilol (Coreg) 6.25 mg PO BID [facility] Last Admin: 01/02/18 20:08 Dose: 6.25 mg Clonidine (Catapres) 0.1 mg PO DAILY [facility] Last Admin: 01/02/18 09:27 Dose: 0.1 mg Cyanocobalamin (Vitamin B-12) 1,000 mcg PO DAILY [facility] Last Admin: 01/02/18 09:28 Dose: 1,000 mcg Digoxin (Lanoxin) 0.125 mg PO QPM [facility] Last Admin: 01/02/18 20:08 Dose: 0.125 mg Famotidine (Pepcid) 20 mg PO BID [facility] Last Admin: 01/02/18 20:09 Dose: 20 mg Folic Acid (Folvite) 1 mg PO DAILY [facility] Last Admin: 01/02/18 09:28 Dose: 1 mg Guaifenesin (Robitussin Sf) 200 mg PO Q4H PRN PRN Reason: Cough Hydralazine HCl (Apresoline) 10 mg SLOW IVP Q4H PRN PRN Reason: Systolic BP > 180 Hydroxyurea (Hydrea) 500 [facility] [place] Last Admin: 01/02/18 09:28 Dose: 500 mg Letrozole (Femara) 2.5 mg [facility] [place] Last Admin: 01/02/18 09:29 Dose: 2.5 mg Loperamide HCl (Imodium) 2 mg PO PRN PRN PRN Reason: Diarrhea/Loose Stools Loratadine (Claritin) 10 mg PO DAILYPRN PRN PRN Reason: Sinus Symptoms Magnesium Hydroxide (Milk Of Magnesium) 30 ml PO DAILYPRN PRN PRN Reason: Constipation Mineral Oil/White Petrolatum (Eucerin Cream) 0 gm TOP BIDPRN PRN PRN Reason: Dry Skin Miscellaneous Medication (Pharmacy To Dose) 1 each PO .WARFARIN [facility] Ondansetron HCl (Zofran) 4 mg IVP Q6H PRN PRN Reason: Nausea/Vomiting Ondansetron HCl (Zofran Odt) 4 mg PO Q6H PRN PRN Reason: Nausea/Vomiting Phenol (Chloraseptic [place] 180 Ml Bot) 0 ml PO PRN PRN PRN Reason: Sore Throat Potassium Chloride (K-Dur) 20 meq PO QAM [facility] Last Admin: 01/02/18 09:28 Dose: 20 meq Sodium Chloride ([place] Nasal [place] 0.65%) 0 ml EA NARE QIDPRN PRN PRN Reason: Nasal Congestion Sodium Chloride (Flush - Normal Saline) 10 ml IVF Q12HR [facility] Last Admin: 01/02/18 20:09 Dose: 10 ml Sodium Chloride (Flush - Normal Saline) 10 ml IVF PRN PRN PRN Reason: Saline Flush Temazepam (Restoril) 15 mg PO HSPRN PRN PRN Reason: Insomnia
[2018-01-03 06:05] LABS: INR-International Normal Ratio 3.1
[2018-01-03 06:32] LABS: ALT (SGPT) 211 U/L (8-55); AST (SGOT) 104 U/L (5-34); Albumin 3.1 g/dL (3.4-4.8); Alkaline Phosphatase 447 U/L (40-150); Anion Gap 12 mmol/L (10-20); BUN (Urea Nitrogen) 18 mg/dL (9.8-20.1); Bilirubin, Total 1.3 mg/dL (0.2-1.2); Calc. Creatinine Clearance 56 mL/min (70-130); Calcium 8.9 mg/dL (7.8-10.44); Carbon Dioxide 24 mmol/L (23-31); Chloride 106 mmol/L (98-107); Estimated GFR-MDRD 57; Globulin 3.3 g/dL (2.4-3.5); Glucose 118 mg/dL (83-110); Protein, Total 6.4 g/dL (6.0-8.3); Sodium 138 mmol/L (136-145)
[2018-01-03] MEDS: Folic Acid 1 MG TAB PO SCH (09:20)
[2018-01-03] MEDS: Carvedilol 6.25 MG TAB PO SCH (09:20)
[2018-01-03] MEDS: Famotidine 20 MG TAB PO SCH (09:20)
[2018-01-03] MEDS: Hydroxyurea 500 MG CAP PO SCH (09:20)
[2018-01-03] MEDS: Cyanocobalamin (Vitamin B-12) 1,000 MCG TAB PO SCH (09:20)
[2018-01-03] MEDS: Allopurinol 100 MG TAB PO SCH (09:20)
[2018-01-03] MEDS: Aspirin 81 mg Enteric Coated Tablet PO SCH (09:21)
[2018-01-03] MEDS: Potassium Chloride 20 MEQ TAB PO SCH (09:21)
[2018-01-03] MEDS: cloNIDine 0.1 MG TAB PO SCH (09:21)
[2018-01-03] MEDS: Letrozole 2.5 MG TAB PO SCH (09:25)
--- NOTE | 2018-01-03 11:48 | PQF ---
CLINICAL DOCUMENTATION IMPROVEMENT CLARIFICATION FORM: ICD-10 Updated PLEASE DO AN ADDENDUM TO THE PROGRESS NOTE WITH ANY DOCUMENTATION UPDATES OR ADDITIONS AND CARRY THROUGH TO DC SUMMARY. THANK YOU. DATE: 01/03 ATTN: DR. FENG BRITO Please exercise your independent, professional judgment in responding to the clarification form. Clinical indicators are provided on the bottom of this form for your review. Please check appropriate box(s): [ ] Acute Renal Failure (ARF) / Acute Kidney Injury (ARELY) [ ] Other Etiology or underlying conditions related to the diagnosis of ARF/ ARELY: [ x ] Acute on Chronic Renal Failure please specify Stage of CKD __3__ (see below) [ ] CKD without ARF/ARELY please specify Stage of CKD [ ] Other diagnosis [ ] Unable to determine National Kidney Foundation Guidelines for CKD Staging Stage I Kidney damage with normal or increased GFR GFR > 90 Stage II Kidney damage with mildly decreased GFR GFR 60-89 Stage III Kidney damage with moderately decreased GFR GFR 30-59 Stage IV Kidney damage with severely decreased GFR GFR 16-29 Stage V Kidney failure GFR<15 ESRD End Stage Renal Disease On dialysis For continuity of documentation, please document condition throughout progress notes and discharge summary. Thank You. CLINICAL INDICATORS - SIGNS / SYMPTOMS / LABS BUN: 22 CR: 1.34 GFR: 38 (ADMIT, 12/31) 20 0.98 55 (01/01) 20 1.02 52 (01/02) 18 0.95 57 (01/03) PHYSICIAN H&P DOCUMENTATION 12/31: HX OF PRESENT ILLNESS: ... OF NOTE, THE PATIENT HAS HAD DIARRHEA FOR THE PAST WEEK. SHE HAS BEEN GETTING WEAKER & WEAKER OVER THE LAST FEW DAYS; HOWEVER, THE DIARRHEA HAS IMPROVED IN THE PAST 2 DAYS. ...LABORATORY DATA: ...BUN 22, CR 1.34, IT HAS BEEN THE SAME ON PREVIOUS ADMISSIONS, GFR 38 IMPRESSION/PLAN: 4) CHRONIC KIDNEY DISEASE. SEEMS TO BE STABLE RISK FACTORS: ACUTE DIARRHEA CHRONIC KIDNEY DISEASE TREATMENTS: SERIAL BASMET LABS 500 ML NS (IN ER, 12/31) THANK YOU! Diana (This form is maintained as a part of the permanent medical record) 2014 [employer]. All Rights Reserved Diana Ruiz [email or web address] Office: [phone] SHAE
[2018-01-03 13:10] VITALS: BP 118/68; TEMP 97.8
[2018-01-03 16:44] LABS: ANA Symphony (Qualitative) POSITIVE (Negative); CENP IgG Antibody 6.6 EliAU/mL (<7 Negative); EliA Vaculitis New Method **** NEW METHOD ****; Jo-1 IgG Antibody Less than 0.3 EliAU/mL (<7 Negative); RNP70 IgG Antibody Less than 0.3 EliAU/mL (<7 Negative); SSA/Ro IgG Antibody Greater than 240.0 EliAU/mL (<7 Negative); SSB/La IgG Antibody Less than 0.3 EliAU/mL (<7 Negative); Scleroderma-70 IgG Antibody 0.8 EliAU/mL (<7 Negative); dsDNA IgG Antibody 0.7 IU/mL (<10 Negative)
--- NOTE | 2018-01-03 20:18 | DIS ---
DATE OF DISCHARGE: 01/03/2018 DISCHARGE DISPOSITION: Home. FOLLOWUP: 1. Follow up with Dr. Domingo in 1 week. 2. Follow up with GI Clinic, Dr. Kevin Krishnamurthy in 2-3 weeks. 3. The patient will follow up with Coumadin Clinic tomorrow for a PT/INR. She would also require an LFT after 1-2 weeks. 4. Lipitor will be held due to abnormal liver function tests. The patient was seen and examined on the day of discharge. Denies any new complaints, no chest pain, shortness of breath, palpitations. DISCHARGE MEDICATIONS: As same as admission medications. No changes were made. BRIEF HOSPITAL COURSE: The patient is an 82-year-old female with chronic atrial fibrillation on anti coagulation, hypertension, and diverticulosis, presented to the emergency room with near syncope. Sh gene recently had diarrhea. Please refer to the history and physical dated 12/31/2017 for further detai ls. The patient was admitted to the hospital with a diagnosis of near syncope in the setting of acute troy rrhea. She was found to have abnormal LFTs with total bilirubin of 2.0, AST of 282, ALT of 329, yadiel line phosphorus of 448. She was also found to have an acute kidney injury with creatinine 1.34 with BUN 22. Our hepatitis profile was negative. Stool for Campylobacter and culture remained negative. She was seen by Gastroenterology, Dr. Krishnamurthy. Dr. Krishnamurthy has ordered autoimmune panel which is pending at this time. Diarrhea has completely resolved. Right upper quadrant ultrasound showed a common graham t diameter of 5 mm with questionable sludge within the gallbladder. Cruz sign was negative. They were mobile gallstones seen in the lumen. Her LFTs improved with conservative measures. Statins are currently on hold. She has been cleared by Gastroenterology for discharge. FINAL DIAGNOSES: 1. Near syncope, probably secondary to dehydration. 2. Acute diarrhea of unclear etiology, resolved. 3. Abnormal liver function tests of unclear etiology, improving. Autoimmune panel pending at this t pancho. Primary care physician advised to follow. 4. Supratherapeutic INR. INR on the day of discharge is 3.1. On admission was 4.6. She will follo w up with Coumadin Clinic tomorrow. 5. Acute kidney injury on chronic kidney disease stage 3. 6. Hyperlipidemia. 7. Gout. 8. Chronic atrial fibrillation on anticoagulation. 9. Dehydration. 10. Cholelithiasis. 11. Macrocytosis. Primary care physician advised to follow. 12. Mild protein calorie malnutrition. 13. Elevated BNP of 554. Patient will benefit from a cardiology evaluation as outpatient. Echocard iogram in the past showed normal left ventricular ejection fraction of 55%-60%. TESTS PENDING AT DISCHARGE: 1. Autoimmune panel. 2. Smooth muscle total antibody. 3. Plan of care was discussed with the patient in detail. She stated understanding.
== END 2018-01-03 13:51 | disposition home or self-care (01) | DRG 641 ==
LOC: ERS 16:35 → T4-B 22:49 → INTOOBSV 22:49 → 2NO 23:56 → OBSVTOIN 01-01 12:34
PROVIDERS: ADMIT Hospitalist; ATTEND Hospitalist
DX: E86.0 Dehydration (principal); N17.9 Acute kidney failure, unspecified; E44.1 Mild protein-calorie malnutrition; Z85.3 Personal history of malignant neoplasm of breast; I12.9 Hypertensive chronic kidney disease with stage 1 through stage 4 chronic kidney disease, or unspecified chronic kidney disease; E78.5 Hyperlipidemia, unspecified; R73.9 Hyperglycemia, unspecified; K80.20 Calculus of gallbladder without cholecystitis without obstruction; I48.2 Chronic atrial fibrillation; Z79.01 Long term (current) use of anticoagulants; R19.7 Diarrhea, unspecified; N18.3 Chronic kidney disease, stage 3 (moderate); M10.9 Gout, unspecified; D75.89 Other specified diseases of blood and blood-forming organs; Z86.711 Personal history of pulmonary embolism; Z95.0 Presence of cardiac pacemaker; Z86.73 Personal history of transient ischemic attack (TIA), and cerebral infarction without residual deficits; K21.9 Gastro-esophageal reflux disease without esophagitis; Z86.718 Personal history of other venous thrombosis and embolism
CPT/HCPCS: 36415; 71045; 76705; 80048; 80053; 80074; 80076; 82553; 82728; 83516; 83540; 83550; 83690; 83880; 84484; 85025; 85610; 85730; 86038; 86225; 86235; 87045; 87046; 87328; 87329; 87449; 87899; 93005; 96360; A4216; S0028

== ENCOUNTER 2018-01-08 11:31 | Inpatient (IN) | payer MEDICARE, MEDICAID ==
[2018-01-08 12:07] LABS: #Basophils 0.1 thou/uL (0.0-0.2); #Eosinphils 0.6 thou/uL (0.0-0.7); #Lymphocytes 0.9 thou/uL (1.20-3.40); #Monocytes 0.6 thou/uL (0.11-0.59); #Neutrophils 7.3 thou/uL (1.40-6.50); %Basophils 1.5 % (0.0-1.0); %Lymphocytes 9.7 % (21.0-51.0); %Monocytes 5.9 % (0.0-10.0); %Neutrophils 76.9 % (42.0-75.0); Hemoglobin 14.5 g/dL (12.0-16.0); Mean Corpuscular HGB CONC 33.1 g/dL (32.0-36.0); Mean Corpuscular Hemoglobin 35.6 pg (27.0-31.0); Mean Platelet Volume 8.1 fL (7.4-10.4); Platelet Count 432 thou/uL (130-400); RBC Distribution Width 15.3 % (11.5-14.5); Red Blood Cell (RBC) Count 4.08 mill/uL (4.20-5.40); White Blood Cell (WBC) Count 9.5 thou/uL (4.8-10.8)
[2018-01-08 12:31] LABS: ALT (SGPT) 279 U/L (8-55); AST (SGOT) 173 U/L (5-34); Albumin 3.8 g/dL (3.4-4.8); Alkaline Phosphatase 753 U/L (40-150); Anion Gap 15 mmol/L (10-20); BUN (Urea Nitrogen) 18 mg/dL (9.8-20.1); Bilirubin, Total 2.8 mg/dL (0.2-1.2); CK (CPK) 15 U/L (29-168); Calc. Creatinine Clearance 0 mL/min (70-130); Calcium 9.8 mg/dL (7.8-10.44); Carbon Dioxide 22 mmol/L (23-31); Chloride 102 mmol/L (98-107); Estimated GFR-MDRD 38; Glucose 256 mg/dL (83-110); Potassium 4.4 mmol/L (3.5-5.1); Protein, Total 7.8 g/dL (6.0-8.3); Sodium 135 mmol/L (136-145)
[2018-01-08 12:37] LABS: CKMB 0.7 ng/mL (0-6.6); Troponin I Less than 0.010 ng/mL (< 0.028)
--- NOTE | 2018-01-08 12:46 | RAD ---
CHEST PAIN: Comparison: 12-31-17 FINDINGS: Heart size is enlarged. No pneumothorax. No effusion. IMPRESSION: Mild cardiomegaly. POS: ROSANGELA
[2018-01-08] MEDS ORDERED: ISOVUE-370 76%-LOCM 1 ML ONE (12:50)
[2018-01-08 12:56] LABS: INR-International Normal Ratio 1.6; Prothrombin Time 19.3 SEC (12.0-14.7)
--- NOTE | 2018-01-08 14:19 | CT ---
CT OF THE ABDOMEN AND PELVIS WITH AND WITHOUT IV CONTRAST 01/08/18 INDICATION: History of liver mass, chest pain, shortness of breath, generalized weakness, and pain radiating into the patient's back. COMPARISON: Right upper quadrant ultrasound dated 12/31/[address] of the abdomen and pelvis dated 04/09/14. FINDINGS: There is a small gallstone within the gallbladder. No focal hepatic lesion is identified. No suspicio us arterial enhancing lesion is noted. No intrahepatic biliary ductal dilatation is noted. The visualized pancreas, adrenal glands, and left kidney are normal appearing. There is a 1.5 cm right renal cyst. There are moderate calcifications involving the abdominal and pelvic vasculature. There has been interval performance of a right hemicolectomy and establishment of enterocolonic anast omosis within the right upper quadrant of the abdomen. The small bowel is of normal caliber. No free fluid or enlarged lymph nodes are evident. The bladder, rectum perirectal soft tissues are unremarkab le appearing. There is diffuse osteopenia. There is scattered degenerative and osteoarthritic change. IMPRESSION: 1. No suspicious focal hepatic lesion is evident. 2. Cholelithiasis. 3. Right renal cyst. 4. Right hemicolectomy. 5. Other chronic findings. POS: C
[2018-01-08 15:31] LABS: Troponin I Less than 0.010 ng/mL (< 0.028)
[2018-01-08] MEDS ORDERED: Bisacodyl 5 MG TAB PO PRN (17:12)
--- NOTE | 2018-01-08 17:57 | HP ---
PRIMARY CARE PHYSICIAN: Heidi Domingo MD CHIEF COMPLAINT: Chest pain. HISTORY OF PRESENT ILLNESS: Ms. Rincon is a pleasant 82-year-old lady, who was seen at [facility] on 01/08/2018. She was hospitalized at this facility from 01/01/2018 to 01/04/20 18 for her near syncope, acute diarrhea, and abnormal liver function tests, as well as supratherapeut ic INR. Following discharge from the hospital, she was seen at her primary care physician's office earlier to day. There, she reported chest pain. She describes it as retrosternal, tightness-like sensation, ra diating to back, 5/10 at its worst, constant, no known aggravating or relieving factors, accompanied by shortness of breath, but not by nausea or fevers. Because of the above symptoms, she was sent to the emergency room. She denies any abdominal pain. The patient's daughter reports that the patient was started on Multaq around 12/12/2017 and has been feeling unwell after approximately a week later. REVIEW OF SYSTEMS: All other systems reviewed and found to be negative. PAST MEDICAL HISTORY: Left-sided breast cancer treated with chemotherapy and surgery, atrial fibrill ation, hypertension, diverticulitis, abnormal liver function tests. PAST SURGICAL HISTORY: Left mastectomy, cataract surgery, colon surgery, hernia repair, and pacemake r placement. SOCIAL HISTORY: Rare alcohol use. No tobacco or recreational drug use. FAMILY HISTORY: Significant for colon cancer, brother with head and neck cancer, and prostate cancer in her brother. CODE STATUS: I discussed her code status. She is DNR. ALLERGIES: No known drug allergies. CURRENT MEDICATIONS: Allopurinol 300 mg daily; letrozole 2.5 mg daily; potassium 20 mEq daily; furos emide 40 mg daily; carvedilol 6.25 mg two times a day; atorvastatin, on hold at this time because of abnormal LFTs; hydroxyurea 500 mg daily; aspirin 81 mg daily; and Multaq 400 mg two times a day. PHYSICAL EXAMINATION: GENERAL: Ms. Rincon is awake and alert, not in acute distress. VITAL SIGNS: Blood pressure is 122/61, pulse 61, respiratory rate 17, and oxygen saturation 97% on r oom air. She is afebrile. EYES: She has scleral icterus. No conjunctival pallor. ENT: Moist mucosal membranes. No oropharyngeal erythema or exudates. NECK: Supple, nontender. Trachea is midline. RESPIRATORY: Accessory muscles of breathing are not active. Chest wall movements are symmetric bila terally. LUNGS: Clear to auscultation without wheeze, rhonchi, or crepitations. CARDIOVASCULAR: S1 and S2 are heard, regular. Peripheral pulses are palpable. No carotid bruit, no pericardial rub. ABDOMEN: Soft, nontender. Bowel sounds heard. No hepatomegaly, no splenomegaly. NEUROLOGIC: Cranial nerves II-XII intact. Deep tendon reflexes are 2+. MUSCULOSKELETAL: Power is 5/5 in all 4 extremities. SKIN: No rashes or subcutaneous nodules. She has bilateral lower extremity edema. LYMPHATIC: No cervical lymphadenopathy. PSYCHIATRIC: Normal mood, normal affect. The patient is oriented to person, place, and time. LABORATORY DATA: Ms. Rincon' labs and investigations were reviewed. I reviewed her electrocardiogram , which shows demand electronic paced rhythm, anterolateral T-wave inversions in beats with intrinsic rhythm. I also reviewed her chest x-ray, which does not show any pulmonary infiltrates. She has mi ld cardiomegaly. She also had a CT scan of the abdomen and pelvis with and without IV contrast, whic h did not show any suspicious focal hepatic lesion. She has cholelithiasis, right renal cyst, and ri ght hemicolectomy. She has normal white count, normal hemoglobin, elevated platelet count of 432,000 , INR 1.6. Sodium slightly decreased at 135. Carbon dioxide slightly decreased at 22. Normal anion gap of 15. Elevated creatinine of 1.33, it was 0.95 on 01/03/2018. Elevated total bilirubin of 2.8 , it was 1.3 on 01/03/2018. Elevated AST of 173, which was 104 on 01/03/2018. Elevated ALT of 279, which was 211 on 01/03/2018. Elevated alkaline phosphatase of 753, up from 447 on 01/03/2018. BNP i s elevated at 527. Troponin I is negative x2. Lipase is elevated at 186. ASSESSMENT AND PLAN: Ms. Rincon is a pleasant 82-year-old lady who was seen at [facility] on 01/08/2018. Her problem list includes: 1. Chest pain: She will be admitted to the hospital for further management. I will consult Cardiol ogy Service for opinion and help with management. She will be monitored on telemetry. Her troponin level will be rechecked. She appears to be clinically improving at this time. 2. Abnormal liver function tests. She had a pending autoimmune panel at the time of her last discha rge. She is positive for CELSO, IgG, and SS-A/Ro IgG antibody. At this point in time, the etiology of her hepatitis is unclear. It could be immune mediated. Also, she was recently started on Multaq. We will consult Electrophysiology Service for opinion and help with management. We will also consult Gastroenterology Service. 3. Hypertension: We will continue antihypertensives, monitor vital signs, and titrate antihypertens niyah as needed. 4. Dyslipidemia: We will continue to hold statin for now. 5. History of atrial fibrillation. We will request pharmacy to manage her warfarin dosing. Many thanks for allowing me to participate in your patient's care. Please feel free to contact me wi th any questions or concerns. LEVEL OF RISK: High. LEVEL OF COMPLEXITY: High.
[2018-01-08] MEDS: Warfarin Sodium 2.5 MG TAB PO SCH (18:19)
[2018-01-08 18:23] LABS: Troponin I Less than 0.010 ng/mL (< 0.028)
--- NOTE | 2018-01-08 20:53 | CON ---
DATE OF CONSULTATION: 01/08/2018 REASON FOR CONSULTATION: Shortness of breath. HISTORY OF PRESENT ILLNESS: Ms. Rincon is a pleasant 82-year-old woman who is a patient of Dr. Carlos A swanson. She recently presented with shortness of breath. She had a similar episode one week ago. She states her problems began after switching from flecainide to Multaq. The episode was acute in onset. Last episode was this morning. No chest pain, pressure noted. No other present. PAST MEDICAL HISTORY: Paroxysmal atrial fibrillation, hypertension, hyperlipidemia, cataract surgery , left carotid endarterectomy, nonsustained VT, stage III breast cancer, colon surgery, mastectomy, p revious CVA. ALLERGIES: None. HOME MEDICATIONS: Include aspirin, Coumadin, atorvastatin, letrozole, hydroxyurea, digoxin, potassiu m, Lasix, carvedilol, allopurinol, and Multaq. REVIEW OF SYSTEMS: Ten-point review of systems is reviewed as above, otherwise negative. PHYSICAL EXAMINATION: GENERAL: Patient is a pleasant female who is in no acute distress. The patient appears her stated age. VITAL SIGNS: Blood pressure 130/65, pulse 60, temperature 97.9. NEUROLOGIC: The patient is alert and oriented times 3 with no focal neurologic deficits. HEENT: Sclerae without icterus. Mouth has moist mucous membranes with normal pallor. NECK: No JVD. Carotid upstroke brisk. No bruits bilaterally. LUNGS: Clear to auscultation with unlabored respirations. BACK: No scoliosis or kyphosis. CARDIAC: Regular rate and rhythm with normal S1 and S2. No S3 or S4 noted. No significant rubs, murmurs, thrills, or gallops noted throughout the precordium. PMI is not displa morales. There is no parasternal heave. ABDOMEN: Soft, nontender, nondistended. No peritoneal signs present. No hepatosplenomegaly. No ab normal striae. EXTREMITIES: 2+ femoral and 2+ dorsalis pedis pulses. No cyanosis, clubbing, or edema. SKIN: No gross abnormalities. PERTINENT LABS: CK troponin negative. Hemoglobin 14.5, platelet count 434, creatinine 1.3, sodium 1 35, AST, ALT of 173 and 279. IMPRESSION: 1. Shortness of breath. 2. Atrial fibrillation. 3. Status post pacemaker. RECOMMENDATIONS: At this point, I would recommend a noninvasive stress study. She has not had any n oninvasive stress study performed in the last several years. This may be her anginal equivalent. Ma y also reveal diastolic dysfunction. She points to Multaq as the culprit. May consider stopping Mul taq and change back to flecainide or .
--- NOTE | 2018-01-09 00:09 | CON ---
DATE OF CONSULTATION: 01/08/2018 REASON FOR CONSULTATION: Elevation of liver profile. HISTORY: Ms. Rincon is an 82-year-old female who was admitted today with a 2- week history of having intermittent chest pain. Her chest pain is described as a pressure sensation with occasional radiation to the back, often associated with shortness of breath, but without any nausea or vomiting. Today's episode was quite severe, which prompted ER visit and subsequent admission. She denies having abdominal pain. There is no nausea or vomiting. She has had diarrhea the last admission, but that seems to have resolved. There is no evidence of GI bleeding such as melena, hematochezia, or rectal bleeding. On admission, she was noted to have elevation of her ALT and AST in the 100-200 range that has been persistent since her last admission a week and a half ago. Her bilirubin is also elevated in the 2 mg/dL range. Her alkaline phosphatase has also been elevated between 400-700. She does have known gallstones based on ultrasound a week ago. At that time, her common bile duct was normal at 5 mm. Currently, she feels fine without any symptoms. She denies having any dark urine or any acholic stools. She denies having had any jaundice, confirmed by her daughter. PAST MEDICAL HISTORY: 1. Myeloproliferative disorder. 2. Breast cancer, status post left mastectomy and chemotherapy. 3. 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 4. Hypertension. 5. Hyperlipidemia. 6. History of cerebrovascular accident. 7. Atrial fibrillation. 8. Chronic gastroesophageal reflux. 9. Prior history of DVT. ALLERGIES: None. HOME MEDICATIONS: Include clonidine, Coumadin, letrozole, hydroxyurea, Multaq, digoxin, Coreg, aspirin, and allopurinol. SOCIAL HISTORY: The patient denies any alcohol consumption. No tobacco usage. FAMILY HISTORY: Negative for any known GI problem, liver disease, or GI malignancy. REVIEW OF SYSTEMS: Ten-point review of systems did not show any other pertinent positive or negative, not mentioned in the HPI. PHYSICAL EXAMINATION: VITAL SIGNS: Temperature is 97.9, blood pressure 138/65, pulse is 63. GENERAL: She is alert, conversant, does not appear in any distress. HEENT: Shows anicteric sclerae. Oropharynx clear. NECK: Supple. CARDIOVASCULAR: Shows normal S1, S2. Regular rate and rhythm. CHEST: Shows breath sounds. ABDOMEN: Soft. Mildly protuberant, nontender. No palpable mass or organomegaly. Liver edge not palpable. She has active bowel sounds. EXTREMITIES: Shows no edema. LABORATORY DATA: WBC is 9.5, hemoglobin 14.5, platelet count of 432,000. Sodium 135, potassium 4.4, chloride 102, CO2 of 22, creatinine 1.3, bilirubin 2.8, AST 173, ALT of 279, alkaline phosphatase 753. Her BNP is 527, lipase is 186. Labs from last visit 2 weeks ago, showed negative hepatitis viral serology for A, B, and C, CELSO positive, negative Reese antibody, negative mitochondrial antibody, negative smooth muscle antibody, ferritin is 468. IMAGING: Abdominal pelvic CT performed today redemonstrate cholelithiasis, otherwise no other significant or specific finding. ASSESSMENT: 1. Elevation in liver profile. Serology from last visit does show positive CELSO , but negative smooth muscle and mitochondrial antibody and negative hepatitis viral serology for A, B, and C. Patient was recently started on Multaq, which raises possibility of a medication side effect. However, other potential cause could be passive congestion of the liver from right heart failure and even less likely biliary tract disease such as choledocholithiasis (common bile duct was 5 mm last week and today CT did not show any evidence of biliary dilation). 2. Chest pain, undergoing cardiology evaluation with nuclear medicine stress test tomorrow. 3. History of myeloproliferative disorder. 4. History of breast cancer. 5. Atrial fibrillation. RECOMMENDATIONS: 1. We will await cardiac evaluation for any coronary artery disease and also to assess for any evidence of right heart failure. 2. Will consider MRCP if there is no supporting evidence for heart failure as a cause of liver congestion to evaluate for any choledocholithiasis, given concurrent elevation of bilirubin and alkaline phosphatase on her liver profile. We will wait on this after she finished her cardiac stress test tomorrow. [facility]
[2018-01-09 05:35] LABS: #Basophils 0.1 thou/uL (0.0-0.2); #Eosinphils 0.7 thou/uL (0.0-0.7); #Lymphocytes 1.1 thou/uL (1.20-3.40); #Monocytes 0.9 thou/uL (0.11-0.59); #Neutrophils 5.5 thou/uL (1.40-6.50); %Basophils 1.5 % (0.0-1.0); %Eosinophils 8.4 % (0.0-10.0); %Lymphocytes 12.8 % (21.0-51.0); %Monocytes 11.3 % (0.0-10.0); %Neutrophils 66.1 % (42.0-75.0); Hemoglobin 13.5 g/dL (12.0-16.0); Mean Corpuscular HGB CONC 33.2 g/dL (32.0-36.0); Mean Corpuscular Hemoglobin 35.8 pg (27.0-31.0); Mean Platelet Volume 8.3 fL (7.4-10.4); Platelet Count 402 thou/uL (130-400); RBC Distribution Width 15.3 % (11.5-14.5); Red Blood Cell (RBC) Count 3.78 mill/uL (4.20-5.40); White Blood Cell (WBC) Count 8.4 thou/uL (4.8-10.8)
[2018-01-09 05:51] LABS: ALT (SGPT) 230 U/L (8-55); AST (SGOT) 131 U/L (5-34); Albumin 3.3 g/dL (3.4-4.8); Alkaline Phosphatase 662 U/L (40-150); Anion Gap 10 mmol/L (10-20); BUN (Urea Nitrogen) 18 mg/dL (9.8-20.1); Calc. Creatinine Clearance 51 mL/min (70-130); Calcium 9.3 mg/dL (7.8-10.44); Carbon Dioxide 24 mmol/L (23-31); Chloride 105 mmol/L (98-107); Estimated GFR-MDRD 53; Globulin 3.4 g/dL (2.4-3.5); Glucose 139 mg/dL (83-110); Potassium 4.2 mmol/L (3.5-5.1); Protein, Total 6.7 g/dL (6.0-8.3); Sodium 135 mmol/L (136-145)
[2018-01-09] MEDS ORDERED: Carvedilol 6.25 MG TAB PO SCH (09:00)
--- NOTE | 2018-01-09 10:36 | PRG ---
DATE OF SERVICE: 01/09/2018 SUBJECTIVE: Mrs. Rincon was out of the room during my rounds today, so I was unable to speak with her or examine her. She is down on her nuclear medicine stress test. I reviewed labs as well as Dr. Sary zimmer's a consultation from yesterday. LABORATORY STUDIES: Include continued elevation of LFTs with total bilirubin 2.0, alkaline phosphata se 662, AST 131, ALT 230, elevated BNP to 527.5. Negative troponin. INR 1.6. WBC 8.4, hemoglobin 1 3.5, platelets 402. As of my consultation a couple of weeks ago and Dr. Walker's examination yesterday, the patient was not having any symptoms referable to the gallbladder, no symptoms suggestive of biliary colic. My impression remains that her continued LFT elevation is likely secondary to passive hepatic congest ion from her heart failure. Cardiac workup is ongoing. We will follow along results of that workup. If it appears that she does not have any evidence of right heart failure, then I would agree that w e should perform MRCP later this admission, just to more definitively rule out any biliary pathology. Note that recent abdominal ultrasound showed no common bile duct dilation.
[2018-01-09] MEDS ORDERED: Regadenoson 0.4 MG/5 ML SYRINGE ONE (12:24)
[2018-01-09] MEDS ORDERED: ISOVUE-370 76%-LOCM 1 ML ONE (12:34)
[2018-01-09] MEDS: Letrozole 2.5 MG TAB PO SCH (13:26)
[2018-01-09] MEDS: Aspirin 81 mg Enteric Coated Tablet PO SCH (13:27)
[2018-01-09] MEDS: cloNIDine 0.1 MG TAB PO SCH (13:28)
[2018-01-09] MEDS: Hydroxyurea 500 MG CAP PO SCH (13:29)
[2018-01-09] MEDS: Allopurinol 100 MG TAB PO SCH (13:29)
--- NOTE | 2018-01-09 14:02 | NM ---
MYOCARDIAL PERFUSION SCAN: DATE: 01/09/2018. PROVIDED CLINICAL HISTORY: Shortness of breath and hypertension. RADIOPHARMACEUTICAL: 28.3 mCi Technetium 99m labeled sestamibi IV stress. 10.5 mCi Technetium 99m labeled sestamibi IV rest. FINDINGS: There is moderate area of mildly diminished radiotracer activity involving the basal to mid inferolat eral wall. This demonstrates no reversibility. This improves on the attenuation corrected images an d demonstrates normal wall motion. Otherwise, normal distribution of the radiotracer throughout the left ventricular myocardium at both stress and stress. Gated data demonstrate normal myocardial wall motion and thickening with calculated LEVF of 73%. TID is 0.98. IMPRESSION: 1. No scintigraphic evidence for ischemia. 2. Normal left ventricular ejection fraction. POS: ROSANGELA
[2018-01-09 15:02] LABS: INR-International Normal Ratio 1.5; Prothrombin Time 18.2 SEC (12.0-14.7)
[2018-01-09 15:31] VITALS: BMI 27.9
--- NOTE | 2018-01-09 18:05 | PDOC.PN ---
- Subjective Encounter Start Date: 01/09/18 Encounter Start Time: 07:20 Pt seen for followup re: chest pain. Reports chest pain is better. No nausea or vomiting. - Objective Resuscitation Status: Resuscitation Status DNR:Do Not Resuscitate MAR Reviewed: Yes Vital Signs & Weight: Vital Signs (12 hours) Temp Pulse Resp BP BP BP Pulse Ox 01/09/18 16:10 97.7 F 67 22 H 93/58 L 96 01/09/18 13:28 129/62 01/09/18 13:27 129/62 01/09/18 12:25 97.9 F 75 16 129/62 96 01/09/18 08:24 98.1 F 68 18 114/59 L 96 Weight Admit Weight 158 lb 8 oz Weight 157 lb 12.8 oz I&O: 01/08/18 01/09/18 01/10/18 06:59 06:59 06:59 Intake Total 290 Balance 290 Result Diagrams: 01/09/18 05:08 01/09/18 05:08 EKG Reviewed by me: Yes (Tele: NSR) Phys Exam - Physical Examination Constitutional: NAD HEENT: moist MMs, oral pharynx no lesions, 2+ tonsils scleral icterus Neck: no nodes, no JVD, supple, full ROM Respiratory: no wheezing, no rales, no rhonchi, clear to auscultation bilateral Cardiovascular: RRR, no rub S1, s2 Gastrointestinal: soft, non-tender, no distention, positive bowel sounds Neurological: moves all 4 limbs Psychiatric: normal affect, A&O x 3 Dx/Plan (1) Chest pain Code(s): R07.9 - CHEST PAIN, UNSPECIFIED Status: Acute Comment: Improving, pt to have stress test (2) Abnormal LFTs Code(s): R94.5 - ABNORMAL RESULTS OF LIVER FUNCTION STUDIES Status: Acute Comment: Etiology unclear. Multaq on hold. Appreciate GI service input. (3) Chronic stage c diastolic heart failure Code(s): I50.32 - CHRONIC DIASTOLIC (CONGESTIVE) HEART FAILURE Status: Chronic Comment: appears to be stable (4) HTN (hypertension) Code(s): I10 - ESSENTIAL (PRIMARY) HYPERTENSION Status: Chronic Qualifiers: Comment: controlled (5) Paroxysmal atrial fibrillation Code(s): I48.0 - PAROXYSMAL ATRIAL FIBRILLATION Status: Chronic Comment: continue warfarin - Plan * . Review of Systems - Review of Systems Constitutional: negative: fever, chills, sweats, weakness, malaise Respiratory: negative: Cough, Shortness of Breath, SOB with Excertion, Pleuritic Pain, Wheezing Cardiovascular: negative: chest pain, palpitations, orthopnea, paroxysmal nocturnal dyspnea, edema, light headedness Gastrointestinal: negative: Nausea, Vomiting, Abdominal Pain, Diarrhea, Constipation, Melena, Hematochezia Genitourinary: negative: Dysuria, Frequency, Incontinence, Hematuria, Retention Musculoskeletal: negative: Neck Pain, Shoulder Pain, Arm Pain, Back Pain, Hand Pain, Leg Pain, Foot Pain Skin: Baltazar. negative: Rash, Lesions, Bruising - Medications/Allergies Allergies/Adverse Reactions: Allergies Allergy/AdvReac Type Severity Reaction Status Date / Time No Known Allergies Allergy Verified 01/08/18 16:35 Medications: Current Medications Allopurinol (Zyloprim) 100 mg PO DAILY [facility] Last Admin: 01/09/18 13:29 Dose: 100 mg [facility]ir[facility] (Ecotrin) [facility] [place] Admin: 01/09/18 13:27 Dose: 81 mg Bisacodyl (Dulcolax) 10 mg PO DAILYPRN PRN PRN Reason: Constipation Carvedilol (Coreg) 12.5 mg PO BID [facility] Clonidine (Catapres) 0.1 mg PO DAILY [facility] Last Admin: 01/09/18 13:28 Dose: 0.1 mg Digoxin (Lanoxin) 0.125 mg PO QPM [facility] Hydroxyurea (Hydrea) 500 [facility] [place] Admin: 01/09/18 13:29 Dose: 500 mg Letrozole (Femara) 2.5 mg [facility] [place] Admin: 01/09/18 13:26 Dose: 2.5 mg Warfarin Sodium (Coumadin) 2.5 mg PO 1700 [facility] Last Admin: 01/08/18 18:19 Dose: 2.5 mg
[2018-01-09] MEDS: Warfarin Sodium 2.5 MG TAB PO SCH (18:41)
--- NOTE | 2018-01-09 18:55 | CT ---
CT ANGIOGRAM OF CHEST: Date: 01/09/18 HISTORY: Shortness of breath. History of blood clots and breast cancer. COMPARISON: 03/11/15. TECHNIQUE: CT angiogram of the chest is performed in the axial plane. Three-dimensional reformatted images are s ubmitted for interpretation. FINDINGS: Trachea and central bronchi are patent. Dependent atelectatic changes and scarring in both lower lobe s. No suspicious masses or consolidation in either lower lobe. Middle lobe and both upper lobes are c lear of any consolidation or masses. There is no pleural effusion or pneumothorax. No lytic or blastic lesions in the osseous structures. No mediastinal mass, lymphadenopathy, or hemat vanessa. Heart is enlarged. No significant pericardial fluid. Limited evaluation of the aorta due to lack of IV contrast opacification. Visualized upper solid organs are unremarkable. Adequate contrast opacification of the pulmonary arterial system to the level of the segmental arteri es. No filling defect to suggest thromboembolism. IMPRESSION: No evidence of pulmonary artery embolism to the level of the segmental arteries. POS: EDWARD
[2018-01-09] MEDS: Digoxin 0.125 MG TAB PO SCH (20:42)
[2018-01-09] MEDS: Carvedilol 6.25 MG TAB PO SCH (20:42)
--- NOTE | 2018-01-09 21:35 | CON ---
DATE OF CONSULTATION: 01/09/2018 REFERRING PHYSICIAN: Dr. Gagnon. REASON FOR CONSULTATION: Atrial fibrillation. HISTORY OF PRESENT ILLNESS: Ms. Rincon is a pleasant 82-year-old woman well known to our practice for history of atrial arrhythmias. 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 She underwent CT I ablation in October of this year for typical atrial flutter. During that EP study and ablation, she w as also found to have atrial fibrillation which required IV amiodarone dose as well as cardioversion to terminate the arrhythmia to sinus rhythm at the end of the EP study. We had offered atrial fibril lation at the time of CTI ablation as well, though she declined this in favor of just the typical flu tter ablation. Since that time, she has had recurrence of her arrhythmias which had previously been fairly well suppressed with flecainide, but she had shown an increasing burden. She was most recentl y seen in our clinic in November at which point it had been recommended post-ablation to consider amiod arone or Multaq. She was started on Multaq 400 mg p.o. b.i.d. Ms. Rincon presented to the hospital with shortness of breath, multiple episodes that have been progre ssive over the past week. Over the past month, she feels that her problems began around the time swi tching from flecainide to Multaq. She denies any heart racing, palpitations, chest pain, pressure, s yncope or near syncopal episodes. She has since been admitted to the hospital and her Multaq has bee n stopped as she was found to have elevated liver enzymes. GI is following her case and feels this i s secondary to passive hepatic congestion from her heart failure. They are considering MRCP at a lat er time during this admission to rule out biliary pathology. REVIEW OF SYSTEMS: Twelve-point review of systems was conducted and is negative except as listed abo ve in the HPI. PAST MEDICAL HISTORY: 1. Frequent atrial arrhythmias including paroxysmal atrial fibrillation and typical atrial flutter, status post CTI ablation. 2. Failed flecainide therapy, not tolerating Multaq therapy now. 3. Sick sinus syndrome, prompting a dual chamber pacemaker, Medtronic Advisa that was placed on 02/06. 4. Preserved LV systolic function, estimated 55-60% by echocardiogram on 05/17/2015, also reveals mi ld TR, moderate MR and normal biatrial size. 5. Hypertension. 6. Lower extremity edema. 7. Moderate carotid artery stenosis 50-69% by scan in 04/2012. 8. Chronic right ICA occlusion in origin by CT in 04/2015. 9. History of left carotid endarterectomy in 04/2012. 10. Negative stress test in 2010. 11. Stage III breast cancer. 12. Colon surgery and mastectomy receiving suppressive chemotherapy. 13. Chronically elevated white blood cell count, possibly due to malignancy according to her and fol lowed by Oncology. 14. History of stroke in 2015, on Coumadin for stroke prophylaxis. 15. TIA in 08/2017 with full resolution of symptoms. ALLERGIES: None. HOME MEDICATIONS: Include clonidine 0.1 mg p.o. daily, Coumadin as directed, potassium chloride 20 m Eq q.a.m., letrozole 2.5 mg p.o. q.a.m., hydroxyurea 500 mg p.o. q.a.m., Multaq 400 mg p.o. b.i.d. (d iscontinued upon admission), digoxin 0.125 mg p.o. q.p.m., carvedilol 6.25 mg p.o. b.i.d., aspirin 81 mg daily, and allopurinol 100 mg p.o. daily. FAMILY HISTORY: Negative for sudden cardiac or early onset coronary artery disease. SOCIAL HISTORY: Negative for alcohol, tobacco or illicit drug use. PHYSICAL EXAMINATION: VITAL SIGNS: Height 5 feet 3 inches, weight 157 pounds. GENERAL: Well-groomed, in no apparent distress. Her speech is clear. Affect is appropriate. She i s alert and oriented. HEENT: Head is normocephalic and atraumatic. Her EOMs are intact. Sclerae are anicteric. NECK: Supple without jugular venous distention. Thyroid is nonpalpable. CHEST: Clear to auscultation bilaterally. Respirations are even and unlabored. HEART: Heart rate is regularly regular. PMI is nondisplaced. ABDOMEN: Obese, soft, nontender without palpable masses. NEUROLOGIC: Grossly intact and nonfocal. Gait was not assessed. LABORATORY DATA: Recent laboratory. Hematology was reviewed and is unremarkable. INR was 1.6 on ad mission, currently 1.5 today. Chemistry, serial troponins are negative. BNP was 527 on 01/08, potas sium 4.2. ALT and AST 279 and 173 respectively on admission, currently 230 and 131. A stress test o n 01/09/2018, normal LV ejection fraction estimated at 73%. No evidence suggesting ischemia. EKGs and telemetry were all personally reviewed that show atrial fibrillation with ventricular pacing . IMPRESSION: 1. Persistent atrial fibrillation despite recent use of Multaq with digoxin for rate control. 2. Medtronic Advisa MRI compatible dual chamber pacemaker placed on 02/24/2016, to be interrogate d. 3. Elevated liver function tests. 4. History of breast cancer with metastases. 5. History of deep venous thrombosis and pulmonary embolism in 2014, concerning for recurrence with her shortness of breath with minimal exertion. 6. Frequent premature ventricular contractions. RECOMMENDATIONS: 1. Discontinue Multaq. 2. Continue rate control strategy for now with digoxin possibly increasing the dose or additionally adding beta rocky, calcium channel blockers. 3. Continue GI workup for elevated liver enzymes. 4. Continue oral anticoagulation as INR is subtherapeutic. 5. We will order a pulmonary CTA to rule out a pulmonary embolus and her shortness of breath and his tory of PE and DVT. Thank you for allowing us to participate in the care of the patient. We will continue to follow thro h her hospitalization and we will make further recommendations for her atrial fibrillation as her d evice was interrogated.
--- NOTE | 2018-01-09 23:11 | PDOC.CTH ---
Cardiology Progress Note - Subjective Pt. seen and eval. by me. She is also being seen by EP. She still complains of SOB with minimal exertion. No acute events. - Objective Vital Signs Temp Pulse Resp BP BP BP Pulse Ox 01/09/18 20:42 67 129/62 01/09/18 16:10 97.7 F 67 22 H 93/58 L 96 01/09/18 13:28 129/62 01/09/18 13:27 129/62 01/09/18 12:25 97.9 F 75 16 129/62 96 Admit Weight 158 lb 8 oz Weight 157 lb 12.8 oz 01/08/18 01/09/18 01/10/18 06:59 06:59 06:59 Intake Total 290 Balance 290 - Labs Result Diagrams: 01/09/18 05:08 01/09/18 05:08 Troponin/CKMB CK-MB (CK-2) 0.7 ng/mL (0-6.6) 01/08/18 11:57 Troponin I Less than 0.010 ng/mL (< 0.028) 01/08/18 17:47 - Assessment/Plan 1. TOMAS: PE ruled out. 2. Hx of fib/flutter. Ablated. Dr. Maldonado managing. 3. Chest pain.Stress test negative. See other notes for complete list of A/P. I will; continue to follow. If she is still having TOMAS, the only other option from a cardiac standpoint would be a cardiac cath but she is negative for ischemia. Review of Systems - Review of Systems Respiratory: reports: SOB with excertion Cardiac (ROS): reports: lightheadedness ABD/GI: reports: no symptoms reported : reports: no symptoms reported
[2018-01-10 05:38] LABS: INR-International Normal Ratio 1.5; Prothrombin Time 18.3 SEC (12.0-14.7)
[2018-01-10 05:41] LABS: #Basophils 0.1 thou/uL (0.0-0.2); #Eosinphils 0.8 thou/uL (0.0-0.7); #Lymphocytes 1.1 thou/uL (1.20-3.40); #Monocytes 0.9 thou/uL (0.11-0.59); #Neutrophils 5.2 thou/uL (1.40-6.50); %Basophils 1.6 % (0.0-1.0); %Eosinophils 9.6 % (0.0-10.0); %Lymphocytes 13.2 % (21.0-51.0); %Monocytes 10.8 % (0.0-10.0); %Neutrophils 64.9 % (42.0-75.0); Hemoglobin 12.5 g/dL (12.0-16.0); Mean Corpuscular Hemoglobin 34.7 pg (27.0-31.0); Mean Platelet Volume 8.1 fL (7.4-10.4); Platelet Count 400 thou/uL (130-400); RBC Distribution Width 15.4 % (11.5-14.5); White Blood Cell (WBC) Count 8.1 thou/uL (4.8-10.8)
[2018-01-10 05:46] LABS: ALT (SGPT) 203 U/L (8-55); AST (SGOT) 110 U/L (5-34); Albumin 3.2 g/dL (3.4-4.8); Alkaline Phosphatase 638 U/L (40-150); Anion Gap 11 mmol/L (10-20); BUN (Urea Nitrogen) 22 mg/dL (9.8-20.1); Bilirubin, Total 1.4 mg/dL (0.2-1.2); Calc. Creatinine Clearance 50 mL/min (70-130); Calcium 8.6 mg/dL (7.8-10.44); Carbon Dioxide 23 mmol/L (23-31); Chloride 106 mmol/L (98-107); Estimated GFR-MDRD 53; Globulin 2.7 g/dL (2.4-3.5); Glucose 128 mg/dL (83-110); Potassium 4.3 mmol/L (3.5-5.1); Protein, Total 5.9 g/dL (6.0-8.3); Sodium 136 mmol/L (136-145)
[2018-01-10 05:50] LABS: Digoxin 0.66 ng/mL (0.8-2.0)
[2018-01-10] MEDS: Allopurinol 100 MG TAB PO SCH (10:01)
[2018-01-10] MEDS: Letrozole 2.5 MG TAB PO SCH (10:01)
[2018-01-10] MEDS: Hydroxyurea 500 MG CAP PO SCH (10:02)
[2018-01-10] MEDS: Carvedilol 6.25 MG TAB PO SCH ×2 (10:02→22:27)
[2018-01-10] MEDS: cloNIDine 0.1 MG TAB PO SCH (10:03)
[2018-01-10] MEDS: Aspirin 81 mg Enteric Coated Tablet PO SCH (10:03)
--- NOTE | 2018-01-10 12:57 | PDOC.CTH ---
Cardiology Progress Note - Subjective EP Progress Note: Patient seen and evaluated. She is feeling somewhat better today but continues to have some dyspnea on exertion. Denies heart racing, palpitations, chest pain/pressure,. or dizziness. - Objective Vital Signs Temp Pulse Resp BP BP Pulse Ox 01/10/18 10:03 129/62 01/10/18 10:02 129/62 01/10/18 08:15 97.9 F 66 18 122/62 96 01/10/18 03:44 97.8 F 60 18 108/57 L 95 Admit Weight 158 lb 8 oz Weight 160 lb 8 oz 01/09/18 01/10/18 01/11/18 06:59 06:59 06:59 Intake Total 290 300 Output Total 100 Balance 290 200 - Physical Examination General/Neuro: alert & oriented x3, NAD Neck: no JVD present Lungs: CTA, unlabored respirations Heart: PMI normal Abdomen: NT/ND, soft - Telemetry Telemetry Rhythm: A Fib - Labs Result Diagrams: 01/10/18 05:19 01/10/18 05:19 Troponin/CKMB CK-MB (CK-2) 0.7 ng/mL (0-6.6) 01/08/18 11:57 Troponin I Less than 0.010 ng/mL (< 0.028) 01/08/18 17:47 - Assessment/Plan 1. Persistent atrial fibrillation, failed flecainide, now cannot take Multaq. Continue rate control with digoxin and increased coreg. BP stable, HR controlled. In the future, if rate control not achieved we anticipate she may need upgrade to BiV device and AVJ ablation. 2. Dual chamber medtronic PPM- interrogation reveals a normal functioning device. Her AF was better controlled immediately after starting Multaq for ~ 2 weeks then began to increase in burden once again. Moderate V pacing seen. 3. CHADS VASC: 6 (age 4, gender 1, HTN 1, prior stroke 2) on Warfarin for OAC. Remains subtherapeutic with INR 1.5- per hospitalist service 4. Dyspnea on exertion- CTA ruled out PE. 5. Elevated liver enzymes attributed to congestion- per GI Continue rx management as is for AF and adjusting warfarin until INR 2-3
--- NOTE | 2018-01-10 13:52 | PRG ---
DATE OF SERVICE: 01/10/2018 GI INPATIENT DAILY PROGRESS NOTE SUBJECTIVE: She is feeling a lot better today. She is less short of breath. She is tolerating her diet. She again confirms that she never really had any abdominal pain or even chest pain as part of these presentations. No nausea or vomiting. OBJECTIVE: VITAL SIGNS: Temperature 97.9, pulse 66, blood pressure 129/62, 96% oxygen saturation on room air. GENERAL: No acute distress. HEART: Irregular rhythm. LUNGS: Clear to auscultation bilaterally. ABDOMEN: Bowel sounds present, soft and nontender to palpation. EXTREMITIES: No peripheral edema. LABORATORY STUDIES: WBC 8.1, hemoglobin 12.5, platelets 400. INR is 1.5. Sodium 136, potassium 4.3 , BUN 22, creatinine 1.01, glucose 128. Total bilirubin is down to 1.4, AST down to 110, ALT down to 203, alkaline phosphatase down to 638. IMAGING STUDIES: Again reviewed CT of the abdomen and pelvis from 01/08/2018. This confirms choleli thiasis, but there is no suspicious focal hepatic lesion, and no evidence of intrahepatic or extrahep atic biliary dilation. ASSESSMENT AND PLAN: 1. Elevated liver function tests. 2. Atrial fibrillation. The patient has no symptoms consistent with biliary obstructive process. S he has had recent ultrasound and CT imaging demonstrating no intrahepatic or extrahepatic biliary dil ation. She does have cholelithiasis, but I doubt that is related to her current presentation. Consi dering all this, I still think it most likely that elevated LFTs are secondary to hepatic congestion. I do think MRCP examination is necessary at this point, unless LFTs were to bump up again or she we re to develop any abdominal symptoms. GI will sign off at this time, but please call back anytime with questions or concerns. Dr. Huerta i is covering for GI this weekend if needed. We will still plan to see the patient back in clinic in a couple of weeks and recheck LFTs at that time.
[2018-01-10] MEDS ORDERED: Warfarin Sodium 5 MG TAB PO SCH (17:00)
--- NOTE | 2018-01-10 18:21 | PDOC.PN ---
- Subjective Encounter Start Date: 01/10/18 Encounter Start Time: 08:00 Pt seen for followup re: abnormal LFTs. Denies chest pain, shortness of breath , fever or chills. - Objective Resuscitation Status: Resuscitation Status DNR:Do Not Resuscitate MAR Reviewed: Yes Vital Signs & Weight: Vital Signs (12 hours) Temp Pulse Resp BP BP Pulse Ox 01/10/18 16:12 97.6 F 69 16 109/53 L 96 01/10/18 12:16 97.7 F 82 20 121/62 99 01/10/18 10:03 129/62 01/10/18 10:02 129/62 01/10/18 08:15 97.9 F 66 18 122/62 96 Weight Admit Weight 158 lb 8 oz Weight 160 lb 8 oz I&O: 01/09/18 01/10/18 01/11/18 06:59 06:59 06:59 Intake Total 290 300 Output Total 100 Balance 290 200 Result Diagrams: 01/11/18 04:50 01/11/18 04:50 EKG Reviewed by me: Yes (Tele: NSR) Phys Exam - Physical Examination Constitutional: NAD HEENT: moist MMs Neck: supple Respiratory: clear to auscultation bilateral Cardiovascular: RRR Gastrointestinal: soft Neurological: moves all 4 limbs Psychiatric: normal affect Skin: no rash Dx/Plan (1) Abnormal LFTs Code(s): R94.5 - ABNORMAL RESULTS OF LIVER FUNCTION STUDIES Status: Acute Comment: Significantly improved, ? secondary to hepatic congestion (2) Chest pain Code(s): R07.9 - CHEST PAIN, UNSPECIFIED Status: Acute Comment: Improving, pt for stress test today (3) Chronic stage c diastolic heart failure Code(s): I50.32 - CHRONIC DIASTOLIC (CONGESTIVE) HEART FAILURE Status: Chronic Comment: stable (4) HTN (hypertension) Code(s): I10 - ESSENTIAL (PRIMARY) HYPERTENSION Status: Chronic Qualifiers: Comment: controlled (5) Paroxysmal atrial fibrillation Code(s): I48.0 - PAROXYSMAL ATRIAL FIBRILLATION Status: Chronic Comment: continue warfarin - Plan * . Review of Systems - Review of Systems Constitutional: negative: fever, chills, sweats, weakness, malaise Cardiovascular: negative: chest pain, palpitations, orthopnea, paroxysmal nocturnal dyspnea, edema, light headedness Gastrointestinal: negative: Nausea, Vomiting, Abdominal Pain, Diarrhea, Constipation, Melena, Hematochezia Skin: Baltazar - Medications/Allergies Allergies/Adverse Reactions: Allergies Allergy/AdvReac Type Severity Reaction Status Date / Time No Known Allergies Allergy Verified 01/08/18 16:35 Medications: Current Medications Allopurinol (Zyloprim) 100 mg PO DAILY [facility] Last Admin: 01/10/18 10:01 Dose: 100 mg Aspirin (Ecotrin) 81 mg PO QAM [facility] Last Admin: 01/10/18 10:03 Dose: 81 mg Bisacodyl (Dulcolax) 10 mg PO DAILYPRN PRN PRN Reason: Constipation Carvedilol (Coreg) 12.5 mg PO BID [facility] Last Admin: 01/10/18 10:02 Dose: 12.5 mg Clonidine (Catapres) 0.1 mg PO DAILY [facility] Last Admin: 01/10/18 10:03 Dose: 0.1 mg Digoxin (Lanoxin) 0.125 mg PO QPM [facility] Last Admin: 01/09/18 20:42 Dose: 0.125 mg [facility]ure[facility] ([facility]ydrea) [facility] Last Admin: 01/10/18 10:02 Dose: 500 mg Letrozole (Femara) 2.5 mg PO [facility] Last Admin: 01/10/18 10:01 Dose: 2.5 mg Warfarin Sodium (Coumadin) 5 mg PO WeFr@1700 [facility] Last Admin: 01/10/18 18:14 Dose: 5 mg Warfarin Sodium (Coumadin) 2.5 mg PO SuMoTuThSa@1700 [facility]
[2018-01-10] MEDS: Digoxin 0.125 MG TAB PO SCH (22:28)
[2018-01-11 05:31] LABS: INR-International Normal Ratio 1.6; Prothrombin Time 18.9 SEC (12.0-14.7)
[2018-01-11 05:41] LABS: ALT (SGPT) 176 U/L (8-55); AST (SGOT) 92 U/L (5-34); Albumin 3.2 g/dL (3.4-4.8); Alkaline Phosphatase 615 U/L (40-150); Anion Gap 13 mmol/L (10-20); BUN (Urea Nitrogen) 22 mg/dL (9.8-20.1); Bilirubin, Total 1.1 mg/dL (0.2-1.2); Calc. Creatinine Clearance 51 mL/min (70-130); Calcium 8.9 mg/dL (7.8-10.44); Carbon Dioxide 24 mmol/L (23-31); Chloride 105 mmol/L (98-107); Estimated GFR-MDRD 53; Globulin 2.8 g/dL (2.4-3.5); Glucose 128 mg/dL (83-110); Potassium 4.8 mmol/L (3.5-5.1); Sodium 137 mmol/L (136-145)
[2018-01-11 05:42] LABS: #Basophils 0.1 thou/uL (0.0-0.2); #Eosinphils 0.9 thou/uL (0.0-0.7); #Lymphocytes 1.3 thou/uL (1.20-3.40); #Monocytes 0.8 thou/uL (0.11-0.59); %Basophils 1.6 % (0.0-1.0); %Lymphocytes 16.2 % (21.0-51.0); %Monocytes 9.9 % (0.0-10.0); %Neutrophils 61.3 % (42.0-75.0); Hemoglobin 12.5 g/dL (12.0-16.0); Mean Corpuscular HGB CONC 32.9 g/dL (32.0-36.0); Mean Corpuscular Hemoglobin 35.7 pg (27.0-31.0); Mean Platelet Volume 8.1 fL (7.4-10.4); Platelet Count 404 thou/uL (130-400); RBC Distribution Width 15.4 % (11.5-14.5); White Blood Cell (WBC) Count 8.1 thou/uL (4.8-10.8)
[2018-01-11] MEDS: Aspirin 81 mg Enteric Coated Tablet PO SCH (09:28)
[2018-01-11] MEDS: Carvedilol 6.25 MG TAB PO SCH ×2 (09:28→20:34)
[2018-01-11] MEDS: Allopurinol 100 MG TAB PO SCH (09:28)
[2018-01-11] MEDS: Hydroxyurea 500 MG CAP PO SCH (09:33)
[2018-01-11] MEDS: cloNIDine 0.1 MG TAB PO SCH (09:33)
[2018-01-11] MEDS: Letrozole 2.5 MG TAB PO SCH (09:33)
--- NOTE | 2018-01-11 14:52 | PDOC.PN ---
- Subjective Encounter Start Date: 01/11/18 Encounter Start Time: 09:00 Pt seen for followup re: abnormal LFTs. Feels better, no complaints today. - Objective Resuscitation Status: Resuscitation Status DNR:Do Not Resuscitate MAR Reviewed: Yes Vital Signs & Weight: Vital Signs (12 hours) Temp Pulse Resp BP BP Pulse Ox 01/11/18 12:15 97.5 F L 60 16 110/60 96 01/11/18 09:28 108/60 01/11/18 07:40 97.9 F 62 18 103/58 L 96 01/11/18 03:59 96 01/11/18 03:25 97.9 F 60 24 H 112/58 L 96 Weight Admit Weight 158 lb 8 oz Weight 157 lb 6 oz I&O: 01/10/18 01/11/18 01/12/18 06:59 06:59 06:59 Intake Total 300 Output Total 100 Balance 200 Result Diagrams: 01/11/18 04:50 01/11/18 04:50 EKG Reviewed by me: Yes (Tele: NSR) Phys Exam - Physical Examination Constitutional: NAD HEENT: moist MMs, sclera anicteric Neck: supple Respiratory: clear to auscultation bilateral Cardiovascular: RRR Gastrointestinal: soft Neurological: moves all 4 limbs Psychiatric: normal affect Dx/Plan (1) Abnormal LFTs Code(s): R94.5 - ABNORMAL RESULTS OF LIVER FUNCTION STUDIES Status: Acute Comment: Significantly improved, likely due to hepatic congestion (Multaq toxicity cannot be ruled out) (2) Chronic stage c diastolic heart failure Code(s): I50.32 - CHRONIC DIASTOLIC (CONGESTIVE) HEART FAILURE Status: Chronic Comment: stable (3) HTN (hypertension) Code(s): I10 - ESSENTIAL (PRIMARY) HYPERTENSION Status: Chronic Qualifiers: Comment: controlled (4) Paroxysmal atrial fibrillation Code(s): I48.0 - PAROXYSMAL ATRIAL FIBRILLATION Status: Chronic Comment: continue warfarin, INR still subtherapeutic. Warfarin dose increased yesterday (5) Chest pain Code(s): R07.9 - CHEST PAIN, UNSPECIFIED Status: Resolved Comment: normal stress test - Plan * . Review of Systems - Review of Systems Respiratory: negative: Cough, Shortness of Breath, SOB with Excertion, Pleuritic Pain, Wheezing Cardiovascular: negative: chest pain, palpitations, orthopnea, paroxysmal nocturnal dyspnea, edema, light headedness - Medications/Allergies Allergies/Adverse Reactions: Allergies Allergy/AdvReac Type Severity Reaction Status Date / Time No Known Allergies Allergy Verified 01/08/18 16:35 Medications: Current Medications Allopurinol (Zyloprim) 100 mg PO DAILY [facility] Last Admin: 01/11/18 09:28 Dose: 100 mg Aspirin (Ecotrin) 81 mg PO QAM [facility] Last Admin: 01/11/18 09:28 Dose: 81 mg Bisacodyl (Dulcolax) 10 mg PO DAILYPRN PRN PRN Reason: Constipation Carvedilol (Coreg) 12.5 mg PO BID [facility] Last Admin: 01/11/18 09:28 Dose: 12.5 mg Clonidine (Catapres) 0.1 mg PO DAILY [facility] Last Admin: 01/11/18 09:33 Dose: 0.1 mg Digoxin (Lanoxin) 0.125 mg PO QPM [facility] Last Admin: 01/10/18 22:28 Dose: 0.125 mg Enoxaparin Sodium (Lovenox) 70 mg SC 0900,2100 [facility] Hydroxyurea (Hydrea) 500 mg PO QAM [facility] Last Admin: 01/11/18 09:33 Dose: 500 mg Letrozole (Femara) [facility] Last Admin: 01/11/18 09:33 Dose: 2.5 mg Warfarin Sodium (Coumadin) 5 mg PO 1700 [facility] Stop: 01/11/18 19:00 Warfarin Sodium (Coumadin) 2.5 mg PO SuMoWeTh@1700 [facility] Warfarin Sodium (Coumadin) 5 mg PO TuFrSa@1700 [facility]
[2018-01-11] MEDS ORDERED: Warfarin Sodium 5 MG TAB PO SCH ×2 (17:00)
[2018-01-11] MEDS ORDERED: Warfarin Sodium 2.5 MG TAB PO SCH (17:00)
[2018-01-11] MEDS: Enoxaparin Sodium 80 MG/0.8 ML SYRINGE SC SCH (20:33)
[2018-01-11] MEDS: Digoxin 0.125 MG TAB PO SCH (20:34)
[2018-01-12 05:43] LABS: INR-International Normal Ratio 1.8; Prothrombin Time 21.1 SEC (12.0-14.7)
[2018-01-12] MEDS: Letrozole 2.5 MG TAB PO SCH (09:12)
[2018-01-12] MEDS: Allopurinol 100 MG TAB PO SCH (09:12)
[2018-01-12] MEDS: cloNIDine 0.1 MG TAB PO SCH (09:12)
[2018-01-12] MEDS: Hydroxyurea 500 MG CAP PO SCH (09:13)
[2018-01-12] MEDS: Carvedilol 6.25 MG TAB PO SCH (09:13)
[2018-01-12] MEDS: Aspirin 81 mg Enteric Coated Tablet PO SCH (09:14)
[2018-01-12] MEDS: Enoxaparin Sodium 80 MG/0.8 ML SYRINGE SC SCH (09:14)
[2018-01-12 11:34] VITALS: BP 104/55; TEMP 97.8
[2018-01-12] MEDS ORDERED: Warfarin Sodium 2.5 MG TAB PO SCH ×2 (12:00→17:00)
--- NOTE | 2018-01-12 19:36 | DIS ---
DATE OF ADMISSION: 01/08/2018 DATE OF DISCHARGE: 01/12/2018 DISCHARGE DIAGNOSES: 1. Abnormal liver function tests. 2. Abnormal liver function tests likely secondary to hepatic congestion, although Multaq toxicity ca nnot be ruled out. 3. Chest pain, likely secondary to musculoskeletal causes. CONDITION OF PATIENT ON THE DAY OF DISCHARGE: Stable. I assessed Ms. Rincon on the day of discharge. She denies any chest pain or shortness of breath. Vital signs are stable. S1 and S2 are heard, re gular. Lungs are clear to auscultation bilaterally. DISCHARGE MEDICATIONS: Allopurinol 100 mg daily; Coreg 6.25 mg 2 times a day; clonidine 0.1 mg daily ; digoxin 0.125 mg in the evening; hydroxyurea 500 mg in the morning; letrozole 2.5 mg daily; aspirin 81 mg daily; warfarin 2.5 mg on Saturday, Saturday, Saturday, , and Saturday and 5 mg on and Saturday. HOSPITAL COURSE: Ms. Rincon is a pleasant 82-year-old lady who was admitted to [facility] on 01/08/2018 for abnormal liver function tests, shortness of breath, and chest pain. Pl ease refer to my history and physical note dated 01/08/2018 for further details. She was seen by Car diology Service, Gastroenterology Service, and Electrophysiology Service during this hospitalization. Multaq was discontinued. She had a CT scan of the abdomen and pelvis on 01/08/2018, which did not show any suspicious focal hepatic lesion. She has cholelithiasis, right renal cyst, and right hemico lectomy. She had subtherapeutic INR at the time of admission. She underwent CT angiogram of the [facility], which did not show any evidence of pulmonary embolism to the level of segmental arteries. She we nt on to have a nuclear stress test on 01/09/2018, which did not show any scintigraphic evidence for ischemia. Calculated left ventricular ejection fraction was 73%. Her LFTs continued to improve during this hospitalization. It is unclear whether they were due to [facility] congestion or secondary to Multaq use. She also improved clinically in terms of chest pain or shortness of breath and is being discharged ho or in a stable condition. On 01/11/2018, she had total bilirubin 1.1, AST 92, ALT 176, and alkaline phosphatase 615. The same day, she had white count of 8100, hemoglobin 12.5, and platelet count 404,000. INR is 1.8 on the day of discharge. She has been advised to follow up with her primary care provider as well as with [facility]. She will likely need to have her liver function tests and INR checked when she is seen by her primary care provider. Many thanks for allowing me to participate in your patient's care. Please feel free to contact me wi th any questions or concerns. DISCHARGE DESTINATION: Home. TOTAL AMOUNT OF TIME SPENT COORDINATING THIS DISCHARGE: 33 minutes.
--- NOTE | 2018-01-14 09:05 | ADD-DIS ---
DATE OF ADMISSION: 01/08/2018 DATE OF DISCHARGE: 01/12/2018 ADDENDUM: Ms. Rincon was taking carvedilol 6.25 mg once daily prior to this hospitalization. Dose stevenson s been increased to 12.5 mg 2 times a day to control atrial tachyarrhythmias. She is advised to cont inue furosemide and potassium on an as needed basis as instructed by her snow technician. Please contact me with any questions or concerns.
[2018-01-14] MEDS ORDERED: Warfarin Sodium 5 MG TAB PO SCH (17:00)
== END 2018-01-12 13:06 | disposition home or self-care (01) | DRG 442 ==
LOC: ERS 11:31 → 2NO 14:20
PROVIDERS: ADMIT Internal Medicine; ATTEND Internal Medicine
DX: K76.1 Chronic passive congestion of liver (principal); I50.32 Chronic diastolic (congestive) heart failure; I48.1 Persistent atrial fibrillation; Z66 Do not resuscitate; R94.5 Abnormal results of liver function studies; T46.2X5A Adverse effect of other antidysrhythmic drugs, initial encounter; I11.0 Hypertensive heart disease with heart failure; I48.0 Paroxysmal atrial fibrillation; Z91.81 History of falling; Z85.3 Personal history of malignant neoplasm of breast; Z95.0 Presence of cardiac pacemaker; K80.20 Calculus of gallbladder without cholecystitis without obstruction; E80.6 Other disorders of bilirubin metabolism; E78.5 Hyperlipidemia, unspecified; K75.9 Inflammatory liver disease, unspecified; R07.89 Other chest pain; N28.1 Cyst of kidney, acquired; Z86.73 Personal history of transient ischemic attack (TIA), and cerebral infarction without residual deficits; Z86.718 Personal history of other venous thrombosis and embolism; Z86.711 Personal history of pulmonary embolism; Z85.6 Personal history of leukemia; Z90.49 Acquired absence of other specified parts of digestive tract; K21.9 Gastro-esophageal reflux disease without esophagitis
CPT/HCPCS: 36415; 71045; 71275; 74177; 78452; 80053; 80162; 82553; 83690; 83880; 84484; 85025; 85610; 85730; 93005; 93017; 93306; A9500; J0280; J1650; J2785

== ENCOUNTER 2018-02-25 10:30 | Outpatient (CLI) | payer MEDICARE, MEDICAID | END 2018-02-25 10:31 | disposition home or self-care (01) | LOC: BICMAMMO 10:30 | PROVIDERS: ATTEND Specialist | DX: Z08 Encounter for follow-up examination after completed treatment for malignant neoplasm (principal); R92.1 Mammographic calcification found on diagnostic imaging of breast; Z85.3 Personal history of malignant neoplasm of breast | CPT/HCPCS: 77065; G0279 ==

== ENCOUNTER 2018-05-09 15:41 | Outpatient (CLI) | payer MEDICARE, MEDICAID ==
[2018-05-09] MEDS ORDERED: Iopamidol 370 76% 100 ML VIAL ONE (16:29)
--- NOTE | 2018-05-09 16:50 | CT ---
CT BRAIN WITH AND WITHOUT IV CONTRAST: Date: 05/09/18 PROVIDED CLINICAL HISTORY: Slurred speech. FINDINGS: Comparison made with study dated 08/31/17. The ventricular system appears unchanged in size and morphology. Encephalomalacia in the distribution in the right posterior cerebral artery is redemonstrated. Encephalomalacia involving the right parie sergei region is also seen. There is no evidence for intracranial hemorrhage or mass effect. There is no abnormal contrast enhancement identified. Encephalomalacia involving a portion of the inferior right frontal lobe is also again seen. The extracranial soft tissues and osseous structures demonstrate no acute abnormality. Vascular calcifications are seen. IMPRESSION: Stable remote ischemic changes. No evidence for intracranial hemorrhage or mass effect. POS: [facility]
== END 2018-05-09 15:42 | disposition home or self-care (01) ==
LOC: BICCT 15:41
PROVIDERS: ATTEND Family Medicine
DX: R47.81 Slurred speech (principal)
CPT/HCPCS: 70470

== ENCOUNTER 2018-09-12 08:59 | Emergency (ER) | payer MEDICARE, MEDICAID ==
--- NOTE | 2018-09-12 09:19 | RAD ---
XR Hand Rt 3 View STANDARD History: [Swelling. Joint pain.] Comparison: None. Findings: Advanced degenerative changes of the thumb carpometacarpal joint with dorsal subluxation. N o acute displaced fracture or malalignment. Advanced interphalangeal joint space narrowing throughout all fingers. Impression: Advanced degenerative changes. No acute osseous normality.
[2018-09-12 10:00] LABS: #Basophils 0.1 thou/uL (0.0-0.2); #Eosinphils 0.2 thou/uL (0.0-0.7); #Lymphocytes 1.3 thou/uL (1.20-3.40); #Monocytes 0.5 thou/uL (0.11-0.59); #Neutrophils 7.9 thou/uL (1.40-6.50); %Basophils 0.7 % (0.0-1.0); %Eosinophils 1.5 % (0.0-10.0); %Lymphocytes 12.6 % (21.0-51.0); %Monocytes 5.3 % (0.0-10.0); %Neutrophils 79.9 % (42.0-75.0); Hemoglobin 14.5 g/dL (12.0-16.0); Mean Corpuscular HGB CONC 35.1 g/dL (32.0-36.0); Mean Corpuscular Hemoglobin 37.6 pg (27.0-31.0); Mean Platelet Volume 7.4 fL (7.4-10.4); Platelet Count 372 thou/uL (130-400); RBC Distribution Width 15.3 % (11.5-14.5); Red Blood Cell (RBC) Count 3.86 mill/uL (4.20-5.40); White Blood Cell (WBC) Count 9.9 thou/uL (4.8-10.8)
[2018-09-12 10:16] LABS: MDiff Complete? YES; Macrocytosis SLIGHT = 6-15 cells (100X) (0-5/hpf); Ovalocytes SLIGHT = 2-5 cells (100X) (0-1/hpf); Platelet Morphology Comment Appears Adequate; Polychromasia SLIGHT = 2-3 cells (100X) (0-2/hpf)
[2018-09-12 10:31] LABS: ALT (SGPT) 29 U/L (8-55); AST (SGOT) 29 U/L (5-34); Albumin 4.1 g/dL (3.4-4.8); Alkaline Phosphatase 140 U/L (40-150); Anion Gap 13 mmol/L (10-20); BUN (Urea Nitrogen) 22 mg/dL (9.8-20.1); Bilirubin, Total 1.5 mg/dL (0.2-1.2); Calc. Creatinine Clearance 0 mL/min (70-130); Calcium 9.7 mg/dL (7.8-10.44); Carbon Dioxide 24 mmol/L (23-31); Chloride 108 mmol/L (98-107); Estimated GFR-MDRD 48; Glucose 144 mg/dL (83-110); Potassium 4.7 mmol/L (3.5-5.1); Protein, Total 7.1 g/dL (6.0-8.3); Sodium 140 mmol/L (136-145)
== END 2018-09-12 11:07 | disposition home or self-care (01) ==
LOC: ERS 08:59
DX: M19.041 Primary osteoarthritis, right hand (principal); I48.91 Unspecified atrial fibrillation; I10 Essential (primary) hypertension; Z79.899 Other long term (current) drug therapy
CPT/HCPCS: 36415; 80053; 85025; 85610; 85652; 86140

== ENCOUNTER 2018-11-22 15:41 | Observation (INO) | payer MEDICARE, MEDICAID ==
[2018-11-22 15:59] LABS: #Basophils 0.1 thou/uL (0.0-0.2); #Eosinphils 0.2 thou/uL (0.0-0.7); #Lymphocytes 1.7 thou/uL (1.20-3.40); #Monocytes 0.9 thou/uL (0.11-0.59); #Neutrophils 6.6 thou/uL (1.40-6.50); %Basophils 0.8 % (0.0-1.0); %Eosinophils 2.4 % (0.0-10.0); %Lymphocytes 17.6 % (21.0-51.0); %Monocytes 9.5 % (0.0-10.0); %Neutrophils 69.8 % (42.0-75.0); Hemoglobin 15.5 g/dL (12.0-16.0); Mean Corpuscular Hemoglobin 35.9 pg (27.0-31.0); Mean Platelet Volume 7.5 fL (7.4-10.4); Platelet Count 403 thou/uL (130-400); RBC Distribution Width 15.8 % (11.5-14.5); Red Blood Cell (RBC) Count 4.31 mill/uL (4.20-5.40); White Blood Cell (WBC) Count 9.4 thou/uL (4.8-10.8)
[2018-11-22 16:04] LABS: INR-International Normal Ratio 1.8; Prothrombin Time 20.7 SEC (12.0-14.7)
[2018-11-22 16:05] LABS: PTT 40.4 SEC (22.9-36.1)
--- NOTE | 2018-11-22 16:14 | CT ---
CT BRAIN WITHOUT CONTRAST: 11/22/18 HISTORY: Slurred speech, CVA in the past. Left hand numbness, stroke alert. FINDINGS: Comparison made with exam of 05/09/18. Encephalomalacia due to old infarctions are seen in the right frontal, parietal and occipital lobes. The ventricular size is stable and the basilar cisterns are patent. No evidence of acute infarct, hem orrhage, midline shift, or abnormal extra-axial fluid collections are seen. The bony calvarium is int act. The visualized paranasal sinuses and mastoid air cell are well aerated. IMPRESSION: No CT evidence of acute intracranial process. Discussed over the telephone with ER physician, Dr. Hoffman at 3:51 p.m. POS: ROSANGELA
[2018-11-22 16:16] LABS: ALT (SGPT) 24 U/L (8-55); AST (SGOT) 25 U/L (5-34); Albumin 4.5 g/dL (3.4-4.8); Alkaline Phosphatase 142 U/L (40-150); Anion Gap 18 mmol/L (10-20); BUN (Urea Nitrogen) 23 mg/dL (9.8-20.1); Bilirubin, Total 1.3 mg/dL (0.2-1.2); CK (CPK) 64 U/L (29-168); Calc. Creatinine Clearance 0 mL/min (70-130); Calcium 10.2 mg/dL (7.8-10.44); Carbon Dioxide 22 mmol/L (23-31); Chloride 105 mmol/L (98-107); Estimated GFR-MDRD 39; Globulin 3.3 g/dL (2.4-3.5); Glucose 105 mg/dL (83-110); Potassium 4.5 mmol/L (3.5-5.1); Protein, Total 7.8 g/dL (6.0-8.3); Sodium 140 mmol/L (136-145)
[2018-11-22 16:20] LABS: MDiff Complete? YES; Macrocytosis MODERATE=16-30 cells (100X) (0-5/hpf); Ovalocytes SLIGHT = 2-5 cells (100X) (0-1/hpf); Platelet Morphology Comment Appears Increased; Polychromasia SLIGHT = 2-3 cells (100X) (0-2/hpf)
--- NOTE | 2018-11-22 16:38 | CT ---
CT ANGIOGRAM NECK WITH CONTRAST CT ANGIOGRAM BRAIN WITH CONTRAST: DATE: 11/22/2018 HISTORY: 83-year-old female with acute stroke. Dysarthria. Left hand hypoesthesia. Dr. Akbar verbally gave this stroke alert protocol report by telephone to Dr. Hoffman at 4:33 PM on 11/06. TECHNIQUE: After IV contrast injection, arterial bolus chasing technique scan performed from AP window to vertex of head. Coronal and sagittal 3-D MIP reconstructions. FINDINGS: Brachiocephalic: No high-grade stenosis. Right subclavian: No high-grade stenosis. Right common carotid: No stenosis. Right internal carotid: Origin not visualized. Several centimeters superior to origin, there is recon stitution of a very thin, small caliber artery that may represent an extremely thin cervical right internal carotid. This communicates with a diffusely moderately small caliber right petrous carotid. Atherosclerotic calcification throughout cavernous carotid. Short segment focus of moderate stenosis at supraclinoid right internal carotid. Right MCA: M1 segment patent without thrombus or high-grade stenosis. Right vertebral: Very diminutive. Left subclavian: No evidence of high-grade stenosis proximal to the left vertebral artery origin. Dis sergei to that, the artery is partially obscured by streak artifact from contrast material in adjacent left subclavian vein. Left common carotid: No significant stenosis. Left internal carotid: No high-grade stenosis throughout cervical portion and carotid siphon. Left MCA: M1 segment 8 and and clear with no stenosis or clot. Left vertebral: Dominant, patent, and clear with no stenosis, including the intracranial portion. Basilar: Normal. Bilateral posterior cerebral's: P1 and P2 segments bilaterally patent. Right P3 segment attenuated an d difficult to visualize. Bilateral ACAs: A1 and A2 segments patent and clear. Patent anterior communicating artery. Moderately large old infarction right occipital lobe involving posteromedial temporal lobe. Small old infarction right frontal lobe. Small old infarction right posterior upper parietal lobe. IMPRESSION: 1. No thrombosis or high-grade stenosis of M1 segments of middle cerebral arteries. 2. Severe, diffuse stenosis of right internal carotid artery, chronic, string sign. 3. Moderately large old infarction right posterior cerebral artery territory. 4. Small old right upper parietal infarction, right middle cerebral artery territory. 5. Small old infarction right frontal lobe, right middle cerebral artery territory. 6. Diminutive right vertebral artery.
[2018-11-22] MEDS ORDERED: ISOVUE-370 76%-LOCM 1 ML ONE (16:52)
--- NOTE | 2018-11-22 17:04 | RAD ---
RADIOGRAPH CHEST 1 VIEW: DATE: 11/22/2018 HISTORY: 83-year-old female with cardiac dysrhythmia. FINDINGS: There is cardiomegaly. There is no evidence of airspace density, pulmonary edema, or pneumothorax. Th e lateral costophrenic angles are not effaced. Left subclavian dual lead transvenous permanent pacemaker. IMPRESSION: 1) No acute pulmonary findings. 2) cardiomegaly without congestive heart failure. 3) pacemaker.
[2018-11-22] MEDS ORDERED: Acetaminophen 500 MG TAB ONE (17:45)
[2018-11-22] MEDS ORDERED: Labetalol HCl 100 MG/20 ML VIAL SLOW IVP PRN (18:23)
[2018-11-22] MEDS ORDERED: hydrALAZINE 20 MG/ML VIAL SLOW IVP PRN (18:23)
[2018-11-22] MEDS ORDERED: Aspirin 325 MG TAB ONE (18:39)
[2018-11-22] MEDS ORDERED: Ondansetron PF 4 MG/2 ML Vial ONE (18:41)
[2018-11-22 19:19] LABS: Troponin I 0.013 ng/mL (< 0.028)
[2018-11-22] MEDS: Enoxaparin Sodium 80 MG/0.8 ML SYRINGE SC SCH (20:30)
[2018-11-22] MEDS ORDERED: Ondansetron PF 4 MG/2 ML Vial IVP PRN (21:30)
[2018-11-22] MEDS ORDERED: Acetaminophen 500 MG TAB PO PRN (21:30)
[2018-11-22] MEDS ORDERED: Ondansetron ODT 4 MG TAB PO PRN (21:30)
[2018-11-22] MEDS ORDERED: HYDROcodone/Acetaminophen 5/325 mg Tablet PO PRN (21:30)
--- NOTE | 2018-11-22 21:43 | HP ---
CHIEF COMPLAINT: Slurred speech, expressive aphasia. HISTORY OF PRESENT ILLNESS: Ms. Rincon is a pleasant 83-year-old female with past medical history significant for atrial arrhythmias including persistent atrial fibrillation and atrial flutter, status post ablation, currently anticoagulated with warfarin; sick sinus syndrome, status post MRI compatible dual-chamber pacemaker; carotid artery stenosis with a 100% chronic total occlusion of the right internal carotid artery; hypertension; and previous CVA, who presented to the hospital with the above complaints. The patient was in her usual state of health this morning around 6:30 a.m., and stated "she felt very well." Her daughter saw her at this time, and she was at her baseline status. Sometime around 11 a.m., the patient was noted to have some slurred speech according to her grandson. The patient stated that she went to find him because she felt as if she could not talk. Her daughter was called, and the patient was brought to our facility for further workup and treatment. On arrival to the emergency department, her symptoms were resolving, and at this time, the patient is back to baseline. She does complain of headache, but is answering questions appropriately and is nonfocal. Workup thus far has included an EKG which appears to show underlying atrial fibrillation with ventricular pacing. Her troponin has been negative. CT of the brain was negative for any acute pathology, and CT angio of the neck and head showed known chronic total occlusion of the right internal carotid artery with string sign, no thrombosis or high-grade stenosis of M1 or segments of the middle cerebral arteries. Of note, the patient has been on Coumadin for stroke prophylaxis. Her INR at the time of arrival was subtherapeutic at 1.8. Her daughter, who is present at bedside, states that earlier in the week, her INR was 2.5. REVIEW OF SYSTEMS: A 12-point review of systems performed and is negative except as stated above. PAST MEDICAL HISTORY: 1. Atrial arrhythmias including atrial flutter, status post ablation and atrial fibrillation, failing flecainide and Multaq, now persistent, anticoagulation with Coumadin as mentioned above. 2. Sick sinus syndrome, status post dual-chamber Medtronic MRI compatible pacemaker. 3. Valvular disease including moderate mitral regurgitation and TR, preserved EF. 4. Hypertension. 5. Carotid artery stenosis with chronic total occlusion of the right ICA. 6. Previous cerebrovascular accident in 2016, with multiple infarcts present per MRI performed in 2014. 7. Breast cancer, status post left mastectomy. 8. Thrombocytosis, followed by Dr. Rinaldi. 9. Stage 3 chronic kidney disease, followed by Dr. Jensen. PAST SURGICAL HISTORY: 1. Dual-chamber pacemaker as outlined above. 2. Left mastectomy. 3. Right hemicolectomy following a bowel obstruction. 4. Atrial flutter ablation. 5. Left carotid endarterectomy in April 2012. FAMILY HISTORY: Noncontributory. SOCIAL HISTORY: The patient lives at home with family. She has no past smoking history. No illicit drug use and does not use any alcohol. ALLERGIES: NO KNOWN DRUG ALLERGIES. HOME MEDICATIONS: 1. Aspirin 81 mg daily. 2. Allopurinol 300 mg tablet once daily. 3. Furosemide 40 mg tablet once daily. 4. Digoxin 125 mcg one tablet daily. 5. Potassium 20 mEq one tablet daily. 6. Letrozole 2.5 mg one tablet once daily. 7. Hydroxyurea 500 mg orally daily. 8. Atorvastatin 20 mg one at bedtime. 9. Carvedilol 6.25 mg p.o. b.i.d. 10. Warfarin 2.5 mg tablet daily except Saturday, Saturday, Saturday when she takes one-half tablet. PHYSICAL EXAMINATION: VITAL SIGNS: In the emergency room, blood pressure 177/84, pulse 66, O2 saturation was 100% on room air, and respirations 18. GENERAL: The patient is an elderly female, resting comfortably in bed , in no acute distress. HEENT: Head is atraumatic and normocephalic. Mucous membranes are moist, poor dentition. NECK: Trachea is midline. No obvious JVD. CV: S1 and S2. Regular rate and rhythm. No appreciable murmurs, rubs, or gallops. LUNGS: Regular respiratory rate and pattern. Clear to auscultation bilaterally. ABDOMEN: Positive bowel sounds. Soft, nontender. Mildly obese. EXTREMITIES: Trace edema bilaterally, both lower extremities are warm and well perfused. NEUROLOGIC: Cranial nerves 2 through 12 are grossly intact. Upon my exam, the patient is nonfocal. LABORATORY DATA: White blood cell count is 9.4, hemoglobin 15.5, hematocrit 46.9, and platelets 403. PT 20.7, INR 1.8, and PTT 40.4. Sodium 140, potassium 4.5, chloride 105, carbon dioxide 22, anion gap 18, BUN 23, and creatinine 1.31. AST 25, ALT 24, alk phosphatase 142, and creatine kinase 64. Troponin negative x2. ASSESSMENT: 1. Slurred speech, expressive aphasia, consistent with transient ischemic attack/cerebrovascular accident, not a candidate for tPA; this is at least the second event that the patient has had on Coumadin; the patient had a previous cerebrovascular accident in 2016, and an MRI dated 2014 showed three previous insults. 2. Persistent atrial fibrillation, CHADS-VASc equals 7, preserved ejection fraction. 3. Dual-chamber Medtronic MRI compatible pacemaker in-situ. 4. Carotid artery stenosis with known chronic total occlusion of the right internal carotid artery. 5. Hypertension. 6. Breast cancer, status post mastectomy. 7. Thrombocytosis, followed by Dr. Rinaldi. 8. Acute on chronic, stage 3, kidney disease, creatinine 1.33. PLAN: At this time, we will admit the patient for CVA rule out. The patient will have an MRI, as well as an echocardiogram. I do believe that the patient would benefit from a factor Xa inhibitor such as Xarelto or Eliquis as opposed to Coumadin, and we will consult Cardiology for further recommendations regarding this. Will interrogate PM. We will continue her home medications including aspirin and statin. We will obtain a fasting lipid panel in the morning. While awaiting Cardiology recommendations , I will cover the patient with Lovenox for now and adjust Coumadin. I will provide gentle IV fluid resuscitation as well. Further recommendations based on findings of MRI. Depending on results, she may need neurology consult as well. We will also obtain a Physical Therapy consult. Job ID: [id number] [facility]
[2018-11-22] MEDS ORDERED: Warfarin Sodium 2.5 MG TAB PO SCH (21:45)
[2018-11-22 22:11] LABS: Troponin I 0.012 ng/mL (< 0.028)
--- NOTE | 2018-11-22 22:23 | CT ---
CT BRAIN NONCONTRAST: DATE: 11/22/2018 10:02 PM HISTORY: 83-year-old female with severe headache, increased altered mental status: Confusion, nausea, and vomi ting. COMPARISON: 11/22/2018 3:46 PM FINDINGS: There is no evidence of acute intra-axial or extra-axial hemorrhage. There is no midline shift or any other mass effect. There is no extra-axial fluid collection. There is no evidence of obstructive hydrocephalus. Calvarium is intact. Old right-sided infarctions are again noted. There has been no in terval change. IMPRESSION: 1. No acute intracranial findings. 2. Moderate-large old infarction in right posterior cerebral artery territory. 3. Small old right upper parietal infarction in right middle cerebral artery territory. 4. Small old right inferior lateral frontal infarction in right middle cerebral artery territory. 5. No interval change since earlier this afternoon.
[2018-11-22] MEDS: Digoxin 0.125 MG TAB PO SCH (22:30)
[2018-11-22] MEDS: Carvedilol 25 MG TAB PO SCH (22:32)
[2018-11-22] MEDS: Sodium Chloride 0.9% 1,000 ML IV SCH (22:37)
[2018-11-22 23:48] VITALS: BMI 28.3
[2018-11-23 05:17] LABS: INR-International Normal Ratio 1.9
[2018-11-23 05:33] LABS: Anion Gap 13 mmol/L (10-20); BUN (Urea Nitrogen) 25 mg/dL (9.8-20.1); Calc. Creatinine Clearance 40 mL/min (70-130); Calcium 9.3 mg/dL (7.8-10.44); Carbon Dioxide 22 mmol/L (23-31); Cardiac Risk 3.9 (Less than 4.5); Chloride 106 mmol/L (98-107); Cholesterol 143 mg/dl (< 200 Desired); Digoxin 0.83 ng/mL (0.8-2.0); Estimated GFR-MDRD 41; Glucose 118 mg/dL (83-110); HDL Cholesterol 37 mg/dL (>60 Neg Risk); LDL Cholesterol, Calculated 86 mg/dL; Potassium 4.7 mmol/L (3.5-5.1); Sodium 136 mmol/L (136-145); Triglycerides 101 mg/dL (Less than 150)
[2018-11-23 06:11] LABS: Folate (Folic Acid) 14.4 ng/mL (7.0-31.4)
[2018-11-23] MEDS: Sodium Chloride 0.9% 1,000 ML IV SCH ×2 (08:21→15:42)
[2018-11-23] MEDS: Aspirin 81 mg Enteric Coated Tablet PO SCH (08:22)
[2018-11-23] MEDS: Potassium Chloride 20 MEQ TAB PO SCH (08:22)
[2018-11-23] MEDS: Hydroxyurea 500 MG CAP PO SCH (08:23)
[2018-11-23] MEDS: Allopurinol 100 MG TAB PO SCH (08:24)
[2018-11-23] MEDS: Atorvastatin Calcium 20 MG TAB PO SCH (08:24)
[2018-11-23] MEDS: Enoxaparin Sodium 80 MG/0.8 ML SYRINGE SC SCH ×2 (08:25→20:15)
[2018-11-23] MEDS: Letrozole 2.5 MG TAB PO SCH (08:26)
[2018-11-23 08:30] LABS: #Basophils 0.1 thou/uL (0.0-0.2); #Eosinphils 0.1 thou/uL (0.0-0.7); #Lymphocytes 1.3 thou/uL (1.20-3.40); #Monocytes 0.7 thou/uL (0.11-0.59); #Neutrophils 7.7 thou/uL (1.40-6.50); %Basophils 0.6 % (0.0-1.0); %Eosinophils 0.5 % (0.0-10.0); %Lymphocytes 13.3 % (21.0-51.0); %Monocytes 6.9 % (0.0-10.0); %Neutrophils 78.7 % (42.0-75.0); Hemoglobin 13.8 g/dL (12.0-16.0); Mean Corpuscular HGB CONC 33.7 g/dL (32.0-36.0); Mean Platelet Volume 7.4 fL (7.4-10.4); Platelet Count 339 thou/uL (130-400); RBC Distribution Width 15.5 % (11.5-14.5); Red Blood Cell (RBC) Count 3.73 mill/uL (4.20-5.40); White Blood Cell (WBC) Count 9.7 thou/uL (4.8-10.8)
[2018-11-23 08:35] LABS: PTT 53.1 SEC (22.9-36.1)
[2018-11-23 08:36] LABS: INR-International Normal Ratio 1.9; Prothrombin Time 21.5 SEC (12.0-14.7)
[2018-11-23 08:53] LABS: ALT (SGPT) 17 U/L (8-55); AST (SGOT) 22 U/L (5-34); Albumin 3.6 g/dL (3.4-4.8); Alkaline Phosphatase 110 U/L (40-150); Anion Gap 16 mmol/L (10-20); BUN (Urea Nitrogen) 24 mg/dL (9.8-20.1); Bilirubin, Total 0.8 mg/dL (0.2-1.2); Calc. Creatinine Clearance 40 mL/min (70-130); Calcium 9.2 mg/dL (7.8-10.44); Carbon Dioxide 20 mmol/L (23-31); Chloride 105 mmol/L (98-107); Estimated GFR-MDRD 41; Glucose 118 mg/dL (83-110); Potassium 4.5 mmol/L (3.5-5.1); Protein, Total 6.6 g/dL (6.0-8.3); Sodium 136 mmol/L (136-145)
[2018-11-23] MEDS: Carvedilol 25 MG TAB PO SCH ×2 (09:19→20:15)
--- NOTE | 2018-11-23 11:37 | MRI ---
MRI BRAIN WITHOUT CONTRAST: HISTORY: Slurred speech. Altered mental status. TIA. Stroke. CORRELATION: The previous day's CT scans. FINDINGS: No restricted diffusion is seen. Old infarctions of the right occipital, frontal, and parietal lobes are again seen. No evidence of acute infarct, hemorrhage, midline shift, or abnormal extraaxial flu id collections is seen. There are changes of cortical atrophy and chronic small vessel ischemic dise ase. The ventricular size is appropriate, and the basilar cisterns are patent. IMPRESSION: No evidence of acute intracranial process. POS: ROSANGELA
--- NOTE | 2018-11-23 11:37 | PDOC.HOSPP ---
- Subjective Encounter Date: 11/23/18 Encounter Time: 09:30 Subjective: Patient examined, denies new complaints, reports she feels better today. - Objective Vital Signs & Weight: Vital Signs (12 hours) Temp Pulse Resp BP Pulse Ox 11/23/18 07:57 98.4 F 66 16 110/57 L 95 11/23/18 04:00 98.1 F 74 16 99/52 L 95 11/22/18 23:57 97.9 F 96 16 151/79 H 93 L Weight Weight 72.484 kg I&O: 11/22/18 11/23/18 11/24/18 06:59 06:59 06:59 Intake Total 1250 Balance 1250 Result Diagrams: 11/23/18 08:04 11/23/18 08:04 Additional Labs: Accuchecks 11/22/18 15:48 POC Glucose 98 ROS - Review of Systems Gastrointestinal: reports: nausea, vomitting (resolved) Neurological: reports: change in speech - Medication Medications: Active Medications Generic Name Dose Route Start Last Admin Trade Name Freq PRN Reason Stop Dose Admin Hydrocodone Bitart/Acetaminophen 1 tab 11/22/18 21:30 11/22/18 22:30 Laurel 5/325 PO 1 tab Q4H PRN Administration Moderate Pain (4-6) Allopurinol 300 mg 11/23/18 09:00 11/23/18 08:24 Zyloprim PO 300 mg DAILY JENNIFER Administration Aspirin 81 mg 11/23/18 09:00 11/23/18 08:22 Ecotrin PO 81 mg DAILY JENNIFER Administration Atorvastatin Calcium 20 mg 11/23/18 09:00 11/23/18 08:24 Lipitor PO 20 mg DAILY JENNIFER Administration Carvedilol 12.5 mg 11/22/18 21:00 11/23/18 09:19 Coreg PO 12.5 mg BID JENNIFER Administration Digoxin 0.125 mg 11/22/18 21:00 11/22/18 22:30 Lanoxin PO 0.125 mg QPM JENNIFER Administration Enoxaparin Sodium 80 mg 11/22/18 21:00 11/23/18 08:25 Lovenox SC 80 mg 0900,2100 JENNIFER Administration Hydroxyurea 500 mg 11/23/18 09:00 11/23/18 08:23 Hydrea PO 500 mg QAM JENNIFER Administration Sodium Chloride 1,000 mls @ 100 mls/hr 11/22/18 20:45 11/23/18 08:21 Normal Saline 0.9% IV 1,000 mls .Q10H JENNIFER Administration Letrozole 2.5 mg 11/23/18 09:00 11/23/18 08:26 Femara PO 2.5 mg QAM JENNIFER Administration Potassium Chloride 20 meq 11/23/18 08:00 11/23/18 08:22 K-Dur PO 20 meq QAM-WM JENNIFER Administration - Exam Eye: PERRL ENT: moist mucosa Neck: supple, no JVD Heart: RRR, irregular Respiratory: CTAB Gastrointestinal: soft, non-tender Extremities: no cyanosis Skin: normal turgor Neurological: CN's grossly intact Musculoskeletal: normal tone, normal strength Psychiatric: normal affect, A&O x 3 Hosp A/P (1) TIA (transient ischemic attack) Code(s): G45.9 - TRANSIENT CEREBRAL ISCHEMIC ATTACK, UNSPECIFIED Status: Acute (2) Diarrhea Code(s): R19.7 - DIARRHEA, UNSPECIFIED Status: Acute (3) Anticoagulant long-term use Code(s): Z79.01 - HALF-WAY (CURRENT) USE OF ANTICOAGULANTS Status: Chronic (4) HTN (hypertension) Code(s): I10 - ESSENTIAL (PRIMARY) HYPERTENSION Status: Chronic Qualifiers: (5) History of CVA (cerebrovascular accident) Code(s): Z86.73 - PRSNL HX OF TIA (TIA), AND CEREB INFRC W/O RESID DEFICITS Status: Chronic (6) Paroxysmal atrial fibrillation Code(s): I48.0 - PAROXYSMAL ATRIAL FIBRILLATION Status: Chronic - Plan Stroke workup, MRI, ECHO, pending Cardiology consult pending to see if appropriate to change from coumadin Patient's INR is subtherapeutic PT/OT/Speech consult also pending Will check labs, PT/INR in AM Will continue to monitor
[2018-11-23] MEDS ORDERED: Warfarin Sodium 2.5 MG TAB PO SCH (17:00)
[2018-11-23] MEDS: Digoxin 0.125 MG TAB PO SCH (20:15)
[2018-11-23] MEDS ORDERED: Loperamide HCl 2 MG CAP PO PRN (22:15)
--- NOTE | 2018-11-24 00:56 | CON ---
DATE OF CONSULTATION: HISTORY OF PRESENT ILLNESS: Karissa Rincon is a pleasant 83-year-old white female, patient of Dr. Gaffney who has history of chronic atrial fibrillation, which persisted after atrial fibrillation ablation one year ago. She also has a dual-chamber pacemaker, complete occlusion of the right internal carotid artery and status post left carotid endarterectomy. She also has had a previous CVA. She tells me that somewhere around 1:00 p.m. yesterday she started to have slurred speech and difficulty talking. Apparently, she did not have any arm or leg weakness. She was brought to the hospital and CT of the brain was unremarkable. CT angio of the neck and head showed the known chronic total occlusion of the right internal carotid artery. Her INR was 1.8. Her symptoms have essentially totally resolved. PAST MEDICAL HISTORY: Chronic atrial fibrillation, sick sinus syndrome status post pacemaker placement, hypertension, cerebrovascular accident in 2016, breast cancer, chronic kidney disease. PAST SURGICAL HISTORY: Pacemaker placement, left mastectomy, right hemicolectomy following a bowel obstruction, atrial fibrillation ablation, left carotid endarterectomy by Dr. Vick Reese in April 2012. MEDICATIONS: 1. Warfarin 2.5 mg daily except 1/2 tablet on Saturday, Saturday, and Saturday. 2. Aspirin 81 daily. 3. Allopurinol 300 daily. 4. Furosemide 40 daily. 5. Digoxin 0.125 daily. 6. Potassium 20 mEq daily. 7. Letrozole 2.5 mg daily. 8. Hydroxyurea 500 daily. 9. Atorvastatin 20 at bedtime. 10. Carvedilol 6.25 b.i.d. ALLERGIES: NONE. PHYSICAL EXAMINATION: VITAL SIGNS: Blood pressure 101/55, pulse of 61. 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 CHEST: Clear. CARDIAC: S1 and S2 normal without any S3 or S4. There is a 1/6 holosystolic murmur at the apex. Carotid upstrokes normal without significant bruits. ABDOMEN: Normal bowel sounds without tenderness or organomegaly. EXTREMITIES: Reveal no clubbing, cyanosis, or edema. NEUROLOGICAL: The patient has normal strength and normal speaking at this time. LABORATORY DATA: EKG revealed ventricular pacing. On interrogation of her pacemaker, she essentially is in atrial fibrillation 100% of the time. Hemoglobin 13.8, hematocrit 40.9, white count 9700. INR in the emergency room was 1.8. Sodium 136, potassium 4.5, chloride 105, carbon dioxide 20, BUN 24, creatinine 1.26. Cardiac enzymes were unremarkable. Cholesterol 143, triglycerides 101, HDL 37, LDL 86, digoxin 0.83. IMPRESSION: 1. Transient ischemic attack with slurred speech, slight left facial droop, which appears to have totally resolved. 2. Persistent atrial fibrillation with CHADS-VASc of 7. 3. Status post pacemaker placement. 4. Chronic total occlusion of the right internal carotid artery, status post left carotid endarterectomy. 5. Hypertension. 6. Breast cancer status post left mastectomy. 7. Thrombocytosis. 8. Chronic kidney disease. PLAN: Currently, she is on Lovenox 1 mg/kg b.i.d. and continues on warfarin with subtherapeutic INRs. I certainly agree that being on Xarelto or Eliquis would be a better option. In talking with the daughter, this had been discussed previously , however, cost had been prohibitive. I gave her the names of the newer anticoagulants and she will check to see if there is any way to obtain those with the patient's secondary insurance. However, she does not have Medicare Part D. The daughter does state that she had an INR of 2.[address] Gaffney will return in the morning. Job ID: [id number] [facility]
[2018-11-24 04:59] LABS: #Basophils 0.1 thou/uL (0.0-0.2); #Eosinphils 0.2 thou/uL (0.0-0.7); #Lymphocytes 1.7 thou/uL (1.20-3.40); #Monocytes 0.7 thou/uL (0.11-0.59); #Neutrophils 4.8 thou/uL (1.40-6.50); %Basophils 1.2 % (0.0-1.0); %Eosinophils 3.1 % (0.0-10.0); %Lymphocytes 22.4 % (21.0-51.0); %Neutrophils 64.3 % (42.0-75.0); Hemoglobin 13.5 g/dL (12.0-16.0); Mean Corpuscular HGB CONC 34.1 g/dL (32.0-36.0); Mean Corpuscular Hemoglobin 37.8 pg (27.0-31.0); Mean Platelet Volume 7.8 fL (7.4-10.4); Platelet Count 333 thou/uL (130-400); RBC Distribution Width 16.6 % (11.5-14.5); Red Blood Cell (RBC) Count 3.56 mill/uL (4.20-5.40); White Blood Cell (WBC) Count 7.4 thou/uL (4.8-10.8)
[2018-11-24 05:00] LABS: INR-International Normal Ratio 2.3; Prothrombin Time 25.4 SEC (12.0-14.7)
[2018-11-24 05:01] LABS: PTT 66.6 SEC (22.9-36.1)
[2018-11-24 05:28] LABS: ALT (SGPT) 21 U/L (8-55); AST (SGOT) 25 U/L (5-34); Albumin 3.4 g/dL (3.4-4.8); Alkaline Phosphatase 102 U/L (40-150); Anion Gap 12 mmol/L (10-20); BUN (Urea Nitrogen) 21 mg/dL (9.8-20.1); Bilirubin, Total 0.6 mg/dL (0.2-1.2); Calc. Creatinine Clearance 48 mL/min (70-130); Calcium 8.9 mg/dL (7.8-10.44); Carbon Dioxide 22 mmol/L (23-31); Chloride 109 mmol/L (98-107); Estimated GFR-MDRD 50; Globulin 2.7 g/dL (2.4-3.5); Glucose 93 mg/dL (83-110); Protein, Total 6.1 g/dL (6.0-8.3); Sodium 139 mmol/L (136-145)
[2018-11-24] MEDS: Sodium Chloride 0.9% 1,000 ML IV SCH (06:38)
[2018-11-24 07:37] VITALS: BP 121/68; TEMP 97.7
[2018-11-24] MEDS: Carvedilol 25 MG TAB PO SCH (08:28)
[2018-11-24] MEDS: Allopurinol 100 MG TAB PO SCH (08:28)
[2018-11-24] MEDS: Potassium Chloride 20 MEQ TAB PO SCH (08:28)
[2018-11-24] MEDS: Hydroxyurea 500 MG CAP PO SCH (08:28)
[2018-11-24] MEDS: Aspirin 81 mg Enteric Coated Tablet PO SCH (08:28)
[2018-11-24] MEDS: Atorvastatin Calcium 20 MG TAB PO SCH (08:28)
[2018-11-24] MEDS: Enoxaparin Sodium 80 MG/0.8 ML SYRINGE SC SCH (08:29)
[2018-11-24] MEDS: Letrozole 2.5 MG TAB PO SCH (08:30)
[2018-11-24] MEDS ORDERED: Warfarin Sodium 1.25 MG HALF.TAB PO SCH (17:00)
--- NOTE | 2018-11-24 23:42 | DIS ---
DATE OF ADMISSION: 11/22/2018 DATE OF DISCHARGE: 11/24/2018 REASON FOR HOSPITALIZATION: TIA. SIGNIFICANT FINDINGS: The patient had MRI of the brain which was negative for acute intracranial pathology. PROCEDURES PERFORMED AND TREATMENTS RENDERED: The patient had a TIA workup, which was benign. The patient is seen by Cardiology, please see full consultation and progress notes for details. CONDITION ON DISCHARGE: Stable. SPECIFIC INSTRUCTIONS FOR THE PATIENT/FAMILY: 1. The patient is recommended to follow up with primary care physician in the next 5 to 7 days for further medical management. 2. The patient is to follow up with Cardiology in the next 1 to 2 weeks to discuss further options for oral anticoagulation. 3. The patient is to take all home medications as directed, to be re-evaluated by primary care physician and synchro assembler in the outpatient clinic. 4. The patient explicitly informed to return to acute care hospital immediately if signs or symptoms return, worsen, or any other new symptoms occur. HOME MEDICATIONS: Please see full home medication list for details with the following changes, the patient's carvedilol was increased to 25 mg p.o. b.i.d. by Cardiology. HISTORY OF PRESENT ILLNESS: Ms. Rincon is a pleasant 83-year-old white female who presented to [facility] on 11/22/2018, with CVA symptoms. The patient admitted to medical unit with telemetry for further evaluation and treatment. The patient's symptoms did resolve in less than 24 hours. Being diagnosed with TIA. The patient had a MRI of the brain, please see full report for details, there is no acute intracranial process. The patient had echocardiogram, please see full report for details, preserved ejection fraction without significant valvular pathology. A long discussion was had with the patient, the patient's daughter, and synchro assembler discussing oral anticoagulation for the patient's chronic atrial fibrillation. The patient has had multiple TIAs, on Coumadin. The patient does follow up with the [facility]madin [facility] and has lab draws roughly once per month. However, the patient is noncompliant on her Coumadin specific diet and her readings do occasionally go low. Cardiology wanting to further discuss whether the patient is a candidate for Eliquis or Xarelto. The patient is a candidate for these medications; however, cost is a limiting factor and it was determined that the patient could not afford these medications at this time. The patient will further discuss oral anticoagulation strategies with her primary care physician and synchro assembler in the outpatient setting in the upcoming weeks. The patient recommended safe for discharge by Cardiology when INR is therapeutic. The patient was in therapeutic INR on 11/24/2018. The patient recommended safe for discharge with close followup in the outpatient setting with the following physicians. The patient is recommended to follow up with primary care physician in the next 5 to 7 days. The patient is recommended to follow up with Cardiology in the next 1 to 2 weeks. The patient is recommended to take all medications as directed, to be re-evaluated by primary care physician. The patient is recommended to return to acute care hospital immediately if signs or symptoms return, worsen, or any other new symptoms occur. Greater than 35 minutes spent coordinating care and discharge process on this patient. Job ID: [id number]
--- NOTE | 2018-11-29 14:31 | EKG ---
Test Reason : Blood Pressure : / mmHG Vent. Rate : 068 BPM Atrial Rate : 058 BPM P-R Int : 000 ms QRS Dur : 158 ms QT Int : 460 ms P-R-T Axes : 000 -77 103 degrees QTc Int : 489 ms Ventricular-paced rhythm Abnormal ECG Confirmed by DANIELLA FENTON ([id number]), editor map YOUSIF CLAUDIO ([id number]) on 11/29/2018 2:31:32 PM Referred By: Confirmed By:DANIELLA FENTON
== END 2018-11-24 09:43 | disposition home or self-care (01) ==
LOC: ERS 15:41 → 2SE 17:01
PROVIDERS: ADMIT Internal Medicine; ATTEND Internal Medicine
DX: I65.21 Occlusion and stenosis of right carotid artery (principal); I48.1 Persistent atrial fibrillation; I49.5 Sick sinus syndrome; I12.9 Hypertensive chronic kidney disease with stage 1 through stage 4 chronic kidney disease, or unspecified chronic kidney disease; N18.3 Chronic kidney disease, stage 3 (moderate); D47.3 Essential (hemorrhagic) thrombocythemia; Z95.0 Presence of cardiac pacemaker; Z85.3 Personal history of malignant neoplasm of breast; Z79.82 Long term (current) use of aspirin; Z79.01 Long term (current) use of anticoagulants; Z79.899 Other long term (current) drug therapy; Z88.8 Allergy status to other drugs, medicaments and biological substances
CPT/HCPCS: 70450; 70496; 70498; 70551; 71045; 80048; 80053 ×3; 80061; 80162; 82550; 82607; 82746; 82962; 83735; 84484 ×2; 85025 ×3; 85610 ×4; 85730 ×3; 87324; 87449; 93005; 93306; 94760; 96361 ×2; 96372 ×3; 96374; 97116; 97139 ×3; 99291; G0378 ×4; 36415; 36416; J1650; J2405; Q9966

== ENCOUNTER 2019-02-26 08:17 | Outpatient (CLI) | payer MEDICARE, MEDICAID ==
--- NOTE | 2019-02-26 08:49 | MMO ---
Right Breast MAMMO Unilat Diag DDI RT+JUAN JOSÉ. CLINICAL HISTORY: Patient is 83 years old and is seen for diagnostic exam. The patient has no family history of breast cancer. 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 VIEWS: The views performed were: right craniocaudal with tomosynthesis; right mediolateral oblique with tomosynthesis; and right mediolateral with tomosynthesis. FILMS COMPARED: The present examination has been compared to prior imaging studies performed at [facility] on 10/12/2014, 10/24/2015, 11/15/2016 and 02/25/2018. This study has been interpreted with the assistance of computer-aided detection. MAMMOGRAM FINDINGS: There are scattered fibroglandular densities. There are vascular calcifications seen in the right breast. There are no suspicious masses, suspicious calcifications, or new areas of architectural distortion. IMPRESSION: A ROUTINE FOLLOW-UP MAMMOGRAM IN 1 YEAR IS RECOMMENDED. THE RESULTS OF THIS EXAM WERE SENT TO THE PATIENT. ACR BI-RADS Category 2 - Benign finding MAMMOGRAPHY NOTE: 1. A negative mammogram report should not delay a biopsy if a dominant of clinically suspicious mass is present. 2. Approximately 10% to 15% of breast cancers are not detected by mammography. 3. Adenosis and dense breasts may obscure an underlying neoplasm. Reported by: ROXIE BROWN MD Electonically Signed: [id number]
== END 2019-02-26 08:18 | disposition home or self-care (01) ==
LOC: BICMAMMO 08:17
PROVIDERS: ATTEND Specialist
DX: Z08 Encounter for follow-up examination after completed treatment for malignant neoplasm (principal); Z85.3 Personal history of malignant neoplasm of breast; Z90.12 Acquired absence of left breast and nipple
CPT/HCPCS: 77065; G0279

== ENCOUNTER 2020-03-02 08:11 | Outpatient (CLI) | payer MEDICARE, MEDICAID ==
--- NOTE | 2020-03-02 08:37 | MMO ---
Right Breast MAMMO Unilat Diag DDI RT+JUAN JOSÉ. CLINICAL HISTORY: Patient is 84 years old and is seen for diagnostic exam. The patient has no family history of breast cancer. 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 VIEWS: The views performed were: right craniocaudal with tomosynthesis; right mediolateral oblique with tomosynthesis; and right mediolateral with tomosynthesis. FILMS COMPARED: The present examination has been compared to prior imaging studies performed at [facility] on 10/24/2015, 11/15/2016, 02/25/2018 and 02/26/2019. This study has been interpreted with the assistance of computer-aided detection. MAMMOGRAM FINDINGS: There are scattered fibroglandular densities. There are benign appearing calcifications in the right breast. There are no suspicious masses, suspicious calcifications, or new areas of architectural distortion. IMPRESSION: THERE IS NO MAMMOGRAPHIC EVIDENCE OF MALIGNANCY. A ROUTINE FOLLOW-UP MAMMOGRAM IN 1 YEAR IS RECOMMENDED. THE RESULTS OF THIS EXAM WERE SENT TO THE PATIENT. ACR BI-RADS Category 2 - Benign finding MAMMOGRAPHY NOTE: 1. A negative mammogram report should not delay a biopsy if a dominant of clinically suspicious mass is present. 2. Approximately 10% to 15% of breast cancers are not detected by mammography. 3. Adenosis and dense breasts may obscure an underlying neoplasm. Reported by: ROBERT OBANDO MD Electonically Signed: [id number]
== END 2020-03-02 08:12 | disposition home or self-care (01) ==
LOC: BICMAMMO 08:11
PROVIDERS: ATTEND Specialist
DX: Z08 Encounter for follow-up examination after completed treatment for malignant neoplasm (principal); Z85.3 Personal history of malignant neoplasm of breast
CPT/HCPCS: 77065; G0279; 77066

== ENCOUNTER 2020-07-25 12:21 | Inpatient (IN) | payer MEDICARE, MEDICAID ==
[2020-07-25 13:17] LABS: #Basophils 0.1 thou/uL (0.0-0.2); #Eosinphils 0.3 thou/uL (0.0-0.7); #Lymphocytes 2.2 thou/uL (1.20-3.40); #Monocytes 0.9 thou/uL (0.11-0.59); %Basophils 1.1 % (0.0-1.0); %Eosinophils 2.9 % (0.0-10.0); %Lymphocytes 23.5 % (21.0-51.0); %Monocytes 9.4 % (0.0-10.0); %Neutrophils 63.2 % (42.0-75.0); Hemoglobin 14.7 g/dL (12.0-16.0); Mean Corpuscular HGB CONC 33.4 g/dL (32.0-36.0); Mean Corpuscular Hemoglobin 35.7 pg (27.0-31.0); Mean Platelet Volume 7.4 fL (7.4-10.4); Platelet Count 431 thou/uL (130-400); RBC Distribution Width 15.3 % (11.5-14.5); Red Blood Cell (RBC) Count 4.12 mill/uL (4.20-5.40); White Blood Cell (WBC) Count 9.4 thou/uL (4.8-10.8)
[2020-07-25 13:22] LABS: INR-International Normal Ratio 1.8
[2020-07-25 13:23] LABS: D-Dimer Test 0.5 *mcg/mL (0.27-0.43); PTT 48.2 sec (22.9-36.1)
[2020-07-25 13:38] LABS: ALT (SGPT) 21 U/L (8-55); AST (SGOT) 31 U/L (5-34); Albumin 4.3 g/dL (3.4-4.8); Alkaline Phosphatase 141 U/L (40-110); Anion Gap 17 mmol/L (10-20); BUN (Urea Nitrogen) 29 mg/dL (9.8-20.1); Bilirubin, Total 0.8 mg/dL (0.2-1.2); CK (CPK) 76 U/L (29-168); Calc. Creatinine Clearance 0 mL/min (70-130); Calcium 10.3 mg/dL (7.8-10.44); Carbon Dioxide 24 mmol/L (23-31); Chloride 101 mmol/L (98-107); Globulin 4.2 g/dL (2.4-3.5); Glucose 106 mg/dL (83-110); Lipase 43 U/L (8-78); Potassium 4.5 mmol/L (3.5-5.1); Protein, Total 8.5 g/dL (5.8-8.1); Sodium 137 mmol/L (136-145)
[2020-07-25] MEDS ORDERED: Calcium Carbonate 500 MG ChewTAB PO PRN (18:34)
[2020-07-25] MEDS ORDERED: Senokot S 8.6-50 MG TAB PO PRN (18:34)
[2020-07-25] MEDS ORDERED: Ondansetron PF 4 MG/2 ML Vial IVP PRN (18:34)
[2020-07-25] MEDS ORDERED: Guaifenesin DM 100-10/5 ML UDCUP PO PRN (18:34)
[2020-07-25] MEDS ORDERED: HYDROcodone/Acetaminophen 5/325 mg Tablet PO PRN (18:34)
[2020-07-25] MEDS ORDERED: Sodium Chloride 0.9% 1,000 ML IV SCH (18:34)
[2020-07-25] MEDS ORDERED: Bisacodyl 10 MG SUPP PR PRN (18:34)
[2020-07-25] MEDS ORDERED: Acetaminophen 325 MG TAB PO PRN (18:34)
[2020-07-25 19:15] LABS: Bacteria/HPF 2+ HPF (None Seen); Bilirubin Negative (Negative); Blood, Urine Trace (Negative); Clarity Turbid (Clear); Glucose, Urine (Dipstick) Normal (Negative); Ketone, Urine Negative (Negative); Leukocyte 500 Leu/uL (Negative); Nitrite 2+ (Negative); Protein, Urine (Dipstick) Negative (Neg-Trace); RBC/HPF 0-3 HPF (0-3); Specific Gravity, Urine 1.011 (1.002-1.036); Squamous Epithelial None Seen HPF (0-3); Urobilinogen Normal mg/dL (Less than 2); WBC/HPF Greater than 50 HPF (0-3); pH, Urine 5.5 (5.0-9.0)
[2020-07-25] MEDS ORDERED: Famotidine 20 MG TAB PO SCH (21:00)
[2020-07-25] MEDS ORDERED: Apixaban 5 MG TAB PO SCH (21:00)
[2020-07-25] MEDS ORDERED: Famotidine 20 MG TAB ONE (21:52)
[2020-07-25] MEDS ORDERED: Dextrose 50% Abboject 50 ML SYRINGE ONE (21:52)
[2020-07-25] MEDS ORDERED: Digoxin 0.125 MG TAB ONE (21:52)
[2020-07-25] MEDS: Digoxin 0.125 MG TAB PO SCH (21:59)
[2020-07-25] MEDS: Carvedilol 6.25 MG TAB PO SCH (21:59)
[2020-07-26 05:02] LABS: #Basophils 0.1 thou/uL (0.0-0.2); #Eosinphils 0.3 thou/uL (0.0-0.7); #Lymphocytes 2.4 thou/uL (1.20-3.40); #Monocytes 0.8 thou/uL (0.11-0.59); #Neutrophils 6.1 thou/uL (1.40-6.50); %Basophils 1.1 % (0.0-1.0); %Eosinophils 3.2 % (0.0-10.0); %Lymphocytes 24.3 % (21.0-51.0); %Monocytes 8.6 % (0.0-10.0); %Neutrophils 62.8 % (42.0-75.0); Hemoglobin 14.3 g/dL (12.0-16.0); Mean Corpuscular HGB CONC 32.6 g/dL (32.0-36.0); Mean Corpuscular Hemoglobin 35.2 pg (27.0-31.0); Mean Platelet Volume 7.4 fL (7.4-10.4); Platelet Count 390 thou/uL (130-400); RBC Distribution Width 15.2 % (11.5-14.5); Red Blood Cell (RBC) Count 4.07 mill/uL (4.20-5.40); White Blood Cell (WBC) Count 9.7 thou/uL (4.8-10.8)
[2020-07-26 05:22] LABS: Anion Gap 16 mmol/L (10-20); BUN (Urea Nitrogen) 26 mg/dL (9.8-20.1); Calc. Creatinine Clearance 34 mL/min (70-130); Calcium 9.5 mg/dL (7.8-10.44); Carbon Dioxide 20 mmol/L (23-31); Chloride 106 mmol/L (98-107); Glucose 86 mg/dL (83-110); Potassium 4.1 mmol/L (3.5-5.1); Sodium 138 mmol/L (136-145)
[2020-07-26] MEDS: Sodium Chloride 0.9% 1,000 ML IV SCH ×2 (06:30→21:12)
[2020-07-26] MEDS ORDERED: Aspirin Chewable 81 MG TAB ONE (08:32)
[2020-07-26] MEDS: Atorvastatin Calcium 20 MG TAB PO SCH (08:54)
[2020-07-26] MEDS: Carvedilol 6.25 MG TAB PO SCH ×2 (08:54→21:14)
[2020-07-26] MEDS: Allopurinol 100 MG TAB PO SCH (08:54)
[2020-07-26] MEDS: Aspirin 81 mg Enteric Coated Tablet PO SCH (08:54)
[2020-07-26] MEDS: Letrozole 2.5 MG TAB PO SCH (08:55)
[2020-07-26] MEDS: Hydroxyurea 500 MG CAP PO SCH (08:55)
[2020-07-26 12:24] VITALS: BMI 27.8
[2020-07-26] MEDS ORDERED: Carvedilol 6.25 MG TAB PO SCH ×2 (12:39→12:45)
[2020-07-26] MEDS ORDERED: ADENOSINE 60 MG/20 ML VIAL ONE (12:40)
[2020-07-26] MEDS ORDERED: Famotidine 20 MG TAB PO SCH (21:00)
[2020-07-26] MEDS: Digoxin 0.125 MG TAB PO SCH (21:13)
[2020-07-26] MEDS: Apixaban 5 MG TAB PO SCH (21:15)
[2020-07-27] MEDS: Aspirin 81 mg Enteric Coated Tablet PO SCH (09:35)
[2020-07-27] MEDS: Allopurinol 100 MG TAB PO SCH (09:35)
[2020-07-27] MEDS: Hydroxyurea 500 MG CAP PO SCH (09:36)
[2020-07-27] MEDS: Atorvastatin Calcium 20 MG TAB PO SCH (09:36)
[2020-07-27] MEDS: Letrozole 2.5 MG TAB PO SCH (09:37)
[2020-07-27] MEDS: Apixaban 5 MG TAB PO SCH (09:38)
[2020-07-27] MEDS: Carvedilol 6.25 MG TAB PO SCH (09:38)
[2020-07-27] MEDS: Sodium Chloride 0.9% 1,000 ML IV SCH (09:41)
[2020-07-27 16:23] VITALS: BP 129/60; TEMP 97.5
== END 2020-07-27 17:05 | disposition home or self-care (01) | DRG 683 ==
LOC: ERS 12:21 → 2SW 14:00 → ERHOLD 14:18 → 2SW 07-26 11:32 → OBSVTOIN 07-27 15:21
PROVIDERS: ADMIT Internal Medicine; ATTEND Hospitalist
DX: N17.9 Acute kidney failure, unspecified (principal); I48.20 Chronic atrial fibrillation, unspecified; E86.0 Dehydration; R07.9 Chest pain, unspecified; I08.3 Combined rheumatic disorders of mitral, aortic and tricuspid valves; E78.5 Hyperlipidemia, unspecified; I10 Essential (primary) hypertension; Z85.3 Personal history of malignant neoplasm of breast; Z95.0 Presence of cardiac pacemaker; Z79.01 Long term (current) use of anticoagulants; Z79.899 Other long term (current) drug therapy
CPT/HCPCS: 36415; 71045; 78452; 80048; 80053; 81003; 81015; 82550; 83690; 83880; 84484; 85025; 85379; 85610; 85730; 93005; 93017; 93306; A9500; G0378; J0153

== ENCOUNTER 2022-01-21 17:50 | Emergency (ER) | payer MEDICARE, MEDICAID ==
[~2022-01-21 17:50] MED LIST changes: -Iopamidol 370 76% 100 ML VIAL ONE; +Iopamidol-370 76% 500 ML 1 ML ONE
[2022-01-21 18:41] LABS: #Basophils 0.1 thou/uL (0.0-0.2); #Eosinphils 0.2 thou/uL (0.0-0.7); #Lymphocytes 1.4 thou/uL (1.20-3.40); #Monocytes 0.6 thou/uL (0.11-0.59); %Basophils 0.9 % (0.0-1.0); %Eosinophils 1.9 % (0.0-10.0); %Lymphocytes 15.2 % (21.0-51.0); %Monocytes 6.4 % (0.0-10.0); %Neutrophils 75.5 % (42.0-75.0); Hemoglobin 12.6 g/dL (12.0-16.0); Mean Corpuscular HGB CONC 34.1 g/dL (32.0-36.0); Mean Platelet Volume 7.7 fL (7.4-10.4); Platelet Count 421 thou/uL (130-400); RBC Distribution Width 14.8 % (11.5-14.5); Red Blood Cell (RBC) Count 3.23 mill/uL (4.20-5.40); White Blood Cell (WBC) Count 9.2 thou/uL (4.8-10.8)
[2022-01-21 18:52] LABS: ALT (SGPT) 16 U/L (8-55); AST (SGOT) 20 U/L (5-34); Albumin 4.4 g/dL (3.4-4.8); Alkaline Phosphatase 97 U/L (40-110); Anion Gap 16 mmol/L (10-20); BUN (Urea Nitrogen) 23 mg/dL (9.8-20.1); Bilirubin, Total 1.3 mg/dL (0.2-1.2); Calc. Creatinine Clearance 0 mL/min (70-130); Carbon Dioxide 23 mmol/L (23-31); Chloride 103 mmol/L (98-107); Estimated GFR 36; Globulin 3.3 g/dL (2.4-3.5); Glucose 165 mg/dL (83-110); Lipase 15 U/L (8-78); Potassium 4.6 mmol/L (3.5-5.1); Protein, Total 7.7 g/dL (5.8-8.1); Sodium 137 mmol/L (136-145)
[2022-01-21 18:58] LABS: Bacteria/HPF 4+ HPF (None Seen); Bilirubin Negative (Negative); Blood, Urine 2+ (Negative); Clarity Extra Turbid (Clear); Glucose, Urine (Dipstick) Normal (Negative); Ketone, Urine Negative (Negative); Leukocyte 500 Leu/uL (Negative); Nitrite 2+ (Negative); Protein, Urine (Dipstick) 70 mg/dL (Neg-Trace); RBC/HPF 21-50 HPF (0-3); Specific Gravity, Urine 1.025 (1.002-1.036); Transitional Epithelial 0-3 HPF (None Seen); Urobilinogen Normal mg/dL (Less than 2); WBC/HPF Greater than 50 HPF (0-3); pH, Urine 5.5 (5.0-9.0)
== END 2022-01-21 20:51 | disposition home or self-care (01) ==
LOC: ERS 17:50
DX: N39.0 Urinary tract infection, site not specified (principal); I10 Essential (primary) hypertension; I48.91 Unspecified atrial fibrillation; Z86.73 Personal history of transient ischemic attack (TIA), and cerebral infarction without residual deficits; Z79.01 Long term (current) use of anticoagulants; Z79.899 Other long term (current) drug therapy
CPT/HCPCS: 74177; 80053; 81003; 81015; 83690; 84484; 85025; 87077; 87086; 87186; 93005; Q9967

== ENCOUNTER 2022-06-03 06:51 | Emergency (ER) | payer MEDICARE, MEDICAID ==
[2022-06-03] MEDS ORDERED: Acetaminophen 325 MG TAB ONE (07:34)
[2022-06-03 08:25] LABS: #Basophils 0.1 thou/uL (0.0-0.2); #Eosinphils 0.1 thou/uL (0.0-0.7); #Lymphocytes 1.4 thou/uL (1.20-3.40); #Monocytes 0.8 thou/uL (0.11-0.59); #Neutrophils 8.1 thou/uL (1.40-6.50); %Basophils 0.9 % (0.0-1.0); %Eosinophils 1.4 % (0.0-10.0); %Lymphocytes 12.9 % (21.0-51.0); %Monocytes 7.6 % (0.0-10.0); %Neutrophils 77.3 % (42.0-75.0); Hemoglobin 12.9 g/dL (12.0-16.0); Mean Corpuscular HGB CONC 33.2 g/dL (32.0-36.0); Mean Corpuscular Hemoglobin 36.6 pg (27.0-31.0); Mean Platelet Volume 7.6 fL (7.4-10.4); Platelet Count 337 10x3/uL (130-400); RBC Distribution Width 17.3 % (11.5-14.5); Red Blood Cell (RBC) Count 3.54 mill/uL (4.20-5.40); White Blood Cell (WBC) Count 10.5 10x3/uL (4.8-10.8)
[2022-06-03 08:36] LABS: Bacteria/HPF None Seen HPF (None Seen); Bilirubin Negative (Negative); Blood, Urine Trace (Negative); Clarity Turbid (Clear); Glucose, Urine (Dipstick) Normal (Negative); Ketone, Urine Negative (Negative); Leukocyte 500 Leu/uL (Negative); Mucous/LPF Rare LPF (<2+); Nitrite Negative (Negative); Protein, Urine (Dipstick) Negative (Neg-Trace); RBC/HPF 0-3 HPF (0-3); Renal Epithelial 0-3 HPF (None Seen); Specific Gravity, Urine 1.019 (1.002-1.036); Urobilinogen Normal mg/dL (Less than 2); WBC/HPF 21-50 HPF (0-3)
[2022-06-03 08:47] LABS: Calcium 9.7 mg/dL (7.8-10.44); Chloride 106 mmol/L (98-107); Potassium 4.3 mmol/L (3.5-5.1); Sodium 135 mmol/L (136-145)
[2022-06-03 08:48] LABS: Globulin 3.2 g/dL (2.4-3.5); Glucose 97 mg/dL (83-110); Protein, Total 7.2 g/dL (5.8-8.1)
[2022-06-03 08:50] LABS: Anion Gap 15 mmol/L (10-20); Bilirubin, Total 1.6 mg/dL (0.2-1.2); Carbon Dioxide 18 mmol/L (23-31)
[2022-06-03] MEDS ORDERED: cefTRIAXone\\ROCEPHIN 1 GM VIAL ONE (08:50)
[2022-06-03] MEDS ORDERED: Lidocaine 1% MPF 2 ML VIAL ONE (08:50)
[2022-06-03 08:51] LABS: Alkaline Phosphatase 93 U/L (40-110); Calc. Creatinine Clearance 0 mL/min (70-130); Estimated GFR 60
[2022-06-03 08:52] LABS: BUN (Urea Nitrogen) 23 mg/dL (9.8-20.1)
[2022-06-03 08:53] LABS: AST (SGOT) 26 U/L (5-34)
[2022-06-03 08:54] LABS: ALT (SGPT) 20 U/L (8-55); Lipase 30 U/L (8-78)
== END 2022-06-03 09:33 | disposition home or self-care (01) ==
LOC: ERS 06:51
DX: N39.0 Urinary tract infection, site not specified (principal); E86.0 Dehydration; I10 Essential (primary) hypertension; Z79.01 Long term (current) use of anticoagulants
CPT/HCPCS: 36415; 51701; 74176; 80053; 81003; 81015; 83690; 85025; 87086; 93005; 96372; J0696

== ENCOUNTER 2022-07-24 10:37 | Outpatient (CLI) | payer MEDICARE, MEDICAID ==
[2022-07-24] MEDS ORDERED: Iopamidol 370 76% 100 ML VIAL ONE (14:50)
== END 2022-07-24 10:38 | disposition home or self-care (01) ==
LOC: NM 10:37
PROVIDERS: ATTEND Internal Medicine Hematology & Oncology
DX: C50.412 Malignant neoplasm of upper-outer quadrant of left female breast (principal); D45 Polycythemia vera; M54.59 Other low back pain; R63.4 Abnormal weight loss
CPT/HCPCS: 71260; 78306; 82565; A9503

== ENCOUNTER 2022-11-16 14:02 | Inpatient (IN) | payer MEDICARE, MEDICAID ==
[2022-11-16] MEDS ORDERED: Iopamidol-370 76% 500 ML MDV (1 ML CHARGE) ONE (14:17)
[2022-11-16 14:31] LABS: #Basophils 0.1 thou/uL (0.0-0.2); #Eosinphils 0.3 thou/uL (0.0-0.7); #Monocytes 0.6 thou/uL (0.11-0.59); #Neutrophils 5.9 thou/uL (1.40-6.50); %Basophils 1.4 % (0.0-1.0); %Eosinophils 3.1 % (0.0-10.0); %Lymphocytes 16.9 % (21.0-51.0); %Monocytes 7.7 % (0.0-10.0); %Neutrophils 70.5 % (42.0-75.0); Hematocrit 41.5 % (36.0-47.0); Hemoglobin 13.6 g/dL (12.0-16.0); Mean Corpuscular HGB CONC 32.8 g/dL (32.0-36.0); Mean Corpuscular Hemoglobin 32.9 pg (27.0-31.0); Mean Corpuscular Volume 100.2 fl (78.0-98.0); Mean Platelet Volume 9.9 fL (7.4-10.4); Platelet Count 531 10x3/uL (130-400); RBC Distribution Width 15.8 % (11.5-14.5); Red Blood Cell (RBC) Count 4.14 mill/uL (4.20-5.40); White Blood Cell (WBC) Count 8.3 10x3/uL (4.8-10.8)
[2022-11-16] MEDS ORDERED: Nitroglycerin 0.4 MG TAB 1 EACH ONE (14:36)
[2022-11-16] MEDS ORDERED: Aspirin Chewable 81 MG TAB ONE (14:36)
[2022-11-16 14:57] LABS: ALT (SGPT) 17 U/L (8-55); AST (SGOT) 22 U/L (5-34); Alkaline Phosphatase 102 U/L (40-110); Anion Gap 14 mmol/L (10-20); BUN (Urea Nitrogen) 28 mg/dL (9.8-20.1); Bilirubin, Total 1.2 mg/dL (0.2-1.2); Calc. Creatinine Clearance 0 mL/min (70-130); Calcium 9.7 mg/dL (7.8-10.44); Carbon Dioxide 20 mmol/L (23-31); Chloride 110 mmol/L (98-107); Estimated GFR 43; Globulin 3.3 g/dL (2.4-3.5); Glucose 130 mg/dL (83-110); Potassium 3.9 mmol/L (3.5-5.1); Protein, Total 7.3 g/dL (5.8-8.1); Sodium 140 mmol/L (136-145)
[2022-11-16 15:01] LABS: Troponin I 0.013 ng/mL (< 0.028)
[2022-11-16] MEDS ORDERED: Nitroglycerin 2% Ointment 1 INCH/1 GM Packet ONE (15:50)
[2022-11-16] MEDS ORDERED: Bisacodyl 5 MG TAB PO PRN (19:28)
[2022-11-16] MEDS ORDERED: Senokot S 8.6-50 MG TAB PO PRN (19:28)
[2022-11-16] MEDS ORDERED: Acetaminophen 325 MG TAB PO PRN (19:28)
[2022-11-16] MEDS ORDERED: Bisacodyl 10 MG SUPP PR PRN (19:28)
[2022-11-16] MEDS ORDERED: Furosemide 40 MG/4 ML VIAL SLOW IVP SCH (19:45)
[2022-11-16 19:55] LABS: Troponin I 0.017 ng/mL (< 0.028)
[2022-11-16 21:03] LABS: Bilirubin Negative (Negative); Blood, Urine Trace (Negative); CAUTI Indications for Culture Pelvic or flank pain; Clarity Clear (Clear); Glucose, Urine (Dipstick) Normal (Negative); Ketone, Urine Negative (Negative); Leukocyte 500 Leu/uL (Negative); Nitrite Negative (Negative); Protein, Urine (Dipstick) 20 mg/dL (Neg-Trace); Urobilinogen Normal mg/dL (Less than 2); WBC/HPF 21-50 HPF (0-3); pH, Urine 5.5 (5.0-9.0)
[2022-11-16 21:04] LABS: Bacteria/HPF 1+ HPF (None Seen); Specific Gravity, Urine 1.051 (1.002-1.036)
[2022-11-16 21:05] LABS: Urine Culture Reflex Yes Yes
[2022-11-16] MEDS: Carvedilol 6.25 MG TAB PO SCH (21:37)
[2022-11-16] MEDS: Digoxin 0.125 MG TAB PO SCH (21:38)
[2022-11-16] MEDS: Apixaban 5 MG TAB PO SCH (21:38)
[2022-11-16 21:47] VITALS: BMI 24.0
[2022-11-16 23:12] LABS: Troponin I 0.016 ng/mL (< 0.028)
[2022-11-17 06:18] LABS: #Basophils 0.2 thou/uL (0.0-0.2); #Eosinphils 0.3 thou/uL (0.0-0.7); #Neutrophils 6.9 thou/uL (1.40-6.50); %Basophils 1.6 % (0.0-1.0); %Eosinophils 3.6 % (0.0-10.0); %Lymphocytes 12.1 % (21.0-51.0); %Neutrophils 72.5 % (42.0-75.0); Hematocrit 45.2 % (36.0-47.0); Mean Corpuscular HGB CONC 33.2 g/dL (32.0-36.0); Mean Corpuscular Hemoglobin 32.7 pg (27.0-31.0); Mean Corpuscular Volume 98.5 fl (78.0-98.0); Platelet Count 553 10x3/uL (130-400); RBC Distribution Width 15.8 % (11.5-14.5); Red Blood Cell (RBC) Count 4.59 mill/uL (4.20-5.40); White Blood Cell (WBC) Count 9.5 10x3/uL (4.8-10.8)
[2022-11-17 06:38] LABS: Anion Gap 16 mmol/L (10-20); BUN (Urea Nitrogen) 26 mg/dL (9.8-20.1); Calc. Creatinine Clearance 31 mL/min (70-130); Calcium 9.9 mg/dL (7.8-10.44); Carbon Dioxide 24 mmol/L (23-31); Chloride 103 mmol/L (98-107); Estimated GFR 41; Glucose 90 mg/dL (83-110); Potassium 3.5 mmol/L (3.5-5.1); Sodium 139 mmol/L (136-145)
[2022-11-17] MEDS: Furosemide 40 MG/4 ML VIAL SLOW IVP SCH ×2 (06:50→14:48)
[2022-11-17] MEDS: Glimepiride 2 MG TAB PO SCH (09:10)
[2022-11-17] MEDS: Losartan 25 MG TAB PO SCH (09:10)
[2022-11-17] MEDS: Apixaban 5 MG TAB PO SCH ×2 (09:10→22:10)
[2022-11-17] MEDS: Letrozole 2.5 MG TAB PO SCH (09:10)
[2022-11-17] MEDS: Atorvastatin Calcium 20 MG TAB PO SCH (09:10)
[2022-11-17] MEDS: Allopurinol 100 MG TAB PO SCH (09:10)
[2022-11-17] MEDS: Hydroxyurea 500 MG CAP PO SCH (09:10)
[2022-11-17] MEDS: Carvedilol 6.25 MG TAB PO SCH ×2 (09:11→22:11)
[2022-11-17] MEDS: Digoxin 0.125 MG TAB PO SCH (22:11)
[2022-11-18 05:16] LABS: #Basophils 0.2 thou/uL (0.0-0.2); #Eosinphils 0.4 thou/uL (0.0-0.7); #Monocytes 0.8 thou/uL (0.11-0.59); #Neutrophils 6.2 thou/uL (1.40-6.50); %Basophils 1.9 % (0.0-1.0); %Eosinophils 4.2 % (0.0-10.0); %Lymphocytes 13.3 % (21.0-51.0); %Monocytes 9.2 % (0.0-10.0); %Neutrophils 71.2 % (42.0-75.0); Hematocrit 46.5 % (36.0-47.0); Hemoglobin 15.3 g/dL (12.0-16.0); Mean Corpuscular HGB CONC 32.9 g/dL (32.0-36.0); Mean Corpuscular Hemoglobin 32.6 pg (27.0-31.0); Mean Corpuscular Volume 99.1 fl (78.0-98.0); Mean Platelet Volume 9.9 fL (7.4-10.4); Platelet Count 527 10x3/uL (130-400); RBC Distribution Width 15.9 % (11.5-14.5); Red Blood Cell (RBC) Count 4.69 mill/uL (4.20-5.40); White Blood Cell (WBC) Count 8.7 10x3/uL (4.8-10.8)
[2022-11-18 05:41] LABS: Anion Gap 14 mmol/L (10-20); BUN (Urea Nitrogen) 39 mg/dL (9.8-20.1); Calc. Creatinine Clearance 24 mL/min (70-130); Calcium 9.3 mg/dL (7.8-10.44); Carbon Dioxide 23 mmol/L (23-31); Chloride 103 mmol/L (98-107); Estimated GFR 30; Glucose 81 mg/dL (83-110); Potassium 3.4 mmol/L (3.5-5.1); Sodium 137 mmol/L (136-145)
[2022-11-18] MEDS: Glimepiride 2 MG TAB PO SCH (07:52)
[2022-11-18] MEDS: Hydroxyurea 500 MG CAP PO SCH (07:52)
[2022-11-18] MEDS: Atorvastatin Calcium 20 MG TAB PO SCH (07:52)
[2022-11-18] MEDS: Allopurinol 100 MG TAB PO SCH (07:52)
[2022-11-18] MEDS: Losartan 25 MG TAB PO SCH (07:52)
[2022-11-18] MEDS: Letrozole 2.5 MG TAB PO SCH (07:53)
[2022-11-18] MEDS: Apixaban 5 MG TAB PO SCH (07:53)
[2022-11-18] MEDS ORDERED: Furosemide 40 MG/4 ML VIAL SLOW IVP SCH (09:00)
[2022-11-18] MEDS ORDERED: Regadenoson 0.4 MG/5 ML SYRINGE ONE (11:21)
[2022-11-18] MEDS: Carvedilol 6.25 MG TAB PO SCH ×2 (13:17→20:26)
[2022-11-18] MEDS ORDERED: Dicyclomine 10 MG CAP PO PRN (16:53)
[2022-11-18] MEDS: Digoxin 0.125 MG TAB PO SCH (20:25)
[2022-11-18] MEDS: Apixaban 2.5 MG TAB PO SCH (20:26)
[2022-11-19 04:45] LABS: #Basophils 0.1 thou/uL (0.0-0.2); #Eosinphils 0.3 thou/uL (0.0-0.7); #Monocytes 0.8 thou/uL (0.11-0.59); #Neutrophils 6.3 thou/uL (1.40-6.50); %Basophils 1.6 % (0.0-1.0); %Eosinophils 3.4 % (0.0-10.0); %Lymphocytes 14.9 % (21.0-51.0); %Monocytes 8.5 % (0.0-10.0); %Neutrophils 71.4 % (42.0-75.0); Hematocrit 47.8 % (36.0-47.0); Hemoglobin 15.3 g/dL (12.0-16.0); Mean Corpuscular Hemoglobin 32.6 pg (27.0-31.0); Mean Corpuscular Volume 101.9 fl (78.0-98.0); Platelet Count 539 10x3/uL (130-400); Red Blood Cell (RBC) Count 4.69 mill/uL (4.20-5.40); White Blood Cell (WBC) Count 8.8 10x3/uL (4.8-10.8)
[2022-11-19 05:05] LABS: Anion Gap 16 mmol/L (10-20); BUN (Urea Nitrogen) 54 mg/dL (9.8-20.1); Calc. Creatinine Clearance 19 mL/min (70-130); Calcium 9.3 mg/dL (7.8-10.44); Carbon Dioxide 21 mmol/L (23-31); Chloride 103 mmol/L (98-107); Estimated GFR 22; Glucose 84 mg/dL (83-110); Potassium 3.6 mmol/L (3.5-5.1); Sodium 136 mmol/L (136-145)
[2022-11-19] MEDS ORDERED: Furosemide 40 MG TAB PO SCH (09:00)
[2022-11-19] MEDS: Glimepiride 2 MG TAB PO SCH (09:42)
[2022-11-19] MEDS: Carvedilol 6.25 MG TAB PO SCH (09:42)
[2022-11-19] MEDS: Allopurinol 100 MG TAB PO SCH (09:42)
[2022-11-19] MEDS: Atorvastatin Calcium 20 MG TAB PO SCH (09:42)
[2022-11-19] MEDS: Apixaban 2.5 MG TAB PO SCH (09:42)
[2022-11-19] MEDS: Letrozole 2.5 MG TAB PO SCH (09:43)
[2022-11-19] MEDS: Hydroxyurea 500 MG CAP PO SCH (09:43)
[2022-11-19] MEDS: Losartan 25 MG TAB PO SCH (09:43)
[2022-11-19 11:48] VITALS: TEMP 97.8
[2022-11-19 12:33] VITALS: BP 133/65
== END 2022-11-19 13:11 | disposition home or self-care (01) | DRG 445 ==
LOC: ERS 14:02 → 2SW 19:12
PROVIDERS: ADMIT Hospitalist; ATTEND Emergency Medicine
DX: K80.20 Calculus of gallbladder without cholecystitis without obstruction (principal); I48.20 Chronic atrial fibrillation, unspecified; I49.5 Sick sinus syndrome; D75.1 Secondary polycythemia; D69.6 Thrombocytopenia, unspecified; I37.1 Nonrheumatic pulmonary valve insufficiency; I48.0 Paroxysmal atrial fibrillation; I07.0 Rheumatic tricuspid stenosis; I11.0 Hypertensive heart disease with heart failure; F03.90 Unspecified dementia, unspecified severity, without behavioral disturbance, psychotic disturbance, mood disturbance, and anxiety; I50.811 Acute right heart failure; R07.89 Other chest pain; Z86.73 Personal history of transient ischemic attack (TIA), and cerebral infarction without residual deficits; Z85.3 Personal history of malignant neoplasm of breast; Z95.0 Presence of cardiac pacemaker; Z79.01 Long term (current) use of anticoagulants; Z79.899 Other long term (current) drug therapy
CPT/HCPCS: 36415; 36416; 71045; 71275; 72191; 74174; 76705; 78452; 80048; 80053; 81001; 82607; 83690; 83880; 84484; 85025; 87086; 93005; 93017; 93306; A9500; J1940; J2785; Q9967

== ENCOUNTER 2024-01-02 08:41 | Emergency (ER) | payer MEDICARE, MEDICAID ==
[2024-01-02] MEDS ORDERED: Furosemide 40 MG (4 mL) VIAL ONE (09:18)
[2024-01-02 09:35] LABS: #Basophils 0.21 10x3/uL (0.0-0.2); %Basophils 2.7 % (0.0-1.0); %Eosinophils 4.4 % (0.0-10.0); %Lymphocytes 16.2 % (21.0-51.0); %Monocytes 7.5 % (0.0-10.0); %Neutrophils 69.1 % (42.0-75.0); Hematocrit 49.8 % (36.0-47.0); Hemoglobin 16.3 g/dL (12.0-16.0); Mean Corpuscular HGB CONC 32.7 g/dL (32.0-36.0); Mean Corpuscular Hemoglobin 31.7 pg (27.0-31.0); Mean Corpuscular Volume 96.9 fL (78.0-98.0); Mean Platelet Volume 9.8 fL (7.4-10.4); Platelet Count 698 10x3/uL (130-400); Red Blood Cell (RBC) Count 5.14 mill/uL (4.20-5.40)
[2024-01-02 10:12] LABS: Troponin I 0.026 ng/mL (< 0.028)
[2024-01-02 10:34] LABS: Chloride 104 mmol/L (98-107); Potassium 4.8 mmol/L (3.5-5.1); Sodium 138 mmol/L (136-145)
[2024-01-02 10:35] LABS: Calcium 10.1 mg/dL (7.8-10.44); Glucose 106 mg/dL (83-110)
[2024-01-02 10:36] LABS: Globulin 3.6 g/dL (2.4-3.5); Protein, Total 7.6 g/dL (5.8-8.1)
[2024-01-02 10:37] LABS: Anion Gap 15 mmol/L (10-20); Carbon Dioxide 24 mmol/L (23-31)
[2024-01-02 10:38] LABS: Alkaline Phosphatase 112 U/L (40-110); Bilirubin, Total 1.4 mg/dL (0.2-1.2)
[2024-01-02 10:39] LABS: Calc. Creatinine Clearance 0 mL/min (70-130); Estimated GFR 35
[2024-01-02 10:40] LABS: BUN (Urea Nitrogen) 27 mg/dL (9.8-20.1)
[2024-01-02 10:41] LABS: ALT (SGPT) 16 U/L (8-55); AST (SGOT) 27 U/L (5-34)
[2024-01-02 11:28] LABS: Bacteria/HPF None Seen HPF (None Seen); Bilirubin Negative (Negative); Blood, Urine 2+ (Negative); CAUTI Indications for Culture Alt mental st,lethar; Clarity Clear (Clear); Glucose, Urine (Dipstick) Normal (Negative); Ketone, Urine Negative (Negative); Leukocyte Negative Leu/uL (Negative); Nitrite Negative (Negative); Protein, Urine (Dipstick) Negative (Neg-Trace); RBC/HPF 21-50 HPF (0-3); Specific Gravity, Urine 1.008 (1.002-1.036); Squamous Epithelial None Seen HPF (0-3); Urobilinogen Normal mg/dL (Less than 2); pH, Urine 6.5 (5.0-9.0)
[2024-01-02 11:30] LABS: Urine Culture Reflex No No
[2024-01-02] MEDS ORDERED: Iopamidol-370 76% 500 ML MDV (1 ML CHARGE) ONE (11:53)
== END 2024-01-02 13:22 | disposition home or self-care (01) ==
LOC: ERS 08:41
DX: R60.0 Localized edema (principal); R33.9 Retention of urine, unspecified; I48.91 Unspecified atrial fibrillation; I12.9 Hypertensive chronic kidney disease with stage 1 through stage 4 chronic kidney disease, or unspecified chronic kidney disease; N18.9 Chronic kidney disease, unspecified; Z79.01 Long term (current) use of anticoagulants; Z79.899 Other long term (current) drug therapy
CPT/HCPCS: 71045; 74176; 80053; 81001; 83880; 84484; 85025; 93005; 93970; J1940; Q9967; 51702; 96374

== ENCOUNTER 2024-01-29 10:40 | Inpatient (IN) | payer MEDICARE, MEDICAID ==
[2024-01-29 11:57] LABS: #Basophils 0.15 10x3/uL (0.0-0.2); %Basophils 1.7 % (0.0-1.0); %Eosinophils 0.7 % (0.0-10.0); %Lymphocytes 10.8 % (21.0-51.0); %Monocytes 6.3 % (0.0-10.0); %Neutrophils 80.4 % (42.0-75.0); Hematocrit 50.2 % (36.0-47.0); Hemoglobin 16.9 g/dL (12.0-16.0); Mean Corpuscular HGB CONC 33.7 g/dL (32.0-36.0); Mean Corpuscular Hemoglobin 31.2 pg (27.0-31.0); Mean Corpuscular Volume 92.8 fL (78.0-98.0); Mean Platelet Volume 10.4 fL (7.4-10.4); Platelet Count 368 10x3/uL (130-400); RBC Distribution Width 17.8 % (11.5-14.5); Red Blood Cell (RBC) Count 5.41 mill/uL (4.20-5.40)
[2024-01-29 12:18] LABS: Bacteria/HPF 4+ HPF (None Seen); Bilirubin Negative (Negative); Blood, Urine Negative (Negative); CAUTI Indications for Culture Pelvic or flank pain; Clarity Turbid (Clear); Glucose, Urine (Dipstick) Normal (Negative); Ketone, Urine Negative (Negative); Leukocyte 500 Leu/uL (Negative); Nitrite 1+ (Negative); Protein, Urine (Dipstick) Negative (Neg-Trace); Specific Gravity, Urine 1.006 (1.002-1.036); Urobilinogen Normal mg/dL (Less than 2); WBC/HPF Greater than 50 HPF (0-3)
[2024-01-29 12:19] LABS: Transitional Epithelial 0-3 HPF (None Seen)
[2024-01-29 12:20] LABS: ALT (SGPT) 13 U/L (8-55); AST (SGOT) 24 U/L (5-34); Alkaline Phosphatase 92 U/L (40-110); Anion Gap 19 mmol/L (10-20); BUN (Urea Nitrogen) 61 mg/dL (9.8-20.1); Bilirubin, Total 1.8 mg/dL (0.2-1.2); Calc. Creatinine Clearance 0 mL/min (70-130); Calcium 10.2 mg/dL (7.8-10.44); Carbon Dioxide 27 mmol/L (23-31); Chloride 100 mmol/L (98-107); Estimated GFR 17; Glucose 108 mg/dL (83-110); Potassium 3.8 mmol/L (3.5-5.1); Sodium 142 mmol/L (136-145)
[2024-01-29 12:20] LABS: Urine Culture Reflex Yes Yes
[2024-01-29 12:23] LABS: Troponin I 0.107 ng/mL (< 0.028)
[2024-01-29] MEDS ORDERED: Sodium Chloride 0.9% 100 ML ONE (14:35)
[2024-01-29] MEDS ORDERED: cefTRIAXone (ROCEPHIN) 2 GM VIAL ONE (14:35)
[2024-01-29] MEDS ORDERED: Aspirin Chewable 81 MG TAB ONE (14:35)
[2024-01-29 14:46] VITALS: BMI 22.8
[2024-01-29 15:08] LABS: Troponin I 0.073 ng/mL (< 0.028)
[2024-01-29] MEDS ORDERED: Acetaminophen 325 MG TAB PO PRN (16:35)
[2024-01-29] MEDS ORDERED: Ondansetron PF 4 MG/2 ML Vial IVP PRN (16:35)
[2024-01-29] MEDS ORDERED: Acetaminophen 650 MG Suppository PR PRN (16:35)
[2024-01-29] MEDS ORDERED: Ondansetron ODT 4 MG TAB PO PRN (16:35)
[2024-01-29] MEDS: Sodium Chloride 0.9% 1,000 ML IV SCH (17:57)
[2024-01-29 20:00] LABS: Troponin I 0.102 ng/mL (< 0.028)
[2024-01-30 06:45] LABS: #Basophils 0.21 10x3/uL (0.0-0.2); %Basophils 2.3 % (0.0-1.0); %Eosinophils 0.9 % (0.0-10.0); %Lymphocytes 11.6 % (21.0-51.0); %Monocytes 7.3 % (0.0-10.0); %Neutrophils 77.5 % (42.0-75.0); Hematocrit 50.6 % (36.0-47.0); Hemoglobin 15.9 g/dL (12.0-16.0); Mean Corpuscular HGB CONC 31.4 g/dL (32.0-36.0); Mean Corpuscular Hemoglobin 31.1 pg (27.0-31.0); Mean Platelet Volume 10.1 fL (7.4-10.4); Platelet Count 342 10x3/uL (130-400); RBC Distribution Width 18.1 % (11.5-14.5); Red Blood Cell (RBC) Count 5.11 mill/uL (4.20-5.40)
[2024-01-30 07:10] LABS: Anion Gap 20 mmol/L (10-20); BUN (Urea Nitrogen) 55 mg/dL (9.8-20.1); Calc. Creatinine Clearance 17 mL/min (70-130); Calcium 9.6 mg/dL (7.8-10.44); Carbon Dioxide 20 mmol/L (23-31); Chloride 107 mmol/L (98-107); Estimated GFR 24; Glucose 84 mg/dL (83-110); Potassium 3.5 mmol/L (3.5-5.1); Sodium 143 mmol/L (136-145)
[2024-01-30] MEDS ORDERED: Glycerin Adult Supp. (12 ct jar) PR PRN (10:48)
[2024-01-30] MEDS ORDERED: Polyethylene Glycol 3350 17 GM Packet PO PRN (10:48)
[2024-01-30] MEDS: Sodium Chloride 0.9% 1,000 ML IV SCH (13:45)
[2024-01-30] MEDS ORDERED: cefTRIAXone (ROCEPHIN) 1 GM VIAL ONE (13:48)
[2024-01-30] MEDS: cefTRIAXone\\ROCEPHIN 1 GM in Sodium Chloride 0.9% 100 ML IVPB SCH (13:56)
[2024-01-30] MEDS: Polyethylene Glycol 3350 17 GM Packet PO SCH (13:56)
[2024-01-30] MEDS: Letrozole 2.5 MG TAB PO SCH (15:13)
[2024-01-30] MEDS: Hydroxyurea 500 MG CAP PO SCH (15:13)
[2024-01-30] MEDS: Apixaban 2.5 MG TAB PO SCH (21:24)
[2024-01-31 05:19] LABS: #Basophils 0.12 10x3/uL (0.0-0.2); %Basophils 1.3 % (0.0-1.0); %Eosinophils 1.6 % (0.0-10.0); %Lymphocytes 14.1 % (21.0-51.0); %Monocytes 8.5 % (0.0-10.0); %Neutrophils 74.2 % (42.0-75.0); Hematocrit 44.3 % (36.0-47.0); Hemoglobin 14.6 g/dL (12.0-16.0); Mean Corpuscular Hemoglobin 31.1 pg (27.0-31.0); Mean Corpuscular Volume 94.3 fL (78.0-98.0); Mean Platelet Volume 10.4 fL (7.4-10.4); Platelet Count 316 10x3/uL (130-400); RBC Distribution Width 17.7 % (11.5-14.5)
[2024-01-31 05:32] LABS: Anion Gap 15 mmol/L (10-20); BUN (Urea Nitrogen) 49 mg/dL (9.8-20.1); Calc. Creatinine Clearance 23 mL/min (70-130); Calcium 9.1 mg/dL (7.8-10.44); Carbon Dioxide 23 mmol/L (23-31); Chloride 108 mmol/L (98-107); Estimated GFR 34; Glucose 114 mg/dL (83-110); Potassium 3.4 mmol/L (3.5-5.1); Sodium 143 mmol/L (136-145)
[2024-01-31] MEDS: Letrozole 2.5 MG TAB PO SCH (08:26)
[2024-01-31] MEDS: Hydroxyurea 500 MG CAP PO SCH (08:26)
[2024-01-31] MEDS: Azithromycin 250 MG TAB PO SCH (08:26)
[2024-01-31] MEDS: Polyethylene Glycol 3350 17 GM Packet PO SCH (08:26)
[2024-01-31] MEDS: Glycerin Adult Supp. (12 ct jar) PR SCH ×2 (09:37→22:04)
[2024-01-31] MEDS: Potassium Chloride 20 MEQ in Premix 1 BAG IVPB SCH ×2 (09:37→15:10)
[2024-02-01 05:09] LABS: #Basophils 0.14 10x3/uL (0.0-0.2); %Basophils 1.5 % (0.0-1.0); %Eosinophils 1.7 % (0.0-10.0); %Lymphocytes 14.6 % (21.0-51.0); %Monocytes 6.6 % (0.0-10.0); %Neutrophils 75.2 % (42.0-75.0); Hematocrit 45.3 % (36.0-47.0); Hemoglobin 14.8 g/dL (12.0-16.0); Mean Corpuscular HGB CONC 32.7 g/dL (32.0-36.0); Mean Corpuscular Hemoglobin 31.6 pg (27.0-31.0); Mean Corpuscular Volume 96.6 fL (78.0-98.0); Mean Platelet Volume 10.1 fL (7.4-10.4); Platelet Count 304 10x3/uL (130-400); Red Blood Cell (RBC) Count 4.69 mill/uL (4.20-5.40)
[2024-02-01 05:29] LABS: Anion Gap 13 mmol/L (10-20); BUN (Urea Nitrogen) 37 mg/dL (9.8-20.1); Calc. Creatinine Clearance 27 mL/min (70-130); Calcium 9.4 mg/dL (7.8-10.44); Carbon Dioxide 24 mmol/L (23-31); Chloride 109 mmol/L (98-107); Estimated GFR 40; Glucose 93 mg/dL (83-110); Potassium 3.8 mmol/L (3.5-5.1); Sodium 142 mmol/L (136-145)
[2024-02-01] MEDS: Bisacodyl 10 MG SUPP PR SCH (16:17)
[2024-02-01 16:28] VITALS: BP 146/71; TEMP 97.1
== END 2024-02-01 18:22 | disposition home or self-care (01) | DRG 683 ==
LOC: ERS 10:40 → ERHOLD 13:58 → OBSVTOIN 01-30 10:47 → 2NO 01-30 15:54
PROVIDERS: ADMIT Internal Medicine; ATTEND Hospitalist
DX: N17.9 Acute kidney failure, unspecified (principal); I5A Non-ischemic myocardial injury (non-traumatic); N39.0 Urinary tract infection, site not specified; N18.9 Chronic kidney disease, unspecified; I48.91 Unspecified atrial fibrillation; I12.9 Hypertensive chronic kidney disease with stage 1 through stage 4 chronic kidney disease, or unspecified chronic kidney disease; N93.9 Abnormal uterine and vaginal bleeding, unspecified; Z85.3 Personal history of malignant neoplasm of breast; Z88.8 Allergy status to other drugs, medicaments and biological substances; Z95.0 Presence of cardiac pacemaker; Z79.01 Long term (current) use of anticoagulants; Z79.899 Other long term (current) drug therapy; Z66 Do not resuscitate
CPT/HCPCS: 36415; 70450; 70486; 71045; 76705; 76770; 76856; 80048; 80053; 81001; 83605; 84484; 85025; 87040; 87077; 87086; 87186; 87633; 93005; G0378; J0696; J3480; J7030

== ENCOUNTER 2024-04-15 12:32 | Outpatient (CLI) | payer MEDICARE, MEDICAID | END 2024-04-15 12:33 | disposition home or self-care (01) | LOC: BICULT 12:32 | PROVIDERS: ATTEND Urology | DX: N28.1 Cyst of kidney, acquired (principal) | CPT/HCPCS: 76770 ==